=== PATIENT | female | born 2005 | race Caucasian/White ===

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

== ENCOUNTER 2023-01-16 02:23 | Emergency (ER) | payer OTHER, SELFPAY ==
[2023-01-16 02:29] VITALS: BP 120/62; PULSE 60; RESP 16; TEMP 36.5; O2SAT 98; BMI 26.4
--- NOTE | 2023-01-16 02:38 | ED_ITS ---
HPI - General Adult General Chief complaint: Abdominal Pain Stated complaint: ABD PAIN Time Seen by Provider: 01/16/23 02:27 Source: patient and family Mode of arrival: Ambulatory History of Present Illness HPI narrative: Patient is a 17-year-old female who has had issues with chronic abdominal/pelvic pain for many weeks/months. She is scheduled for surgery tomorrow with her wrapper operator further evaluate the left-sided pain and potential removal of her fallopian tube. She states that for the past several days she is had increasing pain in the left side of her abdomen that is consistent with her prior discomfort. No vomiting. No fevers. No change in bowel habits. No urinary symptoms. No vaginal bleeding. Related Data Previous Rx's Medication Instructions Recorded clindamycin HCl 150 mg capsule 150 mg PO DAILY #30 caps 06/20/22 oxycodone 5 mg tablet 5 mg PO Q4H PRN pain #20 tabs 07/11/22 hydromorphone 4 mg tablet 4 mg PO Q4-6H PRN pain #20 tabs 07/12/22 (Dilaudid) hydrocodone 5 mg-acetaminophen 325 1 tab PO Q4-6H PRN pain #10 tabs 09/10/22 mg tablet ketorolac 10 mg tablet 10 mg PO Q6H PRN pain #14 tabs 09/10/22 ondansetron 4 mg disintegrating 4 mg PO TID-QID PRN nausea and 09/10/22 tablet vomiting #10 tabs fluconazole 150 mg tablet 150 mg PO Q48H 2 doses #2 tabs 12/04/22 (Diflucan) Allergies Allergy/AdvReac Type Severity Reaction Status Date / Time Opioids - Morphine Analogues Allergy Intermediate rash Verified 01/10/23 14:59 doxycycline AdvReac Intermediate vomitt Verified 01/10/23 14:59 amoxicillin AdvReac Vomiting Verified 01/10/23 15:00 Review of Systems Constitutional Constitutional: Reports system reviewed and no additional complaints, except as documented Gastrointestinal Gastrointestinal: Reports system reviewed and no additional complaints, except as documented Genitourinary Genitourinary: Reports system reviewed and no additional complaints, except as documented Integumentary/Breasts Skin/Breast: Reports system reviewed and no additional complaints, except as documented Patient History Medical History Acne (~2015) Chlamydia infection (~2020) Endometriosis (~2020) Heavy menstrual period (~2018) Irregular menstrual cycle (~2020) Ovarian cyst Painful menstrual periods (~2020) Surgical History (Updated 01/10/23 @ 08:13 by Winifred Redman RN) Anesthesia Hx of laparoscopy (07/11/22) Lymphangioma S/P ACL reconstruction (~09/11/21) TOA (tubo-ovarian abscess) (~10/01/21) Social History household members: friend(s) Smoking Status: Current some day smoker alcohol intake: current Smoking Status: Current some day smoker tobacco type: vaping alcohol intake frequency: holidays/special occasions only Alcohol type: wine Substance Use Type: does not use Exam Initial Vital Signs Initial Vital Signs: Vital Signs Temperature 97.7 F 01/16/23 02:29 Pulse Rate 60 01/16/23 02:29 Respiratory Rate 16 01/16/23 02:29 Blood Pressure 120/62 01/16/23 02:29 Pulse Oximetry 98 01/16/23 02:29 Oxygen Delivery Method Room Air 01/16/23 02:29 Const General: cooperative and comfortable GI Inspection: normal to inspection Palpation: soft, No firm, No rigid and tender (Left lower quadrant) Other: Left-sided adnexal pain Back/Spine/Pelvis Back: No CVA tenderness Neuro General: patient alert, patient awake and moves all extremities Course Orders Ordered: Discontinued Medications Hydromorphone HCl (Hydromorphone 1 Mg Inj) 1 mg IM NOW ONE Stop: 01/16/23 02:40 Last Admin: 01/16/23 02:47 Dose: 1 mg Documented By: MARIS Vital Signs Vital signs: Vital Signs - 8 hr 01/16/23 02:29 Temperature 97.7 F Pulse Rate 60 Respiratory Rate 16 Blood Pressure 120/62 Pulse Oximetry 98 Oxygen Delivery Method Room Air Medical Decision Making Lab Data Labs: Point of Care Testing Test Results Negative Glucose POC 94 Urine Dip Bedside Urine Glucose Negative Bedside Urine Bilirubin - Negative Bedside Urine Ketone - Negative Urine Specific [place] 1.020 Bedside Urine Occult Blood - Negative Bedside Urine pH 6.0 Bedside Urine Protein - Negative Bedside Urine Urobilinogen - Negative Bedside Urine Nitrite - Negative Bedside Urine Leukocytes - Negative Esterase Point of care testing: Point of Care Testing Test Results Negative Glucose POC 94 Urine Dip Bedside Urine Glucose Negative Bedside Urine Bilirubin - Negative Bedside Urine Ketone - Negative Urine Specific [place] 1.020 Bedside Urine Occult Blood - Negative Bedside Urine pH 6.0 Bedside Urine Protein - Negative Bedside Urine Urobilinogen - Negative Bedside Urine Nitrite - Negative Bedside Urine Leukocytes - Negative Esterase MDM Narrative Medical decision making narrative: Patient does have a benign exam. She does have left-sided abdomen/adnexal pain that she states is consistent with her prior pain. She is had a very extensive workup of the symptoms. Given the fact that she is scheduled for surgery tomorrow she is an extensive workup we will hold on further imaging for now. She was given pain medication which she states improved her pain quite a bit. Will discharge patient home with instructions to keep her appointment with the wrapper operator tomorrow for her surgery. She was given return precautions. She expressed understanding Discharge Plan Departure Patient Disposition: Home Clinical Impression: Abdominal pain Instructions: DI for Abdominal Pain-Adult Activity Restrictions/Additional Instructions: Recommend that you continue to take all of your medications as directed and follow all of the instructions given to you by the surgeon. Return to the emergency department for new symptoms. Prescriptions: No Action hydromorphone [Dilaudid] 4 mg tablet 4 mg PO Q4-6H PRN (Reason: pain) Qty: 20 0RF clindamycin HCl 150 mg capsule 150 mg PO DAILY Qty: 30 0RF fluconazole [Diflucan] 150 mg tablet 150 mg PO Q48H Qty: 2 4RF Rx Instructions: Repeat second dose 48 hrs after first dose. oxycodone 5 mg tablet 5 mg PO Q4H PRN (Reason: pain) Qty: 20 0RF hydrocodone-acetaminophen 5-325 mg tablet 1 tab PO Q4-6H PRN (Reason: pain) Qty: 10 0RF ketorolac 10 mg tablet 10 mg PO Q6H PRN (Reason: pain) Qty: 14 0RF ondansetron 4 mg tablet,disintegrating 4 mg PO TID-QID PRN (Reason: nausea and vomiting) Qty: 10 0RF Referrals: Ana Rosa Guy ARNP [Primary Care Provider] - Stand Alone Forms: Patient Portal/API, Work Release Note
[2023-01-16] MEDS: HYDROMORPHONE 1 MG INJ IM (02:47)
== END 2023-01-16 03:25 | disposition home or self-care (01) ==
PROVIDERS: Emergency Provider Emergency Medicine; PCP Nurse Practitioner Family
DX: R10.2 Pelvic and perineal pain (principal)
CPT/HCPCS: 81003; 81025; 82962; 96372; 99283; J1170

== ENCOUNTER 2023-01-30 05:16 | Emergency (ER) | payer OTHER, SELFPAY ==
--- NOTE | 2023-01-30 05:20 | ED.ABDPAIN ---
HPI - Abdominal Pain <Tory Edgar, - Last Filed: 01/31/23 02:59> General Chief Complaint: Abdominal Pain Stated Complaint: abd pain Time Seen by Provider: 01/30/23 05:18 Source: patient Mode of arrival: Ambulatory Limitations: no limitations History of Present Illness HPI narrative: This is a 17-year-old female with history of prior tubo-ovarian abscess with salpingectomy on the right. Patient had surgery scheduled for ex lap with OBGYN for evaluation and this was delayed by scheduling circumstances and has been rescheduled for later in the month. Patient states she started having some lower pelvic discomfort about 2 or 3 days ago she thought she might have pulled a muscle it has been slowly increasing over time. She went to work out last night and that made things worse. She denies fevers or chills, no chest pain or shortness of breath, no lightheadedness or passing out, no nausea, no vomiting. She states she is been stooling regularly with form soft stools. No diarrhea, constipation, no black or bloody stools. She denies dysuria, urgency or frequency. No vaginal bleeding or discharge. Patient states this feels different as it is right-sided but also goes to the right upper abdomen which is atypical. She is denying any flank pain. Patient denies any other surgeries besides her right fallopian tube removal. She has allergies to morphine, doxycycline and amoxicillin. No tobacco, alcohol or illicit. She is accompanied by her mother today. Patient is following with RENATE Tinsley. Related Data Previous Rx's Medication Instructions Recorded clindamycin HCl 150 mg capsule 150 mg PO DAILY #30 caps 06/20/22 oxycodone 5 mg tablet 5 mg PO Q4H PRN pain #20 tabs 07/11/22 hydromorphone 4 mg tablet 4 mg PO Q4-6H PRN pain #20 tabs 07/12/22 (Dilaudid) hydrocodone 5 mg-acetaminophen 325 1 tab PO Q4-6H PRN pain #10 tabs 09/10/22 mg tablet ketorolac 10 mg tablet 10 mg PO Q6H PRN pain #14 tabs 09/10/22 ondansetron 4 mg disintegrating 4 mg PO TID-QID PRN nausea and 09/10/22 tablet vomiting #10 tabs fluconazole 150 mg tablet 150 mg PO Q48H 2 doses #2 tabs 12/04/22 (Diflucan) hydrocodone 5 mg-acetaminophen 325 1 tab PO Q4-6H PRN pain #20 tabs 01/30/23 mg tablet ketorolac 10 mg tablet 10 mg PO Q6H PRN pain #14 tabs 01/30/23 ondansetron 4 mg disintegrating 4 mg PO TID-QID PRN nausea and 01/30/23 tablet vomiting #10 tabs Allergies Allergy/AdvReac Type Severity Reaction Status Date / Time Opioids - Morphine Analogues Allergy Intermediate rash Verified 01/10/23 14:59 doxycycline AdvReac Intermediate vomitt Verified 01/10/23 14:59 amoxicillin AdvReac Vomiting Verified 01/10/23 15:00 Review of Systems <Tory Edgar DO - Last Filed: 01/31/23 02:59> Review of Systems ROS Unobtainable: All systems reviewed & are unremarkable except as noted in HPI and below Patient History <Tory Edgar DO - Last Filed: 01/31/23 02:59> Medical History Acne (~2015) Chlamydia infection (~2020) Endometriosis (~2020) Heavy menstrual period (~2018) Irregular menstrual cycle (~2020) Ovarian cyst Painful menstrual periods (~2020) Surgical History Anesthesia Hx of laparoscopy (07/11/22) Lymphangioma S/P ACL reconstruction (~09/11/21) TOA (tubo-ovarian abscess) (~10/01/21) Social History household members: friend(s) Smoking Status: Current some day smoker alcohol intake: current Smoking Status: Current some day smoker tobacco type: vaping alcohol intake frequency: holidays/special occasions only Alcohol type: wine Substance Use Type: does not use Exam <Tory Edgar DO - Last Filed: 01/31/23 02:59> Narrative Exam Narrative: GENERAL: Alert and oriented x three, moderate distress. HEENT: Head normocephalic, atraumatic, EOMI, pupils reactive, face symmetric, moist mucous membranes NECK: Supple, full range of motion CARDIOVASCULAR: Regular rate and rhythm without murmurs, rubs or gallops. RESPIRATORY: Breath sounds equal bilaterally, no wheezes rales or rhonchi. ABDOMEN: Soft, right lower and upper quadrant tenderness. Normoactive bowel sounds all 4 quadrants. No guarding or rebound, rigidity, no mass : No CVA tenderness EXTREMITIES: Normal range of motion, no clubbing or edema. Neurovascularly intact NEUROLOGICAL: Cranial nerves II through XII grossly intact. Moving all extremities SKIN: Warm, dry, no petechiae, no rashes or lesions. Initial Vital Signs Initial Vital Signs: Vital Signs Temperature 97 F L 01/30/23 05:21 Pulse Rate 68 01/30/23 05:21 Respiratory Rate 18 01/30/23 05:21 Blood Pressure 137/85 01/30/23 05:21 Pulse Oximetry 99 01/30/23 05:21 Oxygen Delivery Method Room Air 01/30/23 05:21 <Jose Lynne DO - Last Filed: 01/30/23 19:18> Initial Vital Signs Initial Vital Signs: Vital Signs Temperature 97 F L 01/30/23 05:21 Pulse Rate 68 01/30/23 05:21 Respiratory Rate 18 01/30/23 05:21 Blood Pressure 137/85 01/30/23 05:21 Pulse Oximetry 99 01/30/23 05:21 Oxygen Delivery Method Room Air 01/30/23 05:21 Course <Troy Edgar, DO - Last Filed: 01/31/23 02:59> Orders Ordered: Discontinued Medications Hydromorphone HCl (Hydromorphone 0.5 Mg Inj) 0.5 mg IV NOW ONE Stop: 01/30/23 08:29 Last Admin: 01/30/23 08:39 Dose: 0.5 mg Documented By: AUSTIN Sodium Chloride (Normal Saline 0.9%) 1,000 mls @ 1,000 mls/hr IV BOLUS ONE Stop: 01/30/23 06:32 Last Infusion: 01/30/23 06:55 Dose: 0 mls/hr Documented By: Admin: 01/30/23 05:52 Dose: 1,000 mls/hr Documented By: GC Ketorolac Tromethamine (Ketorolac 30 Mg/Ml Vial) 15 mg IV NOW ONE Stop: 01/30/23 05:34 Last Admin: 01/30/23 05:51 Dose: 15 mg Documented By: MARIS Vital Signs Vital signs: Vital Signs - 8 hr 01/30/23 05:21 Temperature 97 F L Pulse Rate 68 Respiratory Rate 18 Blood Pressure 137/85 Pulse Oximetry 99 Oxygen Delivery Method Room Air <Jose Lynne DO - Last Filed: 01/30/23 19:18> Orders Ordered: Discontinued Medications Hydromorphone HCl (Hydromorphone 0.5 Mg Inj) 0.5 mg IV NOW ONE Stop: 01/30/23 08:29 Last Admin: 01/30/23 08:39 Dose: 0.5 mg Documented By: AUSTIN Sodium Chloride (Normal Saline 0.9%) 1,000 mls @ 1,000 mls/hr IV BOLUS ONE Stop: 01/30/23 06:32 Last Infusion: 01/30/23 06:55 Dose: 0 mls/hr Documented By: Admin: 01/30/23 05:52 Dose: 1,000 mls/hr Documented By: MARIS Ketorolac Tromethamine (Ketorolac 30 Mg/Ml Vial) 15 mg IV NOW ONE Stop: 01/30/23 05:34 Last Admin: 01/30/23 05:51 Dose: 15 mg Documented By: MARIS Vital Signs Vital signs: Vital Signs - 8 hr 01/30/23 05:21 Temperature 97 F L Pulse Rate 68 Respiratory Rate 18 Blood Pressure 137/85 Pulse Oximetry 99 Oxygen Delivery Method Room Air MDM - Abdominal Pain <Tory Edgar DO - Last Filed: 01/31/23 02:59> Lab Data 01/30/23 05:45 01/30/23 05:45 Labs: Lab Results 01/30/23 01/30/23 01/30/23 Range/Units 05:45 05:45 05:45 WBC 6.7 (4.5-11.0) X10^3/uL RBC 4.32 (4.0-5.2) X10^6/uL Hgb 12.7 (12.0-16.0) g/dL Hct 37.3 (36-46) % MCV 86.4 (80-100) fL MCH 29.4 (26-34) PG MCHC 34.0 (30-36) % RDW 14.3 (11.6-14.8) % Plt Count 304 (150-400) X10^3/uL Neut % (Auto) 58.4 (50-75) % Lymph % (Auto) 28.8 (25-40) % [place] % (Auto) 9.6 (3-14) % Eos % (Auto) 2.5 (2-4) % Baso % (Auto) 0.7 (0-2) % Neut # (Auto) 3900 (1262-8600) /uL Lymph # (Auto) 1900 (1563-7198) /uL [place] # (Auto) 600 (0-900) /uL Eos # (Auto) 200 (0-450) /uL Baso # (Auto) 0 (0-100) /uL Sodium 135 L (137-145) mmol/L Potassium 3.7 (3.4-5.1) mmol/L Chloride 103 (98-107) mmol/L Carbon Dioxide 26 (22-32) mmol/L BUN 12 (7-17) mg/dL Creatinine 0.67 (0.52-1.04) mg/dL Estimated GFR > 60 (>60) mL/min BUN/Creatinine Ratio 17.9 (6-22) Glucose 83 (70-100) mg/dL Calcium 8.6 (8.4-10.2) mg/dL Total Bilirubin 0.7 (0.2-1.3) mg/dL AST 27 (14-36) IU/L ALT 30 (<35) IU/L Alkaline Phosphatase 80 (38-126) U/L Total Protein 6.5 (6.3-8.2) g/dL Albumin 3.9 (3.5-5.0) g/dL Globulin 2.6 (1.7-4.1) g/dL Albumin/Globulin Ratio 1.5 (1.0-2.8) Lipase 104 (23-300) U/L Serum , Qual Cancelled Point of care testing: Point of Care Testing Test Results Negative MDM Narrative Medical decision making narrative: This is a 17-year-old female who presents with acute on chronic or pelvic/abdominal pain. On exam patient has right upper and lower quadrant tenderness. She is afebrile, not tachycardic or hypotensive. She appears quite uncomfortable. Plan for labs including CBC, CMP, lipase, hCG and urine sample. Patient has had prior tubo-ovarian abscess as well as hemorrhagic cyst in the past. Plan for fluids, pain medication, ultrasound and reassessment. Discussed obtaining CT but felt be more appropriate to evaluate with ultrasound at this time. Patient signed out to Dr. Lynne while awaiting results. <Jose Lynne, DO - Last Filed: 01/30/23 19:18> Lab Data Labs: Lab Results 01/30/23 01/30/23 01/30/23 Range/Units 05:45 05:45 05:45 WBC 6.7 (4.5-11.0) X10^3/uL RBC 4.32 (4.0-5.2) X10^6/uL Hgb 12.7 (12.0-16.0) g/dL Hct 37.3 (36-46) % MCV 86.4 (80-100) fL MCH 29.4 (26-34) PG MCHC 34.0 (30-36) % RDW 14.3 (11.6-14.8) % Plt Count 304 (150-400) X10^3/uL Neut % (Auto) 58.4 (50-75) % Lymph % (Auto) 28.8 (25-40) % [place] % (Auto) 9.6 (3-14) % Eos % (Auto) 2.5 (2-4) % Baso % (Auto) 0.7 (0-2) % Neut # (Auto) 3900 (7768-3883) /uL Lymph # (Auto) 1900 (4880-3822) /uL [place] # (Auto) 600 (0-900) /uL Eos # (Auto) 200 (0-450) /uL Baso # (Auto) 0 (0-100) /uL Sodium 135 L (137-145) mmol/L Potassium 3.7 (3.4-5.1) mmol/L Chloride 103 (98-107) mmol/L Carbon Dioxide 26 (22-32) mmol/L BUN 12 (7-17) mg/dL Creatinine 0.67 (0.52-1.04) mg/dL Estimated GFR > 60 (>60) mL/min BUN/Creatinine Ratio 17.9 (6-22) Glucose 83 (70-100) mg/dL Calcium 8.6 (8.4-10.2) mg/dL Total Bilirubin 0.7 (0.2-1.3) mg/dL AST 27 (14-36) IU/L ALT 30 (<35) IU/L Alkaline Phosphatase 80 (38-126) U/L Total Protein 6.5 (6.3-8.2) g/dL Albumin 3.9 (3.5-5.0) g/dL Globulin 2.6 (1.7-4.1) g/dL Albumin/Globulin Ratio 1.5 (1.0-2.8) Lipase 104 (23-300) U/L Serum , Qual Cancelled Point of care testing: Point of Care Testing Test Results Negative MDM Narrative Medical decision making narrative: This is a 17-year-old female who presents with acute on chronic or pelvic/abdominal pain. On exam patient has right upper and lower quadrant tenderness. She is afebrile, not tachycardic or hypotensive. She appears quite uncomfortable. Plan for labs including CBC, CMP, lipase, hCG and urine sample. Patient has had prior tubo-ovarian abscess as well as hemorrhagic cyst in the past. Plan for fluids, pain medication, ultrasound and reassessment. Discussed obtaining CT but felt be more appropriate to evaluate with ultrasound at this time. Patient signed out to Dr. Lynne while awaiting results. [[id number]] (Maged) Patient received in sign out from [[email or web address]]. I have reviewed the clinical course and performed an independent history and physical exam. At this time we are still Pending results of imaging At time of discharge there are no surgical findings on imaging, labs are within the normal, patient's pain is well controlled and she is tolerating orals. We have discussed findings including plan for follow-up Discharge Plan Departure Patient Disposition: Home Clinical Impression: Right lower quadrant abdominal pain Instructions: DI for Abdominal Pain-Adult Activity Restrictions/Additional Instructions: *You have been diagnosed with [right lower quadrant ] *What to do: *Please continue to take your regular medications as directed. [x ] New medication prescriptions sent to your pharmacy: [ [facility] ] [ ] New medication written as a paper prescription [ ] No new medications given *Please follow up with your primary care provider in 2-3 days, call for an appointment. Let them know you were seen in the Emergency Department and that we ask that you be seen in follow up. We will electronically transmit a record of today's note if your PCP is in our system *If you do not have a primary care provider please contact the [facility] Resource line at [phone]. They will ask some questions about your medical history and help get you set up with a doctor in the community. *Return to Emergency Department if you should have any new, worsening or concerning symptoms, such as [fever greater than 101 F, shaking chills, worsening pain, persistent vomiting or other bothersome symptoms] Prescriptions: New hydrocodone-acetaminophen 5-325 mg tablet 1 tab PO Q4-6H PRN (Reason: pain) Qty: 20 0RF ketorolac 10 mg tablet 10 mg PO Q6H PRN (Reason: pain) Qty: 14 0RF ondansetron 4 mg tablet,disintegrating 4 mg PO TID-QID PRN (Reason: nausea and vomiting) Qty: 10 0RF No Action hydromorphone [Dilaudid] 4 mg tablet 4 mg PO Q4-6H PRN (Reason: pain) Qty: 20 0RF clindamycin HCl 150 mg capsule 150 mg PO DAILY Qty: 30 0RF fluconazole [Diflucan] 150 mg tablet 150 mg PO Q48H Qty: 2 4RF Rx Instructions: Repeat second dose 48 hrs after first dose. oxycodone 5 mg tablet 5 mg PO Q4H PRN (Reason: pain) Qty: 20 0RF hydrocodone-acetaminophen 5-325 mg tablet 1 tab PO Q4-6H PRN (Reason: pain) Qty: 10 0RF ketorolac 10 mg tablet 10 mg PO Q6H PRN (Reason: pain) Qty: 14 0RF ondansetron 4 mg tablet,disintegrating 4 mg PO TID-QID PRN (Reason: nausea and vomiting) Qty: 10 0RF Referrals: Ana Rosa Guy ARNP [Primary Care Provider] - Rei Hahn MD [Physician] - Stand Alone Forms: Patient Portal/API
[2023-01-30 05:21] VITALS: BP 137/85; PULSE 68; RESP 18; TEMP 36.1; O2SAT 99; BMI 28.7
--- NOTE | 2023-01-30 05:33 | DI.US.S_ITS ---
PROCEDURE: US PELVIC COMPLETE INDICATIONS: RIGHT PELVIC PAIN TECHNIQUE: Real-time scanning was performed of the pelvic organs, with image documentation. Additional endovaginal scanning was necessary due to incomplete visualization of the adnexal and endometrial structures by transabdominal scanning. COMPARISON: [facility], , US PELVIC COMPLETE, 12/04/2022, 15:25. FINDINGS: Uterus: Uterus is anteverted and normal in size at 6.7 x 3.7 x 5.2 cm. The myometrium is homogeneous. The endometrium measures 14 mm combined thickness. Ovaries: The right ovary measures 3.7 x 4.0 x 2.8 cm, with a calculated ovarian volume of 21.3 cc. The left ovary measures 2.9 x 2.0 x 2.7 cm, with a calculated ovarian volume of 8.1 cc. A 2.6 x 2.1 x 2.6 cm simple cyst/dominant follicle seen in the right ovary. Less than 12 follicles can be seen in each ovary. No adnexal masses are seen. Other: Physiologic amount of free fluid is present. IMPRESSION: Right ovary is enlarged by a 2.6 cm simple cyst. No acute sonographic abnormality. There is no significant discrepancy when compared to the overnight preliminary report. We strive to produce accurate, complete, and clear reports of imaging services. To assist us in improving patient care, this report was composed using standard report templates and voice recognition software. Therefore, it may contain abnormal punctuation, insertions and/or omissions. Occasional wrong-word or sound-alike substitutions may occur. Though we review the report and make efforts to correct it, we do recommend that the report be read carefully in proper context to recognize any text inaccuracies. Approved by: Onesimo Sin M.D. on 01/30/2023 at 8:55
--- NOTE | 2023-01-30 05:33 | DI.US.S_ITS ---
PROCEDURE: US ABDOMEN LIMITED INDICATIONS: RIGHT FLANK PAIN TECHNIQUE: Real-time focused scanning was performed of the abdomen, with image documentation. COMPARISON: [facility], CT, CT ABDOMEN PELVIS W CON, 09/10/2022, 3:28. FINDINGS: Liver is normal in size at 14.5 cm and demonstrates normal echogenicity. The gallbladder appears normal without gallstones or gallbladder wall thickening. There is no pericholecystic fluid. Sonographic Rushing sign is negative. No intrahepatic or extrahepatic biliary duct dilatation. Common bile duct measures 2.9 mm in diameter. The visualized portions of the pancreas are unremarkable. Right kidney measures 9.4 cm in length. No hydronephrosis. No free fluid is seen in the right upper quadrant. IMPRESSION: No acute sonographic abnormality in the right upper quadrant. There is no significant discrepancy when compared to the overnight preliminary report. Approved by: Onesimo Sin M.D. on 01/30/2023 at 8:52
[2023-01-30] MEDS: KETOROLAC 30 MG/ML VIAL 15 MG IV (05:51)
[2023-01-30] MEDS: SODIUM CHLORIDE 0.9% 1,000 ML 1000 ML IV (05:52)
[2023-01-30 07:06] LABS: Add Manual Diff / Slide Review NO; Basophils Absolute Auto 0 /uL (0-100); Basophils Percent Auto 0.7 % (0-2); Eosinophils Absolute Auto 200 /uL (0-450); Eosinophils Percent Auto 2.5 % (2-4); Hematocrit 37.3 % (36-46); Hemoglobin 12.7 g/dL (12.0-16.0); Lymphocytes Absolute Auto 1900 /uL (1100-4500); Lymphocytes Percent Auto 28.8 % (25-40); Mean Corpuscular Hemoglobin 29.4 PG (26-34); Mean Corpuscular Volume 86.4 fL (80-100); Monocytes Absolute Auto 600 /uL (0-900); Monocytes Percent Auto 9.6 % (3-14); Neutrophils Absolute Auto 3900 /uL (1500-7000); Neutrophils Percent Auto 58.4 % (50-75); Platelet Count 304 X10^3/uL (150-400); Red Blood Cell Count 4.32 X10^6/uL (4.0-5.2); Red Cell Distribution Width 14.3 % (11.6-14.8); White Blood Cell Count 6.7 X10^3/uL (4.5-11.0)
[2023-01-30 07:20] LABS: Alanine Aminotransferase 30 IU/L (<35); Albumin 3.9 g/dL (3.5-5.0); Albumin Globulin Ratio 1.5 (1.0-2.8); Alkaline Phosphatase 80 U/L (38-126); Aspartate Aminotransferase 27 IU/L (14-36); BUN Creatinine Ratio 17.9 (6-22); Bilirubin Total 0.7 mg/dL (0.2-1.3); Blood Urea Nitrogen 12 mg/dL (7-17); Calcium 8.6 mg/dL (8.4-10.2); Carbon Dioxide 26 mmol/L (22-32); Chloride 103 mmol/L (98-107); Estimated Glomerular Filt Rate > 60 mL/min (>60); Globulin 2.6 g/dL (1.7-4.1); Glucose 83 mg/dL (70-100); HEMOLYSIS < 15 (0-50); Lipase 104 U/L (23-300); Potassium 3.7 mmol/L (3.4-5.1); Sodium 135 mmol/L (137-145); Total Protein 6.5 g/dL (6.3-8.2)
[2023-01-30] MEDS: HYDROMORPHONE 0.5 MG INJ IV (08:39)
[2023-01-30 08:43] VITALS: PULSE 71; O2SAT 97
[2023-01-30 08:45] VITALS: BP 117/56; PULSE 64; O2SAT 98
[2023-01-30 09:00] VITALS: PULSE 55; O2SAT 98
== END 2023-01-30 09:14 | disposition home or self-care (01) ==
PROVIDERS: Emergency Medicine; Emergency Provider Emergency Medicine; PCP Nurse Practitioner Family
DX: R10.31 Right lower quadrant pain (principal); R10.2 Pelvic and perineal pain
CPT/HCPCS: 36415; 76705; 76830; 76856; 80053; 81025; 83690; 85025; 93976; 96374; 96375; 99284; J1170; J1885

== ENCOUNTER 2023-02-06 13:45 | Day surgery (SDC) | payer OTHER, SELFPAY ==
[2023-01-10 08:05] VITALS: BMI 28.7
[2023-02-06] VITALS (8 sets, daily range): BP systolic 110–147; BP diastolic 60–91; PULSE 55–95; RESP 12–21; TEMP 36.3–36.9; O2SAT 98–100; BMI 28.7
[2023-02-06] MEDS: LACTATED RINGERS 1,000 ML 42 ML IV (14:31)
[2023-02-06] MEDS: SCOPOLAMINE 1 PATCH TOP (15:57)
--- NOTE | 2023-02-06 16:06 | PM.PREOP ---
Pre-operative Note COVID-19 COVID-19 status: Not tested Criteria for continued procedure: Non-surgical alternatives not available or appropriate per current SOC Interval Note History & Physical reviewed/Exam performed by Physician: Yes Changes to H&P: No
--- NOTE | 2023-02-06 16:38 | SUR.OPER ---
Lithotomy on padded OR bed, head on pillow, arms secured on padded arm boards at <90 degrees abduction. Legs secured in padded yellow fins stirrups.
[2023-02-06] MEDS: BUPIVACAINE 0.5% (PF) 30 ML, EPINEPHrine 0.15 MG INJ (16:50)
--- NOTE | 2023-02-06 17:24 | P.OP_ITS ---
Operative Date/Time/Diagnoses Date of procedure: 02/06/23 Time of procedure: 16:15 Pre-op diagnosis: Chronic pelvic pain History of right tubo-ovarian abscess Post-op diagnosis: other (Same as above; pelvic adhesions, minimal pelvic endometriosis) Procedure & Clinicians Procedure: Procedures Operation Date: 02/06/23 15:30 Actual Procedure Side Surgeon suad Bee Laparoscopy, with lysis of adhesions and fulguration of endometrial implants s Drainage follicular cyst, right ovary Rei Hahn MD Indications: Adeline is a 17-year-old nulligravida who returns today with a 4?month history of persistent left lower quadrant pain which is sharp and stabbing, and intermittent.? It does not seem to be related to her cycles but she is been bleeding for the last 2 weeks and her pain has been worse during that period of time.? In addition she has significant pain when she strains to have a bowel movement or empties her bladder.? Pelvic US performed 12/04/2022 shows: FINDINGS:? ?? Uterine body is normal in size.? Echogenic fluid in the uterine cavity may represent blood products.? There is no definite evidence of gestational sac.? There is a thick-walled 2.7 cm heterogeneous complex hypoechoic mass in the left ovary with peripheral vascularity.? This could potentially represent an ectopic although a corpus luteum or hemorrhagic cyst could have a similar appearance.? There is a similar but smaller 1.5 cm hypoechoic area in the left ovary.? ? IMPRESSION:? ? Bilateral ovarian hypoechoic masses with peripheral vascularity.? Ectopic cannot be strictly excluded for either these locations. ? No convincing evidence of intrauterine . ? Continued surveillance and correlation with serial serum beta-hCG measurements and clinical symptoms recommended. Because of the patient's persistent pain and the impact it is having on her ability to work and normal daily activities, she has decided that she would like to proceed with a 2nd laparoscopy with plans to remove the left fallopian tube if the tube is severely affected by adhesive disease and possible left ovarian cystectomy or possible left oophorectomy.? At the same time she would like to have a Mirena IUD inserted to address her persistent menometrorrhagia.? She presents today for her scheduled surgery. Surgeon: Rei aHhn Anesthesia Type: General Operative Notes Findings: The anterior cul-de-sac is free of any abnormality. There is no adhesions and there does not appear to be any superficial endometriosis in the anterior cul-de-sac. The uterus is normal in size and shape, retroverted. The left ovary is normal in appearance and size but has some filmy adhesions on the surface. There were no adhesions or endometrial implants in the ovarian fossa on the left. The left fallopian tube appears to be mobile and the fimbria appear unaffected by the patient's prior episode of acute salpingitis with right-sided tubo-ovarian abscess. In the absence of severe tubal disease, the decision was made to leave the left tube in-situ along with the left ovary which was also normal in appearance. The posterior cul-de-sac was largely unremarkable with the exception of a masters window immediately lateral to the left uterosacral ligament near its insertion in the posterior cervix on the left side. In the base of the masters window there appeared to be numerous superficial endometrial implants. All these implants were destroyed during the course of the surgery. There were no other areas of endometriosis visible in the posterior cul-de-sac. The right ovarian fossa had some filmy adhesions involving the ovary which were easily lysed with sharp and blunt dissection. The ovary on the right was enlarged slightly with a follicular cyst which was opened with monopolar current and drained of clear fluid. There was no evidence of any endometriosis or endometrioma within the right ovary. Using the appendix and the upper abdomen were normal to laparoscopic visualization. Closure Type: primary Specimen(s): none Estimated blood loss (mL): 10 Blood products transfused: none Procedure in detail: With the patient under satisfactory general anesthesia in the modified dorsal lithotomy position, the perineum, vagina, and abdomen were prepped and draped in the usual manner for laparoscopy. A pre-surgical safety time-out was then taken in accordance with [facility] OR protocols. No uterine manipulator was placed and attention was turned to the laparoscopy. The inferior edge of the umbilicus was infiltrated with 0.5% Marcaine with epinephrine and a 1 cm vertical incision was made. A Veress needle was then used to insufflate the abdomen with carbon dioxide and once it was properly insufflated, a 5 mm trocar and sleeve were placed through the incision into the abdominal cavity. The proper placement of the sleeve was confirmed with laparoscopy and a 2nd and 3rd 5 mm port was placed in the left and right mid quadrants using a similar technique. Using a 3 puncture technique the pelvis and abdomen were visualized and photographically documented. The ovary on the right side was mobilized and the adhesions in the ovarian fossa were lysed/removed with sharp and blunt dissection. A monopolar L hook was then used to puncture the surface of the follicular cyst and clear fluid was seen to exude from the defect created with the cautery. The inner surface of the follicular cyst was visualized with the laparoscope and found to be smooth with no abnormalities or suggestive endometriosis within the cyst. Attention was then turned to the left adnexa which was thoroughly visualized. The filmy adhesions on the surface of the ovary were removed with a combination of blunt dissection, sharp dissection, and judicious use of monopolar current. At the completion of the case the left ovary was completely mobile and the left fallopian tube was similarly mobile. Inspection of the left ovarian fossa showed no abnormalities but there was a masters window immediately lateral to the insertion of the uterosacral ligament. Monopolar current was used judiciously to destroy all areas of superficial endometriosis implants and at the completion of the process no other evidence of endometriosis was visible. The pelvis was thoroughly irrigated and fully inspected again. There were no areas of bleeding or other abnormalities noted. Accordingly the pneumoperitoneum was then vented the sleeves removed. A laparoscopic incisions were then closed with 4-0 Monocryl using inverted interrupted stitches, skin glue was applied, followed by appropriate dressings. Patient was then awakened from anesthesia and transferred to the PACU for a period of observation after having tolerated the procedure well Complications: none Post-operative Condition: stable Disposition: PACU Plan for aftercare: Routine postoperative care
[2023-02-06] MEDS: HYDROMORPHONE 2 MG INJ IV (17:56)
[2023-02-06] MEDS: ONDANSETRON 4 MG/2 ML INJ IV (18:00)
[2023-02-06] MEDS: hydrOXYzine 50 MG/ML INJ 25 MG IM (18:03)
[2023-02-06] MEDS: OXYCODONE/ACETAMINOPHEN 5/325 TABLET 1 TAB PO (18:24)
== END 2023-02-06 19:05 | disposition home or self-care (01) ==
PROVIDERS: PCP Nurse Practitioner Family; Referring Provider Obstetrics & Gynecology; Visit Provider Obstetrics & Gynecology
PROC: (CPT 58662; principal; 2023-02-06 15:30)
DX: R10.2 Pelvic and perineal pain (principal); N73.6 Female pelvic peritoneal adhesions (postinfective); N80.329 Endometriosis of the posterior cul-de-sac, unspecified depth; N83.01 Follicular cyst of right ovary
CPT/HCPCS: 58662; 49322; J0171; J1170; J2250; J2405; J2704; J3010; J3410

== ENCOUNTER 2023-03-16 13:19 | Emergency (ER) | payer OTHER, SELFPAY ==
[2023-03-16 13:25] VITALS: BP 126/77; PULSE 64; RESP 18; TEMP 36.7; O2SAT 99; BMI 26.9
--- NOTE | 2023-03-16 13:34 | DI.RAD.S_ITS ---
PROCEDURE: XR CHEST 2V INDICATIONS: chest congestion TECHNIQUE: 2 views of the chest were acquired. COMPARISON: None. FINDINGS: Surgical changes and devices: None. Lungs and pleura: No dense consolidations, pleural effusion, or pneumothorax. Slight opacification over the right cardiac border is likely secondary to mild pectus anterior chest wall deformity. Mediastinum: Mediastinal contours are normal. Heart size is normal. Bones and chest wall: No suspicious bony abnormalities. Soft tissues appear unremarkable. IMPRESSION: No acute cardiopulmonary disease. Dictated by: Lina Zavala M.D. on 03/16/2023 at 13:21 Approved by: Lina Zavala M.D. on 03/16/2023 at 13:22
--- NOTE | 2023-03-16 13:59 | ED_ITS ---
HPI - URI/Sore Throat <Vivi Grey PA-C - Last Filed: 03/16/23 15:09> General Chief Complaint: Upper Respiratory Symptoms Stated Complaint: SOB, cough Time Seen by Provider: 03/16/23 13:31 Source: patient Mode of arrival: Ambulatory History of Present Illness HPI Narrative: 18-year-old woman presents with concern for severe persistent cough going on for 2 weeks worsening, some headaches, feeling feverish although with no known fevers recently and generally feeling unwell for the last few days. She states she feels like her chest is ?full of phlegm? she has been coughing excessively despite taking Tessalon she does endorse some discomfort in the center of her chest specifically with coughing she says it feels a little like a burning sensation. Patient is concerned she may have pneumonia. She notes she previously had pneumonia when she was a teenager. Denies other respiratory history. Patient also states she is had less appetite the last few days she has been drinking fluids and she has been eating. She has some throat irritation but it is not particularly painful. Denies nausea, vomiting, diarrhea, ear pain or other symptoms. Related Data Previous Rx's Medication Instructions Recorded codeine 7.5 mg-guaifenesin 225 7.5 ml PO Q4-6H PRN cough #473 mL 03/16/23 mg/5 mL oral liquid sulfamethoxazole 400 1 tab PO BID Bordetella 03/16/23 mg-trimethoprim 80 mg tablet parapertussis 7 days #14 tabs (Bactrim) Allergies Allergy/AdvReac Type Severity Reaction Status Date / Time lactose Allergy Intermediate Hives/Nause Verified 03/16/23 13:28 a Opioids - Morphine Analogues Allergy Intermediate rash Verified 03/16/23 13:28 doxycycline AdvReac Intermediate vomitt Verified 03/16/23 13:28 amoxicillin AdvReac Vomiting Verified 03/16/23 13:28 Review of Systems <Vivi Grey PA-C - Last Filed: 03/16/23 15:09> Review of Systems Narrative: See HPI Patient History <Vivi Grey PA-C - Last Filed: 03/16/23 15:09> Medical History Acne (~2015) Chlamydia infection (~2020) Endometriosis (~2020) Heavy menstrual period (~2019) Irregular menstrual cycle (~2020) Ovarian cyst Painful menstrual periods (~2020) Surgical History Anesthesia Hx of laparoscopy (07/11/22) Lymphangioma S/P ACL reconstruction (~09/11/21) TOA (tubo-ovarian abscess) (~10/01/21) Social History household members: friend(s) Smoking Status: Never smoker alcohol intake: current Smoking Status: Never smoker tobacco type: vaping alcohol intake frequency: holidays/special occasions only Alcohol type: wine Substance Use Type: does not use Exam <Vivi Grey PA-C - Last Filed: 03/16/23 15:09> Narrative Exam Narrative: GENERAL: 18 year old patient appears stated age. Well-developed patient, in mild distress, nontoxic appearing. HEAD: Atraumatic. Normocephalic. EYES: Pupils equal round and reactive. Extraocular motions intact. No scleral icterus. No injection or drainage. ENT: Nose without bleeding, purulent drainage. Throat with mild posterior pharyngeal erythema, without tonsillar hypertrophy or exudate. Airway patent. Patient has right maxillary sinus tenderness with palpation on percussion, frontal and left maxillary sinuses are nontender. NECK: Trachea midline. Non tender. No lymphadenopathy CARDIOVASCULAR: Regular rate and rhythm without murmurs, gallops, or rubs. RESPIRATORY: Clear to auscultation. Shallow breaths with frequent coughing, Breath sounds equal bilaterally. No wheezes, rales, or rhonchi. GASTROINTESTINAL: Abdomen soft, non-tender, nondistended. EXTREMITIES: No edema or joint tenderness. BACK: Nontender without deformity or crepitance. No flank tenderness. NEURO: AOx3. SKIN: No rash or erythema of visible areas Initial Vital Signs Initial Vital Signs: Vital Signs Temperature 98.1 F 03/16/23 13:25 Pulse Rate 64 03/16/23 13:25 Respiratory Rate 18 03/16/23 13:25 Blood Pressure 126/77 03/16/23 13:25 Pulse Oximetry 99 03/16/23 13:25 Oxygen Delivery Method Room Air 03/16/23 13:25 <Jose Lynne DO - Last Filed: 03/16/23 15:36> Initial Vital Signs Initial Vital Signs: Vital Signs Temperature 98.1 F 03/16/23 13:25 Pulse Rate 64 03/16/23 13:25 Respiratory Rate 18 03/16/23 13:25 Blood Pressure 126/77 03/16/23 13:25 Pulse Oximetry 99 03/16/23 13:25 Oxygen Delivery Method Room Air 03/16/23 13:25 Course <Vivi Grey PA-C - Last Filed: 03/16/23 15:09> Course Course Narrative: Reviewed chest x-ray imaging with Dr. Lynne, patient did have opacity over the cardiac border, read as negative cardiopulmonary findings by Radiology however we feel there is a possibility this could represent an infiltrate. Based on patient's symptoms and history anticipate treating for pneumonia. 1430 Orders Ordered: ED Orders 03/16/23 13:34 Chest [XR chest 2V] Stat 03/16/23 13:42 Respiratory Panel (Film Array) Stat Vital Signs Vital signs: Vital Signs - 8 hr 03/16/23 13:25 03/16/23 14:56 Temperature 98.1 F Pulse Rate 64 66 Respiratory Rate 18 14 Blood Pressure 126/77 116/69 Pulse Oximetry 99 98 Oxygen Delivery Method Room Air Room Air <DO Daniel Roa Last Filed: 03/16/23 15:36> Orders Ordered: ED Orders 03/16/23 13:34 Chest [XR chest 2V] Stat 03/16/23 13:42 Respiratory Panel (Film Array) Stat Vital Signs Vital signs: Vital Signs - 8 hr 03/16/23 13:25 03/16/23 14:56 Temperature 98.1 F Pulse Rate 64 66 Respiratory Rate 18 14 Blood Pressure 126/77 116/69 Pulse Oximetry 99 98 Oxygen Delivery Method Room Air Room Air MDM - URI/Sore Throat <IVANNA Armstrong Last Filed: 03/16/23 15:09> Differential Diagnosis Differential diagnosis: Likely upper respiratory infection, sinusitis, viral infection, bronchitis and other (Viral pneumonia, bacterial pneumonia) Lab Data Labs: Lab Results 03/16/23 Range/Units 13:42 Chlamy pneumoniae PCR Not detected (Not Detect) Adenovirus (PCR) Not detected (Not Detect) B. pertussis DNA (PCR) Not detected (Not Detecte) B.parapertussis DNA PCR Detected H (Not Detecte) Coronavirus OC43 (PCR) Not detected (Not Detect) Coronavirus HKU1 (PCR) Not detected (Not Detect) Coronavirus 229E (PCR) Not detected (Not Detect) SARS-CoV-2 (PCR) Not detected (Not Detecte) Coronavirus NL63 (PCR) Not detected (Not Detect) Human Metapneumovir PCR Not detected (Not Detect) Influenza Type A (PCR) Not detected (Not Detect) Influenza Type B (PCR) Not detected (Not Detect) M. pneumoniae (PCR) Not detected (Not Detect) Parainfluenza 1 (PCR) Not detected (Not Detect) Parainfluenza 2 (PCR) Not detected (Not Detect) Parainfluenza 3 (PCR) Not detected (Not Detect) Parainfluenza 4 (PCR) Not detected (Not Detect) RSV (PCR) Not detected (Not Detect) Entero/Rhino (PCR) Not detected (Not Detect) Imaging Data Chest x-ray: Radiologist's Impression: [place] [address] XRay Report Signed Patient: Adeline Rosen MR#: [id number] : 2005 Acct:[id number] Age/Sex: 18 / F Date of Service: 03/16/23 Loc: Accession Number: [id number] ?? Procedure: XR chest 2V Ordering Provider: Vivi Grey P.A-C PROCEDURE:? XR CHEST 2V ? INDICATIONS:? chest congestion ? TECHNIQUE:? 2 views of the chest were acquired.? ? COMPARISON:? None. ? FINDINGS:? ? Surgical changes and devices:? None.? ? Lungs and pleura:? No dense consolidations, pleural effusion, or pneumothorax.? Slight opacification over the right cardiac border is likely secondary to mild pectus anterior chest wall deformity. ? Mediastinum:? Mediastinal contours are normal.? Heart size is normal.? ? Bones and chest wall:? No suspicious bony abnormalities.? Soft tissues appear unremarkable.? ? IMPRESSION:? No acute cardiopulmonary disease.? ? ? Dictated by: Lina Zavala M.D. on 03/16/2023 at 13:21 ? ? Approved by: Lina Zavala M.D. on 03/16/2023 at 13:22?? [facility] Narrative Medical decision making narrative: 18-year-old generally healthy-appearing woman presents with concern for 2 weeks of very persistent cough that has been bothersome kept her from sleeping feeling unwell over the last couple of days and had less appetite. Concern for possible pneumonia. Chest x-ray is read as negative however possible infiltrate/opacity. Patient's viral panel comes back positive for Bordetella parapertussis. Additional labs were not obtained as patient is generally well-appearing with unremarkable vitals. Given patient's allergy she is treated with Bactrim. Discussed options with her for cough medication and patient is agreeable to codeine cough medicine syrup we will continue the Tessalon Perles. Will monitor for new or worsening symptoms and understands return precautions. Follow-up plan discussed, all questions answered. Patient provided with a work note advised to stay out of work for the least the next 3 days while the antibiotics start work and to contact her employee health. <Jose Lynne, DO - Last Filed: 03/16/23 15:36> Lab Data Labs: Lab Results 03/16/23 Range/Units 13:42 Chlamy pneumoniae PCR Not detected (Not Detect) Adenovirus (PCR) Not detected (Not Detect) B. pertussis DNA (PCR) Not detected (Not Detecte) B.parapertussis DNA PCR Detected H (Not Detecte) Coronavirus OC43 (PCR) Not detected (Not Detect) Coronavirus HKU1 (PCR) Not detected (Not Detect) Coronavirus 229E (PCR) Not detected (Not Detect) SARS-CoV-2 (PCR) Not detected (Not Detecte) Coronavirus NL63 (PCR) Not detected (Not Detect) Human Metapneumovir PCR Not detected (Not Detect) Influenza Type A (PCR) Not detected (Not Detect) Influenza Type B (PCR) Not detected (Not Detect) M. pneumoniae (PCR) Not detected (Not Detect) Parainfluenza 1 (PCR) Not detected (Not Detect) Parainfluenza 2 (PCR) Not detected (Not Detect) Parainfluenza 3 (PCR) Not detected (Not Detect) Parainfluenza 4 (PCR) Not detected (Not Detect) RSV (PCR) Not detected (Not Detect) Entero/Rhino (PCR) Not detected (Not Detect) Discharge Plan Departure Patient Disposition: Home Clinical Impression: Atypical pneumonia, Cough, Bordetella parapertussis infection Activity Restrictions/Additional Instructions: *You have been diagnosed with [atypical pneumonia, Bordetella parapertussis infection] *What to do: *Please continue to take your regular medications as directed. [ 1] New medication prescriptions sent to your pharmacy: [Bactrim] [ ] New medication written as a paper prescription [ ] No new medications given *Please follow up with your primary care provider in 2-3 days, call for an appointment. Let them know you were seen in the Emergency Department and that we ask that you be seen in follow up. We will electronically transmit a record of today's note if your PCP is in our system. Please take the antibiotics for the full course even if your feeling better. I suspect that this should improve your cough in her symptoms, your cough medicine may be more helpful once the antibiotics start working. As we discussed options for helping with your cough, as even having lot of difficulty sleeping, even though it is coming up as an allergy due to possible lactose ingredient, ear open to trying a codeine cough syrup, I think this is reasonable given that your allergy to this is GI based with some loose stools. Please stay out of work for the next 3 days or so and contact your employee health department so that you do not share this infection. *If you do not have a primary care provider please contact the [facility] Resource line at [phone]. They will ask some questions about your medical history and help get you set up with a doctor in the community. *Return to Emergency Department if you should have any new, worsening or concerning symptoms, such as [fever greater than 101 F, shaking chills, worsening pain, persistent vomiting or other bothersome symptoms] Prescriptions: New sulfamethoxazole-trimethoprim [Bactrim] 400-80 mg tablet 1 tab PO BID 7 Days Qty: 14 0RF Rx Instructions: lactose, penicillin, doxycycline allergy codeine-guaifenesin 7.5-225 mg/5 mL liquid 7.5 ml PO Q4-6H PRN (Reason: cough) Qty: 473 0RF Referrals: Ana Rosa Guy ARNP [Primary Care Provider] - Stand Alone Forms: Patient Portal/API, Work Release Note <Jose Lynne DO - Last Filed: 03/16/23 15:36> Cosign ED Attending Cosignature Attestation: I was immediately available in the department for consultation. Documentation has been reviewed. I agree with assessment and plan.
[2023-03-16 14:41] LABS: Adenovirus Not Detected (Not Detect); B. parapertussis Detected (Not Detecte); Bordetella pertussis Not Detected (Not Detecte); Chlamydophila pneumoniae Not Detected (Not Detect); Coronavirus 229E Not Detected (Not Detect); Coronavirus HKU1 Not Detected (Not Detect); Coronavirus NL 63 Not Detected (Not Detect); Coronavirus OC43 Not Detected (Not Detect); Human Metapneumovirus Not Detected (Not Detect); Human Rhinovirus/Enterovirus Not Detected (Not Detect); Influenza A Not Detected (Not Detect); Influenza B Not Detected (Not Detect); Mycoplasma pneumoniae Not Detected (Not Detect); Parainfluenza Virus 1 Not Detected (Not Detect); Parainfluenza Virus 2 Not Detected (Not Detect); Parainfluenza Virus 3 Not Detected (Not Detect); Parainfluenza Virus 4 Not Detected (Not Detect); Respiratory Syncytial Virus Not Detected (Not Detect); SARS- CoV-2 Not Detected (Not Detecte)
[2023-03-16 14:56] VITALS: BP 116/69; PULSE 66; RESP 14; O2SAT 98
== END 2023-03-16 15:03 | disposition home or self-care (01) ==
PROVIDERS: Emergency Provider Student in an Organized Health Care Education/Training Program; PCP Nurse Practitioner Family
DX: J18.9 Pneumonia, unspecified organism (principal); R05.9 Cough, unspecified; A37.10 Whooping cough due to Bordetella parapertussis without pneumonia; Z20.822 Contact with and (suspected) exposure to COVID-19
CPT/HCPCS: 71046; 87633; 99283

== ENCOUNTER 2023-03-18 15:58 | Emergency (ER) | payer OTHER, SELFPAY ==
[2023-03-18 16:03] VITALS: BP 124/62; PULSE 76; RESP 18; TEMP 36.6; O2SAT 98; BMI 26.9
--- NOTE | 2023-03-18 16:13 | DI.RAD.S_ITS ---
PROCEDURE: XR CHEST 2V INDICATIONS: ?pna TECHNIQUE: 2 views of the chest were acquired. COMPARISON: [facility], CR, XR CHEST 2V, 03/16/2023, 13:32. FINDINGS: Surgical changes and devices: None. Lungs and pleura: Lungs are clear. No pleural effusions or pneumothorax. Mediastinum: Mediastinal contours are normal. Heart size is normal. Bones and chest wall: No suspicious bony abnormalities. Soft tissues appear unremarkable. IMPRESSION: No acute cardiopulmonary findings. Dictated by: Jaqueline Hsieh M.D. on 03/18/2023 at 17:03 Approved by: Jaqueline Hsieh M.D. on 03/18/2023 at 17:03
--- NOTE | 2023-03-18 17:26 | ED.RECABL ---
HPI - Recheck/Abnormal Lab/Rx <Serene Varela PA-C - Last Filed: 03/18/23 17:31> General Chief Complaint: Recheck/Abnormal Lab/Rx Stated Complaint: Headache, fever, worsening Time Seen by Provider: 03/18/23 16:12 Source: patient Mode of arrival: Ambulatory History of Present Illness HPI narrative: 18-year-old female presents to the ED with 2 days of headache and persistent cough. Patient was seen in the ED on 03/16/2023, diagnosed with Bordetella parapertussis, treated for atypical pneumonia with antibiotics, given codeine with guaifenesin for cough. Patient is here today since she has a headache, feels dehydrated, and a persistent cough. Patient denies fever, chills, nausea, vomiting, abdominal pain, diarrhea. Related Data Previous Rx's Medication Instructions Recorded codeine 10 mg-guaifenesin 100 mg/5 10 ml PO Q4-6H PRN cough #473 mL 03/16/23 mL oral liquid benzonatate 200 mg capsule 200 mg PO TID PRN cough #30 caps 03/18/23 Allergies Allergy/AdvReac Type Severity Reaction Status Date / Time lactose Allergy Intermediate Hives/Nause Verified 03/18/23 16:03 a Opioids - Morphine Analogues Allergy Intermediate rash Verified 03/18/23 16:03 doxycycline AdvReac Intermediate vomitt Verified 03/18/23 16:03 amoxicillin AdvReac Vomiting Verified 03/18/23 16:03 Review of Systems <Serene Varela PA-C - Last Filed: 03/18/23 17:31> Review of Systems ROS Unobtainable: All systems reviewed & are unremarkable except as noted in HPI and below Constitutional Constitutional: Reports body ache(s), Denies chills, Denies fatigue, Denies fever(s), Denies frequent falls, Reports headache(s), Denies lethargy and Denies weakness Eyes Eyes: Denies change in vision, Denies eye discharge, Denies irritation and Denies loss of vision ENT Ears, Nose, Mouth, and Throat: Denies change in voice, Denies dizziness, Reports headache(s), Denies neck pain, Denies sore throat and Denies throat swelling Cardiovascular Cardiovascular: Denies chest pain, Denies irregular heart rhythm, Denies lightheadedness, Denies palpitations, Denies dyspnea, Denies dyspnea on exertion and Denies orthopnea Respiratory Respiratory: Reports cough, Denies dyspnea, Denies dyspnea on exertion and Denies wheezing Gastrointestinal Gastrointestinal: Denies abdominal pain, Denies change in bowel habits, Denies diarrhea, Denies nausea and Denies vomiting Genitourinary Genitourinary: Denies hematuria, Denies flank pain, Denies urinary incontinence and Denies urinary urgency Musculoskeletal Musculoskeletal: Denies back pain, Denies muscle weakness, Denies neck pain, Denies numbness and Denies tingling Integumentary/Breasts Skin/Breast: Denies pruritus, Denies erythema, Denies rash and Denies wounds Neurologic Neurologic: Denies behavioral changes, Denies confusion, Denies dizziness, Denies frequent falls, Reports headache(s), Denies loss of vision, Denies numbness, Denies tingling and Denies weakness Psychiatric Psychiatric: Denies anxiety, Denies behavioral changes, Denies confusion, Denies depression, Denies homicidal ideation and Denies suicidal ideation Endocrine Endocrine: Denies fatigue, Denies flushing and Denies palpitations Hematologic/Lymphatic Hematologic/Lymphatic: Denies easy bruising Allergic/Immunologic Allergic/Immunologic: Denies urticaria, Denies throat swelling and Denies wheezing Patient History <Serene Varela PA-C - Last Filed: 03/18/23 17:31> Medical History Acne (~2015) Chlamydia infection (~2020) Endometriosis (~2020) Heavy menstrual period (~2018) Irregular menstrual cycle (~2020) Ovarian cyst Painful menstrual periods (~2020) Surgical History Anesthesia Hx of laparoscopy (07/11/22) Lymphangioma S/P ACL reconstruction (~09/11/21) TOA (tubo-ovarian abscess) (~10/01/21) Social History household members: friend(s) Smoking Status: Never smoker alcohol intake: current Smoking Status: Never smoker tobacco type: vaping alcohol intake frequency: holidays/special occasions only Alcohol type: wine Substance Use Type: does not use Exam <Serene Varela PA-C - Last Filed: 03/18/23 17:31> Narrative Exam Narrative: Const General:?cooperative, healthy appearing and comfortable HENMT Head:?normal to inspection Ears:?hearing grossly normal bilaterally Nose:?external nose normal Face and sinus:?normal facial exam and sinuses nontender Mouth:?oral mucosae normal Throat:?posterior oropharynx normal Eyes General:?appearance normal, both eyes and all related structures Neck Neck:?normal visual inspection and no lymphadenopathy noted Resp Effort & Inspection:?normal respiratory effort Auscultation:?clear to auscultation bilaterally Cardio Rate:?regular rate Rhythm:?regular rhythm Neuro General:?patient alert, patient awake and patient oriented x3 Initial Vital Signs Initial Vital Signs: Vital Signs Temperature 97.8 F 03/18/23 16:03 Pulse Rate 76 03/18/23 16:03 Respiratory Rate 18 03/18/23 16:03 Blood Pressure 124/62 03/18/23 16:03 Pulse Oximetry 98 03/18/23 16:03 Oxygen Delivery Method Room Air 03/18/23 16:03 <Jon Domínguez MD - Last Filed: 03/24/23 14:39> Initial Vital Signs Initial Vital Signs: Vital Signs Temperature 97.8 F 03/18/23 16:03 Pulse Rate 76 03/18/23 16:03 Respiratory Rate 18 03/18/23 16:03 Blood Pressure 124/62 03/18/23 16:03 Pulse Oximetry 98 03/18/23 16:03 Oxygen Delivery Method Room Air 03/18/23 16:03 Course <Serene Varela PA-C - Last Filed: 03/18/23 17:31> Orders Ordered: ED Orders 03/18/23 16:13 CXR [XR chest 2V] Stat Vital Signs Vital signs: Vital Signs - 8 hr 03/18/23 16:03 Temperature 97.8 F Pulse Rate 76 Respiratory Rate 18 Blood Pressure 124/62 Pulse Oximetry 98 Oxygen Delivery Method Room Air <Jon Domínguez MD - Last Filed: 03/24/23 14:39> Orders Ordered: ED Orders 03/18/23 16:13 CXR [XR chest 2V] Stat Vital Signs Vital signs: Vital Signs - 8 hr 03/18/23 16:03 Temperature 97.8 F Pulse Rate 76 Respiratory Rate 18 Blood Pressure 124/62 Pulse Oximetry 98 Oxygen Delivery Method Room Air [facility] Recheck/Abnormal Lab/Rx <Serene Varela PA-C - Last Filed: 03/18/23 17:31> [facility] Narrative Medical decision making narrative: 18-year-old female presents to the ED with 2 days of headache and persistent cough. Repeated chest x-ray today, no acute findings on x-ray. Physical exam is reassuring. Patient's symptoms are likely due to continuing URI. Will prescribe Tessalon Perles for cough. Patient has some Toradol at home left over from a prior surgery and agrees to take those for the headache along with Tylenol. Recommend adequate hydration. Recommend follow-up with PCP as soon as possible. ED return precautions discussed with patient. Patient verbalized understanding. Medical records reviewed: Yes Discharge Plan Departure Patient Disposition: Home Clinical Impression: Headache, Cough Instructions: Cough, DI for Headache Activity Restrictions/Additional Instructions: You were evaluated in the ED today for a persistent cough and headache. You are being prescribed Tessalon Perles for the cough. You may continue to take Toradol, Tylenol, continue to hydrate adequately for the headache. Your chest x-ray was normal today. Please follow-up with your PCP as soon as possible. Return to the ED if you have chest pain or trouble breathing. Prescriptions: New benzonatate 200 mg capsule 200 mg PO TID PRN (Reason: cough) Qty: 30 0RF No Action codeine-guaifenesin 10-100 mg/5 mL liquid 10 ml PO Q4-6H PRN (Reason: cough) Qty: 473 1RF Referrals: Ana Rosa Guy ARNP [Primary Care Provider] - Stand Alone Forms: Patient Portal/API <Jon Domínguez MD - Last Filed: 03/24/23 14:39> Cosign ED Attending Cosignature Attestation: I was immediately available in the department for consultation. ?This documentation has been reviewed and I agree with assessment and plan. Supervised by Jon Domínguez MD
[2023-03-18 17:27] VITALS: BP 112/57; PULSE 56; RESP 16; O2SAT 98
== END 2023-03-18 17:27 | disposition home or self-care (01) ==
PROVIDERS: Emergency Provider Student in an Organized Health Care Education/Training Program; PCP Nurse Practitioner Family
DX: R51.9 Headache, unspecified (principal); R05.9 Cough, unspecified
CPT/HCPCS: 71046; 99283

== ENCOUNTER 2023-05-27 00:25 | Emergency (ER) | payer OTHER, SELFPAY ==
[2023-05-27 00:32] VITALS: BP 126/82; PULSE 69; RESP 17; TEMP 36.8; O2SAT 99; BMI 27.3
[2023-05-27 01:04] LABS: Add Manual Diff / Slide Review NO; Basophils Absolute Auto 100 /uL (0-100); Basophils Percent Auto 0.6 % (0-2); Eosinophils Absolute Auto 400 /uL (0-450); Eosinophils Percent Auto 3.1 % (2-4); Hematocrit 40.5 % (36-46); Hemoglobin 13.7 g/dL (12.0-16.0); Lymphocytes Absolute Auto 3700 /uL (1100-4500); Mean Corpuscular HGB Conc 33.7 % (30-36); Mean Corpuscular Hemoglobin 29.7 PG (26-34); Mean Corpuscular Volume 88.1 fL (80-100); Monocytes Absolute Auto 800 /uL (0-900); Monocytes Percent Auto 6.8 % (3-14); Neutrophils Absolute Auto 7400 /uL (1500-7000); Neutrophils Percent Auto 59.5 % (50-75); Platelet Count 382 X10^3/uL (150-400); Red Cell Distribution Width 14.2 % (11.6-14.8); White Blood Cell Count 12.4 X10^3/uL (4.5-11.0)
--- NOTE | 2023-05-27 01:05 | ED_ITS ---
HPI - Abdominal Pain General Chief Complaint: Abdominal Pain Stated Complaint: back and abd pain Time Seen by Provider: 05/27/23 00:39 Source: patient Mode of arrival: Ambulatory History of Present Illness HPI narrative: 18-year-old female nonsmoker with history of endometriosis and rhabdomyolysis presents with her significant other and a chief complaint of gradually worsening left upper and left lower quadrant pain over the course of the day with radiation to her back. She states she is had urinary tract infections in the past but this feels different. She denies any dysuria, frequency or urgency. She denies constipation or diarrhea. She is had no nausea or vomiting. She denies fever or chills. She states she went to bed feeling fine and woke up not feeling great. She denies vaginal bleeding or discharge. Related Data Previous Rx's Medication Instructions Recorded codeine 10 mg-guaifenesin 100 mg/5 10 ml PO Q4-6H PRN cough #473 mL 03/16/23 mL oral liquid benzonatate 200 mg capsule 200 mg PO TID PRN cough #30 caps 03/18/23 hydrocodone 5 mg-acetaminophen 325 1 tab PO Q4-6H PRN pain #20 tabs 05/27/23 mg tablet ketorolac 10 mg tablet 10 mg PO Q6H PRN pain #14 tabs 05/27/23 ondansetron 4 mg disintegrating 4 mg PO TID-QID PRN nausea and 05/27/23 tablet vomiting #10 tabs Allergies Allergy/AdvReac Type Severity Reaction Status Date / Time lactose Allergy Intermediate Hives/Nause Verified 05/27/23 00:32 a Opioids - Morphine Analogues Allergy Intermediate rash Verified 05/27/23 00:32 doxycycline AdvReac Intermediate vomitt Verified 05/27/23 00:32 amoxicillin AdvReac Vomiting Verified 05/27/23 00:32 Review of Systems Review of Systems Narrative: GENERAL: See HPI HEENT: Denies sinus pain, ear pain, sore throat, difficulty swallowing, dizziness. RESPIRATORY: Denies dyspnea, cough, wheezing, hemoptysis, sputum. CARDIOVASCULAR: Denies chest pain, palpitations, orthopnea, edema, GASTROINTESTINAL: See HPI : See HPI MUSCULOSKELETAL: denies weakness, joint pain, or bony pain SKIN: Denies rash, skin lesions, or other NEUROLOGIC: Denies weakness, headache, numbness, change in speech, confusion, seizures, incoordination. PSYCHIATRIC: No concerning psychosocial issues. 12 point review of systems is negative except for those stated above Patient History Medical History Acne (~2015) Chlamydia infection (~2020) Endometriosis (~2020) Heavy menstrual period (~2018) Irregular menstrual cycle (~2020) Ovarian cyst Painful menstrual periods (~2020) Surgical History Anesthesia Hx of laparoscopy (07/11/22) Lymphangioma S/P ACL reconstruction (~09/11/21) TOA (tubo-ovarian abscess) (~10/01/21) Social History household members: friend(s) Smoking Status: Never smoker alcohol intake: current Smoking Status: Never smoker tobacco type: vaping alcohol intake frequency: holidays/special occasions only Alcohol type: wine Substance Use Type: does not use Exam Narrative Exam Narrative: GENERAL: [18] year old patient appears stated age. Well-developed patient, in mild distress. Obviously uncomfortable, rubbing her left flank HEAD: Atraumatic. Normocephalic. EYES: Pupils equal round and reactive. Extraocular motions intact. No scleral icterus. No injection or drainage. ENT: Nose without bleeding, purulent drainage. Throat without erythema, tonsillar hypertrophy or exudate. Airway patent. NECK: Trachea midline. Non tender CARDIOVASCULAR: Regular rate and rhythm without murmurs, gallops, or rubs. RESPIRATORY: Clear to auscultation. Breath sounds equal bilaterally. No wheezes, rales, or rhonchi. GASTROINTESTINAL: Abdomen soft, tender in left upper quadrant and CVA tenderness, nondistended. EXTREMITIES: No edema or joint tenderness. BACK: Nontender without deformity or crepitance. No flank tenderness. NEURO: AOx3. SKIN: No rash or erythema of visible areas Initial Vital Signs Initial Vital Signs: Vital Signs Temperature 98.3 F 05/27/23 00:32 Pulse Rate 69 05/27/23 00:32 Respiratory Rate 17 05/27/23 00:32 Blood Pressure 126/82 05/27/23 00:32 Pulse Oximetry 99 05/27/23 00:32 Oxygen Delivery Method Room Air 05/27/23 00:32 Course Orders Ordered: ED Orders 05/27/23 00:55 Complete Blood Count AUTO DIFF Stat Comprehensive Metabolic Panel Stat Lipase Stat Troponin & CK Cardiac Panel Stat 05/27/23 01:06 CT abdomen pelvis w con Stat 05/27/23 02:10 US pelvic complete Stat Ondansetron HCl (Ondansetron 4 Mg/2 Ml Inj) 4 mg IV NOW PRN PRN Reason: Nausea And Vomiting Discontinued Medications Hydrocodone Bitart/Acetaminophen (Hydrocodone/Acet 5/325 Prepack) 1 bottle MISC SEEINSTR ONE Stop: 05/27/23 03:27 Last Admin: 05/27/23 03:38 Dose: 1 bottle Hydromorphone HCl (Hydromorphone 0.5 Mg Inj) 0.5 mg IV NOW ONE Stop: 05/27/23 01:06 Last Admin: 05/27/23 01:13 Dose: 0.5 mg Documented By: RAFAEL Sodium Chloride (Normal Saline 0.9%) 1,000 mls @ 1,000 mls/hr IV BOLUS ONE Stop: 05/27/23 02:04 Last Admin: 05/27/23 01:13 Dose: 1,000 mls/hr Documented By: RAFAEL Ondansetron HCl (Ondansetron 4 Mg/2 Ml Inj) 4 mg IV NOW ONE Stop: 05/27/23 01:06 Last Admin: 05/27/23 01:14 Dose: 4 mg Documented By: RAFAEL Ondansetron HCl (Ondansetron 4 Mg Odt Prepack) 1 bottle MISC SEEINSTR ONE Stop: 05/27/23 03:27 Last Admin: 05/27/23 03:38 Dose: 1 bottle Vital Signs Vital signs: Vital Signs - 8 hr 05/27/23 00:32 Temperature 98.3 F Pulse Rate 69 Respiratory Rate 17 Blood Pressure 126/82 Pulse Oximetry 99 Oxygen Delivery Method Room Air MDM - Abdominal Pain Lab Data 05/27/23 00:55 05/27/23 00:55 Labs: Lab Results 05/27/23 05/27/23 05/27/23 Range/Units 00:55 00:55 00:55 WBC 12.4 H (4.5-11.0) X10^3/uL RBC 4.60 (4.0-5.2) X10^6/uL Hgb 13.7 (12.0-16.0) g/dL Hct 40.5 (36-46) % MCV 88.1 (80-100) fL MCH 29.7 (26-34) PG MCHC 33.7 (30-36) % RDW 14.2 (11.6-14.8) % Plt Count 382 (150-400) X10^3/uL Neut % (Auto) 59.5 (50-75) % Lymph % (Auto) 30.0 (25-40) % [place] % (Auto) 6.8 (3-14) % Eos % (Auto) 3.1 (2-4) % Baso % (Auto) 0.6 (0-2) % Neut # (Auto) 7400 H (6903-3402) /uL Lymph # (Auto) 3700 (3314-6303) /uL [place] # (Auto) 800 (0-900) /uL Eos # (Auto) 400 (0-450) /uL Baso # (Auto) 100 (0-100) /uL Sodium 134 L (137-145) mmol/L Potassium 4.0 (3.4-5.1) mmol/L Chloride 101 (98-107) mmol/L Carbon Dioxide 27 (22-32) mmol/L BUN 12 (7-17) mg/dL Creatinine 0.72 (0.52-1.04) mg/dL Estimated GFR > 60 (>60) mL/min BUN/Creatinine Ratio 16.7 (6-22) Glucose 89 (70-100) mg/dL Calcium 8.8 (8.4-10.2) mg/dL Total Bilirubin 0.5 (0.2-1.3) mg/dL AST 28 (14-36) IU/L ALT 16 (<35) IU/L Alkaline Phosphatase 89 (38-126) U/L Total Creatine Kinase 48 (30-135) U/L Troponin I < 0.012 (0.01-0.034) ng/mL Total Protein 7.1 (6.3-8.2) g/dL Albumin 4.3 (3.5-5.0) g/dL Globulin 2.8 (1.7-4.1) g/dL Albumin/Globulin Ratio 1.5 (1.0-2.8) Lipase 607 H (23-300) U/L Point of care testing: Point of Care Testing Test Results Negative Urine Dip Bedside Urine Glucose Negative Bedside Urine Bilirubin - Negative Bedside Urine Ketone - Negative Urine Specific [place] 1.015 Bedside Urine Occult Blood - Negative Bedside Urine pH 6.5 Bedside Urine Protein - Negative Bedside Urine Urobilinogen - Negative Bedside Urine Nitrite - Negative Bedside Urine Leukocytes - Negative Esterase MDM Narrative Medical decision making narrative: CC: 18-year-old female with left-sided abdominal pain Complicating co-morbidities: History of endometriosis Data collected from: Patient Medical records reviewed: Prior notes reviewed in our EMR Differential considered, but not limited to: Kidney stone versus pyelonephritis versus pancreatitis versus bowel obstruction versus other Exam documented above, pertinent findings include: Left upper quadrant and left CVA tenderness heart rate regular, lungs clear Lab Test results independently reviewed as above. Pertinent findings: Urine without signs of infection, negative, Lipase 607. Imaging studies independently reviewed: CT abd/pelvis septated L ovarian cyst, mild fluid distention of terminal ileum. US confirms cyst, no torsion Treatments: FLuids, pain control, antiemetics Re-evaluations: Pain controlled, no vomiting, tolerating orals Discussion: Patient with upper abdominal pain with radiation to her back and left lower quadrant pain and multiple diagnoses considered as noted above. She is not septic, labs are reassuring with the exception of a slightly elevated lipase which explains her epigastric pain and radiation to the back. Thankfully imaging does not demonstrate any necrotizing pancreatitis, pseudocyst or other abnormality. She does not drink and has no evidence of gallbladder disease and therefore etiologies unclear at this time. Left lower quadrant pain likely rel ates to the ovarian cyst, no evidence of kidney stone, UTI or other. Patient is appropriate for discharge given lack of septic findings, pain is now controlled, she is tolerating orals. She is given return precautions and had questions answered to her apparent satisfaction Disposition: see below, along with detailed discharge instructions that have been reviewed with patient as well as indications for ED re-evaluation and additional outpatient follow up Discharge Plan Departure Patient Disposition: Home Clinical Impression: Acute pancreatitis, Ovarian cyst Instructions: DI for Pancreatitis Activity Restrictions/Additional Instructions: *You have been diagnosed with [abdominal pain due to both pancreatitis and a left-sided ovarian cyst] * As we discussed your history and physical exam as well as labs and imaging are very reassuring. There is no evidence of any severe diagnoses that would require a specific or immediate intervention. *What to do: *Please continue to take your regular medications as directed. [x ] New medication prescriptions sent to your pharmacy: [[facility] in [place]] *Please follow up with your primary care provider in 2-3 days, call for an appointment. Let them know you were seen in the Emergency Department and that we ask that you be seen in follow up. We will electronically transmit a record of today's note if your PCP is in our system *Please consider a clear liquid diet for the next 24-48 hours and then slowly advance to regular as tolerated. Also, try to avoid alcohol, nicotine, caffeine, spicy, acidic or fatty foods as this may worsen your symptoms *If you do not have a primary care provider please contact the [facility] Resource line at [phone]. They will ask some questions about your medical h istory and help get you set up with a doctor in the community. *Return to Emergency Department if you should have any new, worsening or concerning symptoms, such as [fever greater than 101 F, shaking chills, worsening pain, persistent vomiting or other bothersome symptoms] You have been prescribed a short course of narcotic medications. These are potentially dangerous and addictive medications that should be used carefully. While on these medications you cannot drive or operate heavy machinery. Additionally, you cannot sign legal documents or perform any duties such as this. Many people get constipated on narcotic medications so it would be advisable to discuss stool softeners with the pharmacist when you picker your prescription. Please understand that we cannot provide further refills of narcotics or controlled substances through the ED and your pain management will need to be through your Primary Care Provider Prescriptions: New hydrocodone-acetaminophen 5-325 mg tablet 1 tab PO Q4-6H PRN (Reason: pain) Qty: 20 0RF ketorolac 10 mg tablet 10 mg PO Q6H PRN (Reason: pain) Qty: 14 0RF ondansetron 4 mg tablet,disintegrating 4 mg PO TID-QID PRN (Reason: nausea and vomiting) Qty: 10 0RF No Action codeine-guaifenesin 10-100 mg/5 mL liquid 10 ml PO Q4-6H PRN (Reason: cough) Qty: 473 1RF benzonatate 200 mg capsule 200 mg PO TID PRN (Reason: cough) Qty: 30 0RF Referrals: Ana Rosa Guy ARNP [Primary Care Provider] - Stand Alone Forms: Patient Portal/API, Work Release Note
--- NOTE | 2023-05-27 01:06 | DI.CT.S_ITS ---
PROCEDURE: CT ABDOMEN PELVIS W CON INDICATIONS: severe abdominal pain left side TECHNIQUE: After the administration of IV contrast, axial sections were acquired from the lung bases to the pubic symphysis. Coronal and sagittal reformats were performed. For radiation dose reduction, the following was used: automated exposure control, adjustment of mA and/or kV according to patient size. COMPARISON: [facility], CT, CT ABDOMEN PELVIS W CON, 09/10/2022, 3:28. FINDINGS: Image quality: Excellent. Lung bases: Unremarkable. Heart: Heart is normal in size. ABDOMEN: Liver: No mass lesion. Gallbladder: Within normal limits without calcified gallstones. Biliary ducts: No biliary ductal dilatation. Pancreas: Unremarkable. Spleen: Normal in size. Adrenal Glands: No adrenal nodules. Kidneys and Ureters: No hydronephrosis. Stomach and Bowel: Stomach, small bowel loops, and colon are normal in caliber and wall thickness. There is mild fluid distention of the terminal ileum without associated wall thickening or inflammatory changes. The appendix is normal. Peritoneum: There is a small amount of intraperitoneal free fluid which appears within physiologic limits. No free air. Ventral Wall: No hernia. Abdominal Nodes: No retroperitoneal or mesenteric adenopathy by size criteria. Vessels: Aorta and inferior vena cava are normal in size. PELVIS: Pelvic Organs: There is a septated left adnexal cyst or 2 adjacent cysts measuring up to 4.1 x 3.8 cm in aggregate dimension with associated mild wall enhancement. Bladder: Unremarkable. Pelvic Nodes: No enlarged lymph nodes. Miscellaneous: No inguinal hernias are seen. Bones: Visualized osseous structures demonstrate no suspicious focal lesions. IMPRESSION: 1. Septated cyst or 2 adjacent left ovarian cysts with mild wall enhancement. The findings are nonspecific and further evaluation may be obtained with ultrasound including to evaluate for possible torsion. 2. Mild fluid distention of the terminal ileum without associated wall thickening or inflammatory changes. The findings are nonspecific and may reflect stasis. Dictated by: Abhishek Manning M.D. on 05/27/2023 at 2:00 Approved by: Abhishek Manning M.D. on 05/27/2023 at 2:05
[2023-05-27 01:13] LABS: Alanine Aminotransferase 16 IU/L (<35); Albumin 4.3 g/dL (3.5-5.0); Albumin Globulin Ratio 1.5 (1.0-2.8); Alkaline Phosphatase 89 U/L (38-126); Aspartate Aminotransferase 28 IU/L (14-36); BUN Creatinine Ratio 16.7 (6-22); Bilirubin Total 0.5 mg/dL (0.2-1.3); Blood Urea Nitrogen 12 mg/dL (7-17); Calcium 8.8 mg/dL (8.4-10.2); Carbon Dioxide 27 mmol/L (22-32); Chloride 101 mmol/L (98-107); Estimated Glomerular Filt Rate > 60 mL/min (>60); Globulin 2.8 g/dL (1.7-4.1); Glucose 89 mg/dL (70-100); HEMOLYSIS < 15 (0-50); Lipase 607 U/L (23-300); Sodium 134 mmol/L (137-145); Total Protein 7.1 g/dL (6.3-8.2)
[2023-05-27] MEDS: HYDROMORPHONE 0.5 MG INJ IV (01:13)
[2023-05-27] MEDS: SODIUM CHLORIDE 0.9% 1,000 ML 1000 ML IV (01:13)
[2023-05-27] MEDS: ONDANSETRON 4 MG/2 ML INJ IV (01:14)
[2023-05-27 01:33] LABS: Creatine Kinase 48 U/L (30-135)
[2023-05-27 01:46] LABS: Troponin I < 0.012 ng/mL (0.01-0.034)
--- NOTE | 2023-05-27 02:10 | DI.US.S_ITS ---
PROCEDURE: US PELVIC COMPLETE INDICATIONS: PAIN; ABNORMAL LEFT OVARY ON CT TECHNIQUE: Real-time scanning was performed of the pelvic organs, with image documentation. Additional endovaginal scanning was necessary due to incomplete visualization of the adnexal and endometrial structures by transabdominal scanning. COMPARISON: [facility], CT, CT ABDOMEN PELVIS W CON, 05/27/2023, 1:18. [facility], US, US PELVIC COMPLETE, 01/30/2023, 6:22. FINDINGS: Uterus: Uterus is anteverted and normal in size at 6.8 x 3.4 x 4.7 cm. The myometrium is homogeneous. The endometrium measures 13.7 mm combined thickness. Ovaries: The right ovary measures 1.8 x 3.1 x 1.9 cm, with a calculated ovarian volume of 5.8 cc. The left ovary measures 3.7 x 3.4 x 3.8 cm, with a calculated ovarian volume of 25.1 cc. There are 3 adjacent and abutting simple cysts in the left ovary with the largest measuring 2.2 x 1.1 x 3.0 cm. Less than 12 follicles can be seen in each ovary. No adnexal masses are seen. Other: No pathologic free abdominal or pelvic fluid. IMPRESSION: 1. There are 3 adjacent and abutting simple cysts versus follicles within the left ovary with the largest measuring 3.0 cm. There is normal color and arterial spectral Doppler waveform within the left ovary. 2. The right ovary is within normal limits. We strive to produce accurate, complete, and clear reports of imaging services. To assist us in improving patient care, this report was composed using standard report templates and voice recognition software. Therefore, it may contain abnormal punctuation, insertions and/or omissions. Occasional wrong-word or sound-alike substitutions may occur. Though we review the report and make efforts to correct it, we do recommend that the report be read carefully in proper context to recognize any text inaccuracies. Dictated by: Abhishek Etienne M.D. on 05/27/2023 at 8:12 Approved by: Abhishek Etienne M.D. on 05/27/2023 at 8:18
[2023-05-27] MEDS: HYDROCODONE/ACET 5/325 PREPACK 1 BOTTLE MISC (03:38)
[2023-05-27] MEDS: ONDANSETRON 4 MG ODT PREPACK 1 BOTTLE MISC (03:38)
== END 2023-05-27 03:46 | disposition home or self-care (01) ==
PROVIDERS: Emergency Provider Emergency Medicine; PCP Nurse Practitioner Family
DX: K85.90 Acute pancreatitis without necrosis or infection, unspecified (principal); N83.202 Unspecified ovarian cyst, left side
CPT/HCPCS: 36415; 74177; 76830; 76856; 80053; 81003; 81025; 82550; 83690; 84484; 85025; 93976; 96361; 96374; 96375; 99284; J1170; J2405; Q9967

== ENCOUNTER 2023-05-28 21:36 | Inpatient (IN) | payer OTHER, SELFPAY ==
[2023-05-28 21:38] VITALS: BP 115/55; PULSE 62; RESP 18; TEMP 36.9; O2SAT 99; BMI 27.3
[2023-05-28] MEDS: ONDANSETRON 4 MG/2 ML INJ IV (22:22)
[2023-05-28 22:29] LABS: Alanine Aminotransferase 14 IU/L (<35); Albumin 3.9 g/dL (3.5-5.0); Albumin Globulin Ratio 1.4 (1.0-2.8); Alkaline Phosphatase 70 U/L (38-126); Aspartate Aminotransferase 21 IU/L (14-36); BUN Creatinine Ratio 14.5 (6-22); Bilirubin Total 0.4 mg/dL (0.2-1.3); Blood Urea Nitrogen 11 mg/dL (7-17); Calcium 8.3 mg/dL (8.4-10.2); Carbon Dioxide 31 mmol/L (22-32); Chloride 100 mmol/L (98-107); Estimated Glomerular Filt Rate > 60 mL/min (>60); Globulin 2.7 g/dL (1.7-4.1); Glucose 121 mg/dL (70-100); HEMOLYSIS < 15 (0-50); Lipase 1556 U/L (23-300); Potassium 3.7 mmol/L (3.4-5.1); Sodium 133 mmol/L (137-145); Total Protein 6.6 g/dL (6.3-8.2)
[2023-05-28 22:34] LABS: Add Manual Diff / Slide Review NO; Basophils Absolute Auto 0 /uL (0-100); Basophils Percent Auto 0.4 % (0-2); Eosinophils Absolute Auto 200 /uL (0-450); Eosinophils Percent Auto 1.7 % (2-4); Hematocrit 39.2 % (36-46); Hemoglobin 13.3 g/dL (12.0-16.0); Lymphocytes Absolute Auto 2000 /uL (1100-4500); Lymphocytes Percent Auto 18.8 % (25-40); Mean Corpuscular HGB Conc 33.8 % (30-36); Mean Corpuscular Hemoglobin 29.6 PG (26-34); Mean Corpuscular Volume 87.5 fL (80-100); Monocytes Absolute Auto 500 /uL (0-900); Monocytes Percent Auto 5.2 % (3-14); Neutrophils Absolute Auto 7700 /uL (1500-7000); Neutrophils Percent Auto 73.9 % (50-75); Platelet Count 316 X10^3/uL (150-400); Red Blood Cell Count 4.48 X10^6/uL (4.0-5.2); Red Cell Distribution Width 14.2 % (11.6-14.8); White Blood Cell Count 10.4 X10^3/uL (4.5-11.0)
[2023-05-29] VITALS (21 sets, daily range): BP systolic 91–120; BP diastolic 38–68; PULSE 45–79; RESP 17–20; TEMP 35.7–36.7; O2SAT 97–100; BMI 28.3
--- NOTE | 2023-05-29 01:36 | ED_ITS ---
HPI - Abdominal Pain General Chief Complaint: Abdominal Pain Stated Complaint: abd pain, NV Time Seen by Provider: 05/29/23 01:36 Source: patient Mode of arrival: Ambulatory History of Present Illness HPI narrative: Patient is a 18-year-old female history of endometriosis rhabdomyolysis presenting today with increasing abdominal pain nausea and vomiting. She was seen evaluated here May [address] pelvic ultrasound and blood work at that time for left upper and left lower quadrant pain. She was found to have mild elevation of lipase at 600 without evidence of gallbladder disease. Today she reports more vomiting and pain feeling worse than she did previously. She was discharged home with pain meds nausea meds but they do not seem to be working. Related Data Previous Rx's Medication Instructions Recorded codeine 10 mg-guaifenesin 100 mg/5 10 ml PO Q4-6H PRN cough #473 mL 03/16/23 mL oral liquid benzonatate 200 mg capsule 200 mg PO TID PRN cough #30 caps 03/18/23 hydrocodone 5 mg-acetaminophen 325 1 tab PO Q4-6H PRN pain #20 tabs 05/27/23 mg tablet ketorolac 10 mg tablet 10 mg PO Q6H PRN pain #14 tabs 05/27/23 ondansetron 4 mg disintegrating 4 mg PO TID-QID PRN nausea and 05/27/23 tablet vomiting #10 tabs Allergies Allergy/AdvReac Type Severity Reaction Status Date / Time lactose Allergy Intermediate Hives/Nause Verified 05/27/23 00:32 a Opioids - Morphine Analogues Allergy Intermediate rash Verified 05/27/23 00:32 doxycycline AdvReac Intermediate vomitt Verified 05/27/23 00:32 amoxicillin AdvReac Vomiting Verified 05/27/23 00:32 Review of Systems Review of Systems ROS Unobtainable: All systems reviewed & are unremarkable except as noted in HPI and below Patient History Medical History Acne (~2015) Chlamydia infection (~2020) Endometriosis (~2020) Heavy menstrual period (~2018) Irregular menstrual cycle (~2020) Ovarian cyst Painful menstrual periods (~2020) Surgical History Anesthesia Hx of laparoscopy (07/11/22) Lymphangioma S/P ACL reconstruction (~09/11/21) TOA (tubo-ovarian abscess) (~10/01/21) Social History household members: friend(s) Smoking Status: Never smoker alcohol intake: current Smoking Status: Never smoker tobacco type: vaping alcohol intake frequency: holidays/special occasions only Alcohol type: wine Substance Use Type: does not use Exam Initial Vital Signs Initial Vital Signs: Vital Signs Temperature 98.5 F 05/28/23 21:38 Pulse Rate 62 05/28/23 21:38 Respiratory Rate 18 05/28/23 21:38 Blood Pressure 115/55 L 05/28/23 21:38 Pulse Oximetry 99 05/28/23 21:38 Oxygen Delivery Method Room Air 05/28/23 21:38 GENERAL: Alert pleasant well-appearing 18-year-old female and in [no acute] distress. HEENT: Head atraumatic,EOMI, pupils reactive, face symmetric, [moist] mucous membranes CARDIOVASCULAR: Regular rate and rhythm without murmurs, rubs or gallops. RESPIRATORY: Breath sounds equal bilaterally, no wheezes rales or rhonchi. ABDOMEN: Soft, tender periumbilical region slightly more to the left than the right however see does have a positive Rushing's sign no guarding no rebound no distention EXTREMITIES: Normal range of motion, no clubbing or edema. Neurovascularly intact NEUROLOGICAL: Alert and oriented x4. SKIN: Warm, dry, no laceration, no petechiae, no rashes or lesions. Course Orders Ordered: ED Orders 05/28/23 22:07 Complete Blood Count AUTO DIFF Stat Comprehensive Metabolic Panel Stat Lipase Stat 05/29/23 01:43 US abdomen limited Stat Enoxaparin Sodium (Enoxaparin 40 Mg/0.4 Ml Syringe) 40 mg SUBCUT DAILY SAQIB Hydromorphone HCl (Hydromorphone 0.5 Mg Inj) 0.5 mg IV Q2H PRN PRN Reason: Pain, Severe (7-10) Sodium Chloride (Normal Saline 0.45%) 1,000 mls @ 200 mls/hr IV CONT SAQIB Naloxone HCl (Naloxone 0.4 Mg/Ml Vial) 0.2 mg IV Q2MIN PRN PRN Reason: Opiate Reversal Ondansetron HCl (Ondansetron 4 Mg/2 Ml Inj) 4 mg IV NOW PRN PRN Reason: Nausea And Vomiting Last Admin: 05/28/23 22:22 Dose: 4 mg Documented By: AVINASH Discontinued Medications Hydromorphone HCl (Hydromorphone 0.5 Mg Inj) 0.5 mg IV NOW ONE Stop: 05/29/23 02:36 Last Admin: 05/29/23 02:42 Dose: 0.5 mg Documented By: JAMES Sodium Chloride (Normal Saline 0.9%) 1,000 mls @ 1,000 mls/hr IV BOLUS ONE Stop: 05/29/23 02:42 Last Infusion: 05/29/23 02:38 Dose: 0 mls/hr Documented By: Admin: 05/29/23 01:55 Dose: 1,000 mls/hr Documented By: JAMES Sodium Chloride (Normal Saline 0.9%) 1,000 mls @ 1,000 mls/hr IV BOLUS ONE Stop: 05/29/23 03:34 Last Infusion: 05/29/23 04:10 Dose: 0 mls/hr Documented By: Admin: 05/29/23 02:41 Dose: 1,000 mls/hr Documented By: JAMES Ketorolac Tromethamine (Ketorolac 30 Mg/Ml Vial) 15 mg IV NOW ONE Stop: 05/29/23 01:44 Last Admin: 05/29/23 01:55 Dose: 15 mg Documented By: JAMES Vital Signs Vital signs: Vital Signs - 8 hr 05/28/23 21:38 05/29/23 01:13 05/29/23 01:13 Temperature 98.5 F Pulse Rate 62 54 L Respiratory Rate 18 Blood Pressure 115/55 L 120/56 L Pulse Oximetry 99 99 Oxygen Delivery Method Room Air Room Air 05/29/23 01:30 05/29/23 01:31 05/29/23 01:31 Temperature Pulse Rate 51 L 49 L Respiratory Rate Blood Pressure 91/46 L Pulse Oximetry 98 98 Oxygen Delivery Method 05/29/23 01:34 05/29/23 01:34 05/29/23 02:00 Temperature Pulse Rate 53 L Respiratory Rate Blood Pressure 102/53 L 93/52 L Pulse Oximetry 99 Oxygen Delivery Method 05/29/23 02:00 05/29/23 02:30 05/29/23 02:30 Temperature Pulse Rate 47 L 66 Respiratory Rate Blood Pressure 91/49 L Pulse Oximetry 99 100 Oxygen Delivery Method 05/29/23 02:37 05/29/23 02:37 05/29/23 03:00 Temperature Pulse Rate 60 Respiratory Rate Blood Pressure 101/54 L 103/54 L Pulse Oximetry 100 Oxygen Delivery Method 05/29/23 03:00 05/29/23 03:37 05/29/23 03:37 Temperature Pulse Rate 58 L 79 Respiratory Rate Blood Pressure 114/58 L Pulse Oximetry 100 98 Oxygen Delivery Method 05/29/23 04:00 05/29/23 04:00 Temperature Pulse Rate 60 Respiratory Rate 18 Blood Pressure 107/59 L Pulse Oximetry 97 Oxygen Delivery Method MDM - Abdominal Pain Lab Data 05/28/23 22:07 05/28/23 22:07 Labs: Lab Results 05/28/23 05/28/23 Range/Units 22:07 22:07 WBC 10.4 (4.5-11.0) X10^3/uL RBC 4.48 (4.0-5.2) X10^6/uL Hgb 13.3 (12.0-16.0) g/dL Hct 39.2 (36-46) % MCV 87.5 (80-100) fL MCH 29.6 (26-34) PG MCHC 33.8 (30-36) % RDW 14.2 (11.6-14.8) % Plt Count 316 (150-400) X10^3/uL Neut % (Auto) 73.9 (50-75) % Lymph % (Auto) 18.8 L (25-40) % [place] % (Auto) 5.2 (3-14) % Eos % (Auto) 1.7 L (2-4) % Baso % (Auto) 0.4 (0-2) % Neut # (Auto) 7700 H (8929-0191) /uL Lymph # (Auto) 2000 (3540-1387) /uL [place] # (Auto) 500 (0-900) /uL Eos # (Auto) 200 (0-450) /uL Baso # (Auto) 0 (0-100) /uL Sodium 133 L (137-145) mmol/L Potassium 3.7 (3.4-5.1) mmol/L Chloride 100 (98-107) mmol/L Carbon Dioxide 31 (22-32) mmol/L BUN 11 (7-17) mg/dL Creatinine 0.76 (0.52-1.04) mg/dL Estimated GFR > 60 (>60) mL/min BUN/Creatinine Ratio 14.5 (6-22) Glucose 121 H (70-100) mg/dL Calcium 8.3 L (8.4-10.2) mg/dL Total Bilirubin 0.4 (0.2-1.3) mg/dL AST 21 (14-36) IU/L ALT 14 (<35) IU/L Alkaline Phosphatase 70 (38-126) U/L Total Protein 6.6 (6.3-8.2) g/dL Albumin 3.9 (3.5-5.0) g/dL Globulin 2.7 (1.7-4.1) g/dL Albumin/Globulin Ratio 1.4 (1.0-2.8) Lipase 1556 H D (23-300) U/L Point of care testing: Point of Care Testing Test Results Negative Urine Dip Bedside Urine Glucose Negative Bedside Urine Bilirubin - Negative Bedside Urine Ketone +/- 5 Urine Specific [place] 1.025 Bedside Urine Occult Blood - Negative Bedside Urine pH 6 Bedside Urine Protein - Negative Bedside Urine Urobilinogen - Negative Bedside Urine Nitrite - Negative Bedside Urine Leukocytes - Negative Esterase Imaging Data US - abdomen: Radiologist's Impression: Preliminary report: Normal right upper quadrant ultrasound MDM Narrative Medical decision making narrative: Patient reports with increasing abdominal pain nausea vomiting despite pain medication and nausea medication at home. She is found to have pancreatitis with elevated lipase of 15 50 higher than previously at 6. No leukocytosis she is afebrile elevated bilirubin or enzymes however right upper quadrant ultrasound was done it was not done previously and is negative. No cause of her pancreatitis at this time. She denies any alcohol he is no cholelithiasis no recent travel. She has failed outpatient treatment despite having pain medication and nausea medication at home. She will need admission for I he fluids and pain management Hospitalist updated and does test results and accepts patient Discharge Plan Departure Patient Disposition: Admitted as Observation Clinical Impression: Acute pancreatitis Admit Date/Time: 05/29/23 04:48 Admit Provider: Ginna Galeas
--- NOTE | 2023-05-29 01:43 | DI.US.S_ITS ---
PROCEDURE: US ABDOMEN LIMITED INDICATIONS: RUQ PAIN TECHNIQUE: Real-time focused scanning was performed of the abdomen, with image documentation. COMPARISON: [facility], CT, CT ABDOMEN PELVIS W CON, 05/27/2023, 1:18. [facility], US, US ABDOMEN LIMITED, 01/30/2023, 6:13. FINDINGS: The liver is normal in size at 13.9 cm and demonstrates normal echogenicity. The gallbladder appears normal without gallstones or gallbladder wall thickening. There is no pericholecystic fluid. Sonographic Rushing sign is negative. No intrahepatic or extrahepatic biliary ductal dilatation. Common bile duct measures 3.8 mm in diameter. The visualized portions of the pancreas are unremarkable. No free fluid is seen in the right upper quadrant. IMPRESSION: Normal gallbladder. A right upper quadrant ultrasound is within normal limits. There is no significant discrepancy when compared to the overnight preliminary report. Approved by: Onesimo Sin M.D. on 05/29/2023 at 8:10
[2023-05-29] MEDS: SODIUM CHLORIDE 0.9% 1,000 ML 1000 ML IV ×2 (01:55→02:41)
[2023-05-29] MEDS: KETOROLAC 30 MG/ML VIAL 15 MG IV (01:55)
[2023-05-29] MEDS: HYDROMORPHONE 0.5 MG INJ IV ×6 (02:42→21:21)
--- NOTE | 2023-05-29 04:44 | P.HP_ITS ---
History of Present Illness History of Present Illness Chief complaint: abd pain, NV Narrative: 18 y/o female with no signifcant pmhx presents with worsening abdominal pain. Seen in ER 05/27 and diagnosed with idiopathic pancreatitis. D/[place] with hydrocone and zofran. Now returns 05/29 with worsening nausea and LEFT sided constant abdominal pain, 05/29, shart. In ER Lipase elevated. CT abd not repeated since one was done 05/27. RUQ US normal Will be admitted for pancreatitis. 18 y female with pancreatitis No new medications. Denies billiary colic. Denies alcohol use. [facility] Medical History Acne (~2015) Chlamydia infection (~2020) Endometriosis (~2020) Heavy menstrual period (~2018) Irregular menstrual cycle (~2020) Ovarian cyst Painful menstrual periods (~2020) Surgical History Anesthesia Hx of laparoscopy (07/11/22) Lymphangioma S/P ACL reconstruction (~09/11/21) TOA (tubo-ovarian abscess) (~10/01/21) Social History household members: friend(s) Smoking Status: Never smoker alcohol intake: current Meds Home Medications and Allergies Home Medications Medication Instructions Recorded Confirmed Type codeine 10 mg-guaifenesin 100 mg/5 10 ml PO Q4-6H PRN cough #473 mL 03/16/23 Rx mL oral liquid benzonatate 200 mg capsule 200 mg PO TID PRN cough #30 caps 03/18/23 Rx hydrocodone 5 mg-acetaminophen 325 1 tab PO Q4-6H PRN pain #20 tabs 05/27/23 Rx mg tablet ketorolac 10 mg tablet 10 mg PO Q6H PRN pain #14 tabs 05/27/23 Rx ondansetron 4 mg disintegrating 4 mg PO TID-QID PRN nausea and 05/27/23 Rx tablet vomiting #10 tabs Allergies Allergy/AdvReac Type Severity Reaction Status Date / Time lactose Allergy Intermediate Hives/Nause Verified 05/27/23 00:32 a Opioids - Morphine Analogues Allergy Intermediate rash Verified 05/27/23 00:32 doxycycline AdvReac Intermediate vomitt Verified 05/27/23 00:32 amoxicillin AdvReac Vomiting Verified 05/27/23 00:32 Review of Systems Review of Systems Narrative: 14 point ROS negative Exam Vital Signs (past 8 hours): - 05/28/23 21:38 05/29/23 01:13 05/29/23 01:13 Temperature 98.5 F Pulse Rate 62 54 L Respiratory Rate 18 Blood Pressure 115/55 L 120/56 L Pulse Oximetry 99 99 Oxygen Delivery Method Room Air Room Air 05/29/23 01:30 05/29/23 01:31 05/29/23 01:31 Temperature Pulse Rate 51 L 49 L Respiratory Rate Blood Pressure 91/46 L Pulse Oximetry 98 98 Oxygen Delivery Method 05/29/23 01:34 05/29/23 01:34 05/29/23 02:00 Temperature Pulse Rate 53 L Respiratory Rate Blood Pressure 102/53 L 93/52 L Pulse Oximetry 99 Oxygen Delivery Method 05/29/23 02:00 05/29/23 02:30 05/29/23 02:30 Temperature Pulse Rate 47 L 66 Respiratory Rate Blood Pressure 91/49 L Pulse Oximetry 99 100 Oxygen Delivery Method 05/29/23 02:37 05/29/23 02:37 05/29/23 03:00 Temperature Pulse Rate 60 Respiratory Rate Blood Pressure 101/54 L 103/54 L Pulse Oximetry 100 Oxygen Delivery Method 05/29/23 03:00 05/29/23 03:37 05/29/23 03:37 Temperature Pulse Rate 58 L 79 Respiratory Rate Blood Pressure 114/58 L Pulse Oximetry 100 98 Oxygen Delivery Method 05/29/23 04:00 05/29/23 04:00 Temperature Pulse Rate 60 Respiratory Rate 18 Blood Pressure 107/59 L Pulse Oximetry 97 Oxygen Delivery Method Oxygen Delivery Method Room Air Narrative Exam Narrative: Gen alert + orientated CVS S1S2+ RS Clear Abd: Left sided tenderness without distension or rigidity Ext: WWP no edema Objective Labs 05/28/23 22:07 05/28/23 22:07 Labs: Laboratory Results - last 24 hr 05/28/23 05/28/23 22:07 22:07 WBC 10.4 RBC 4.48 Hgb 13.3 Hct 39.2 MCV 87.5 MCH 29.6 MCHC 33.8 RDW 14.2 Plt Count 316 Neut % (Auto) 73.9 Lymph % (Auto) 18.8 L [place] % (Auto) 5.2 Eos % (Auto) 1.7 L Baso % (Auto) 0.4 Neut # (Auto) 7700 H Lymph # (Auto) 2000 [place] # (Auto) 500 Eos # (Auto) 200 Baso # (Auto) 0 Sodium 133 L Potassium 3.7 Chloride 100 Carbon Dioxide 31 BUN 11 Creatinine 0.76 Estimated GFR > 60 BUN/Creatinine Ratio 14.5 Glucose 121 H Calcium 8.3 L Total Bilirubin 0.4 AST 21 ALT 14 Alkaline Phosphatase 70 Total Protein 6.6 Albumin 3.9 Globulin 2.7 Albumin/Globulin Ratio 1.4 Lipase 1556 H D Assessment & Plan Assessment & Plan narrative: ACUTE: * Acute idopathic pancreatitis. NPO. NS 200 mls per hour. Dilaudid IV prn pain. Zofran IV prn nausea. * Hypovolemic hyponatremia - mild. * Abdominal pain and nausea POA 2/2 # 1 CONSULTS NONE CODE FULL DIET NPO Time Spent With Patient Time with patient: 50 to 69 minutes with 50% spent counseling/coordinating care
[2023-05-29] MEDS: SODIUM CHLORIDE 0.45% 1,000 ML 200 ML IV ×4 (05:57→22:02)
[2023-05-29] MEDS: ONDANSETRON 4 MG/2 ML INJ IV ×3 (06:35→21:52)
--- NOTE | 2023-05-29 06:44 | PC.ADMIT ---
[email or web address] Christianne Gastelum Admission Note: The patient,Adeline Rosen,18 y/o, was given written information regarding hospital policies, unit procedures and contact persons. Patient's smoking status: Never smoker. Vital Signs - 8 hr 05/29/23 01:13 05/29/23 01:13 05/29/23 01:30 Temperature Pulse Rate 54 L 51 L Respiratory Rate Blood Pressure 120/56 L Pulse Oximetry 99 98 Oxygen Delivery Method Room Air Oxygen Flow Rate 05/29/23 01:31 05/29/23 01:31 05/29/23 01:34 Temperature Pulse Rate 49 L Respiratory Rate Blood Pressure 91/46 L 102/53 L Pulse Oximetry 98 Oxygen Delivery Method Oxygen Flow Rate 05/29/23 01:34 05/29/23 02:00 05/29/23 02:00 Temperature Pulse Rate 53 L 47 L Respiratory Rate Blood Pressure 93/52 L Pulse Oximetry 99 99 Oxygen Delivery Method Oxygen Flow Rate 05/29/23 02:30 05/29/23 02:30 05/29/23 02:37 Temperature Pulse Rate 66 Respiratory Rate Blood Pressure 91/49 L 101/54 L Pulse Oximetry 100 Oxygen Delivery Method Oxygen Flow Rate 05/29/23 02:37 05/29/23 03:00 05/29/23 03:00 Temperature Pulse Rate 60 58 L Respiratory Rate Blood Pressure 103/54 L Pulse Oximetry 100 100 Oxygen Delivery Method Oxygen Flow Rate 05/29/23 03:37 05/29/23 03:37 05/29/23 04:00 Temperature Pulse Rate 79 Respiratory Rate Blood Pressure 114/58 L 107/59 L Pulse Oximetry 98 Oxygen Delivery Method Oxygen Flow Rate 05/29/23 04:00 05/29/23 04:30 05/29/23 04:31 Temperature Pulse Rate 60 54 L 52 L Respiratory Rate 18 Blood Pressure Pulse Oximetry 97 97 97 Oxygen Delivery Method Room Air Room Air Oxygen Flow Rate 05/29/23 04:37 05/29/23 04:37 05/29/23 04:50 Temperature Pulse Rate 57 L 55 L Respiratory Rate Blood Pressure 106/54 L Pulse Oximetry 97 99 Oxygen Delivery Method Room Air Room Air Oxygen Flow Rate 05/29/23 05:00 05/29/23 05:31 05/29/23 05:40 Temperature 96.4 F L Pulse Rate 59 L Respiratory Rate 20 Blood Pressure 117/68 106/56 L 107/61 Pulse Oximetry 100 Oxygen Delivery Method Oxygen Flow Rate 0 Patient admitted to room 208 from ER per wheelchair with abdominal/back pain since Friday worsening yesterday along with some nausea. Is alert and oriented. Breath sounds CTA with RA sat of 100%. HRR but bradycardic with rate in upper 50's. Did complain of slight nausea (stated was given cranberry juice in ER) and was medicated with Zofran. Complained of 8/10 upper abdominal pain radiating down left side of abdomen; states it is tender but did not wince or flinch when palpated. Medicated with IV Dilaudid and pain decreased to 4/10 which she states is tolerable. Is independent with mobility and steady on feet. Declined both YURI stockings and SCD's and MD was informed and order received to DC. Fall risk score is low. Oriented to call light and bed controls. Dr. Galeas saw patient via Webex and patient verbalized understanding of treatment plan. Will be NPO but able to have ice chips.
[2023-05-29 08:36] LABS: Cholesterol 124 mg/dL (140-199); HDL Cholesterol 53 mg/dL (40-60); LDL Cholesterol Calculated 59 mg/dL (<100); Triglycerides 59 mg/dL (35-150)
[2023-05-29 08:45] LABS: Alanine Aminotransferase 14 IU/L (<35); Albumin 3.4 g/dL (3.5-5.0); Albumin Globulin Ratio 1.5 (1.0-2.8); Alkaline Phosphatase 72 U/L (38-126); Aspartate Aminotransferase 19 IU/L (14-36); BUN Creatinine Ratio 12.3 (6-22); Bilirubin Total 0.6 mg/dL (0.2-1.3); Blood Urea Nitrogen 8 mg/dL (7-17); Calcium 8.2 mg/dL (8.4-10.2); Carbon Dioxide 21 mmol/L (22-32); Chloride 107 mmol/L (98-107); Estimated Glomerular Filt Rate > 60 mL/min (>60); Globulin 2.2 g/dL (1.7-4.1); Glucose 74 mg/dL (70-100); HEMOLYSIS < 15 (0-50); Potassium 3.7 mmol/L (3.4-5.1); Sodium 135 mmol/L (137-145); Total Protein 5.6 g/dL (6.3-8.2)
[2023-05-29] MEDS: ENOXAPARIN 40 MG/0.4 ML SYRINGE SUBCUT (08:53)
[2023-05-29] MEDS: METOCLOPRAMIDE 10 MG/2 ML INJ 5 MG IV ×2 (08:53→18:34)
--- NOTE | 2023-05-29 11:50 | CM.DANOTE ---
DCP: Chart review for case, met with patient at bedside, they agree to case management assessment. Completed DCP assessment based on information available. Patient is a 18 year old admitted for pancreatitis. States she would like help finding a new local PCP due to challenges getting into the clinic at the [facility]. 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 PCP: Ana Rosa Guy seen last week at [facility] but now moving. Payer: [employer] DME: None DCP: Home with new Jessica Krishnamurthy RN, CM Discharge Planning/Care Management CM Discharge Assessment Start: 05/29/23 11:49 Freq: Status: Active Protocol: Document 05/29/23 11:49 BQ (Rec: 05/29/23 11:50 BQ [email or web address]) Discharge Planning Assessment Assigned Tableau Administrator Jessica Krishnamurthy RN, CM Advance Directives? No History Provided By Patient Has Patient been admitted in last 30 No days? Prior Living Arrangements House Household Members spouse Type of transporation used prior to Drives own vehicle admit Independent with ADL's Yes Is patient alert and oriented? Yes Caregiver for Another No Barriers to Discharge No Referrals Initiated None needed Whiteboard Updated in Patient Room with Yes name and ext. # of Tableau Administrator Review Status In Process Next Review Type Continued Stay Review
--- NOTE | 2023-05-29 12:31 | P.HP_ITS ---
History of Present Illness History of Present Illness Date Patient Seen: 05/29/23 Time Patient Seen: 12:32 Chief complaint: abd pain, NV Narrative: This is a 18 year old female with PMH of endometriosis, rhabdomyolysis after intense workout who presented with abdominal pain since 05/27. 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 Had CT and pelvic ultrasound which showed small ovarian simple cysts. Thought of mild pancreatitis given elevated lipase and was discharged home. She presented early this morning with worsening left upper quadrant abdominal pain, radiating to the back, with nausea and vomiting. She denied fever, chills, chest pain. No dysuria or urinary frequency. Abdominal ultrasound was unremarkable with no biliary disease. Lipid panel with normal TG this morning. She does not drink EtOH either. Patient admitted with idiopathic acute pancreatitis. [facility] Medical History Acne (~2015) Chlamydia infection (~2020) Endometriosis (~2020) Heavy menstrual period (~2018) Irregular menstrual cycle (~2020) Ovarian cyst Painful menstrual periods (~2020) Surgical History Anesthesia Hx of laparoscopy (07/11/22) Lymphangioma S/P ACL reconstruction (~09/11/21) TOA (tubo-ovarian abscess) (~10/01/21) Social History household members: spouse Smoking Status: Never smoker alcohol intake: never Meds Home Medications and Allergies Home Medications Medication Instructions Recorded Confirmed Type hydrocodone 5 mg-acetaminophen 325 1 tab PO Q4-6H PRN pain #20 tabs 05/27/23 05/29/23 Rx mg tablet ketorolac 10 mg tablet 10 mg PO Q6H PRN pain #14 tabs 05/27/23 05/29/23 Rx ondansetron 4 mg disintegrating 4 mg PO TID-QID PRN nausea and 05/27/23 05/29/23 Rx tablet vomiting #10 tabs Allergies Allergy/AdvReac Type Severity Reaction Status Date / Time lactose Allergy Intermediate Hives/Nause Verified 05/27/23 00:32 a Opioids - Morphine Analogues Allergy Intermediate rash Verified 05/27/23 00:32 doxycycline AdvReac Intermediate vomitt Verified 05/27/23 00:32 amoxicillin AdvReac Vomiting Verified 05/27/23 00:32 Review of Systems Review of Systems Narrative: All other systems reviewed with the patient and are negative unless otherwise stated. Exam Vital Signs (past 8 hours): - 05/29/23 04:37 05/29/23 04:37 05/29/23 04:50 Temperature Pulse Rate 57 L 55 L Respiratory Rate Blood Pressure 106/54 L Pulse Oximetry 97 99 Oxygen Delivery Method Room Air Room Air Oxygen Flow Rate 05/29/23 05:00 05/29/23 05:31 05/29/23 05:40 Temperature 96.4 F L Pulse Rate 59 L Respiratory Rate 20 Blood Pressure 117/68 106/56 L 107/61 Pulse Oximetry 100 Oxygen Delivery Method Oxygen Flow Rate 0 05/29/23 06:42 05/29/23 09:00 Temperature 97.7 F Pulse Rate 45 L Respiratory Rate 17 Blood Pressure 103/49 L Pulse Oximetry 98 Oxygen Delivery Method Room Air Oxygen Flow Rate 0 Oxygen Delivery Method Room Air Oxygen Flow Rate 0 Narrative Exam Narrative: General:? Patient is well developed and well nourished, in no distress at this time. HEENT:? Normocephalic, atraumatic, extraocular muscles intact, oral pharynx is clear and mucous membranes are moist. Neck: supple and symmetric, trachea is midline, no cervical adenopathy. Negative for JVD Chest:? Normal AP diameter and contour without kyphoscoliosis, no tachypnea, equal chest rise bilaterally. Lungs:? CTA b/l no wheezing rhonchi or rales. Cardio:?RRR no m/r/g. Abdomen: soft, non-distended, LUQ and epigastric tenderness. Musculoskeletal:? Muscle strength and tone are equal within normal limits, no deformity. Extremities: No edema or joint effusions. No cyanosis or clubbing. Skin:? Pale,? Warm to touch,dry and intact without rashes, ulcerations or petechiae.? Neuro:? Alert and orientated x3,? sensation to touch intact in all extremities, no gross deficits noted of cranial nerves. Psych:? Patient has a well-kept appearance, appropriate affect, mental status attitude thought context and judgment are appropriate for age. Objective Labs 05/28/23 22:07 05/29/23 08:05 Labs: Laboratory Results - last 24 hr 05/28/23 05/28/23 05/29/23 22:07 22:07 08:05 WBC 10.4 RBC 4.48 Hgb 13.3 Hct 39.2 MCV 87.5 MCH 29.6 MCHC 33.8 RDW 14.2 Plt Count 316 Neut % (Auto) 73.9 Lymph % (Auto) 18.8 L [place] % (Auto) 5.2 Eos % (Auto) 1.7 L Baso % (Auto) 0.4 Neut # (Auto) 7700 H Lymph # (Auto) 2000 [place] # (Auto) 500 Eos # (Auto) 200 Baso # (Auto) 0 Sodium 133 L Potassium 3.7 Chloride 100 Carbon Dioxide 31 BUN 11 Creatinine 0.76 Estimated GFR > 60 BUN/Creatinine Ratio 14.5 Glucose 121 H Calcium 8.3 L Total Bilirubin 0.4 AST 21 ALT 14 Alkaline Phosphatase 70 Total Protein 6.6 Albumin 3.9 Globulin 2.7 Albumin/Globulin Ratio 1.4 Triglycerides 59 Cholesterol LDL Cholesterol, Calc HDL Cholesterol Lipase 1556 H D 05/29/23 05/29/23 08:05 08:05 WBC RBC Hgb Hct MCV MCH MCHC RDW Plt Count Neut % (Auto) Lymph % (Auto) [place] % (Auto) Eos % (Auto) Baso % (Auto) Neut # (Auto) Lymph # (Auto) [place] # (Auto) Eos # (Auto) Baso # (Auto) Sodium 135 L Potassium 3.7 Chloride 107 Carbon Dioxide 21 L BUN 8 Creatinine 0.65 Estimated GFR > 60 BUN/Creatinine Ratio 12.3 Glucose 74 Calcium 8.2 L Total Bilirubin 0.6 AST 19 ALT 14 Alkaline Phosphatase 72 Total Protein 5.6 L Albumin 3.4 L Globulin 2.2 Albumin/Globulin Ratio 1.5 Triglycerides 59 Cholesterol 124 L LDL Cholesterol, Calc 59 HDL Cholesterol 53 Lipase Assessment & Plan Assessment & Plan narrative: 1. Acute idiopathic pancreatitis, present on admission - No biliary disease, no ETOH use, TG level normal. - okay to advance to clears for lunch today. - advance diet as tolerated, continue IV fluids today. - prn pain medications - if symptoms without improvement, consider discussion with GI for ERCP for further evaluation for possible biliary structural abnormalities. Code: FULL DVT: Lovenox daily Dispo: inpatient, discharge home when tolerating a diet with improved pain. Additional history obtained via bedside staff and overnight provider. I have reviewed patient's documentation, imaging, labs personally.
[2023-05-29] MEDS: PANTOPRAZOLE DR 20 MG TABLET PO (13:24)
[2023-05-29] MEDS: CALCIUM CARBONATE 500 MG TAB 1000 MG PO (15:42)
[2023-05-29] MEDS: SCOPOLAMINE 1 PATCH TOP (23:28)
[2023-05-29] MEDS: ZOLPIDEM 5 MG TABLET PO (23:29)
[2023-05-30] VITALS (7 sets, daily range): BP systolic 89–119; BP diastolic 31–52; PULSE 54–61; RESP 18; TEMP 36.3–37; O2SAT 98–99
[2023-05-30] MEDS: HYDROMORPHONE 0.5 MG INJ IV ×7 (01:03→23:05)
[2023-05-30] MEDS: METOCLOPRAMIDE 10 MG/2 ML INJ 5 MG IV ×3 (01:03→16:52)
[2023-05-30] MEDS: SODIUM CHLORIDE 0.45% 1,000 ML 200 ML IV ×2 (02:55→08:36)
[2023-05-30] MEDS: ONDANSETRON 4 MG/2 ML INJ IV ×4 (06:31→22:28)
[2023-05-30] MEDS: PANTOPRAZOLE DR 20 MG TABLET PO (06:31)
[2023-05-30 06:51] LABS: Add Manual Diff / Slide Review NO; Basophils Absolute Auto 0 /uL (0-100); Basophils Percent Auto 0.4 % (0-2); Eosinophils Absolute Auto 200 /uL (0-450); Eosinophils Percent Auto 1.7 % (2-4); Hematocrit 34.5 % (36-46); Lymphocytes Absolute Auto 2000 /uL (1100-4500); Lymphocytes Percent Auto 19.4 % (25-40); Mean Corpuscular HGB Conc 34.9 % (30-36); Mean Corpuscular Hemoglobin 30.8 PG (26-34); Mean Corpuscular Volume 88.2 fL (80-100); Monocytes Absolute Auto 1200 /uL (0-900); Monocytes Percent Auto 11.4 % (3-14); Neutrophils Absolute Auto 7100 /uL (1500-7000); Neutrophils Percent Auto 67.1 % (50-75); Platelet Count 245 X10^3/uL (150-400); Red Blood Cell Count 3.91 X10^6/uL (4.0-5.2); Red Cell Distribution Width 14.2 % (11.6-14.8); White Blood Cell Count 10.5 X10^3/uL (4.5-11.0)
[2023-05-30 06:53] LABS: Alanine Aminotransferase 13 IU/L (<35); Albumin 3.2 g/dL (3.5-5.0); Albumin Globulin Ratio 1.3 (1.0-2.8); Alkaline Phosphatase 64 U/L (38-126); Aspartate Aminotransferase 18 IU/L (14-36); BUN Creatinine Ratio 5.5 (6-22); Bilirubin Total 0.8 mg/dL (0.2-1.3); Blood Urea Nitrogen 4 mg/dL (7-17); Calcium 8.3 mg/dL (8.4-10.2); Carbon Dioxide 27 mmol/L (22-32); Chloride 102 mmol/L (98-107); Estimated Glomerular Filt Rate > 60 mL/min (>60); Globulin 2.4 g/dL (1.7-4.1); Glucose 81 mg/dL (70-100); HEMOLYSIS < 15 (0-50); Magnesium 1.5 mg/dL (1.6-2.3); Potassium 4.3 mmol/L (3.4-5.1); Sodium 133 mmol/L (137-145); Total Protein 5.6 g/dL (6.3-8.2)
[2023-05-30] MEDS: ENOXAPARIN 40 MG/0.4 ML SYRINGE SUBCUT (08:28)
[2023-05-30] MEDS: OXYCODONE IR 5 MG TABLET PO ×2 (09:57→16:53)
[2023-05-30] MEDS: CALCIUM CARBONATE 500 MG TAB 1000 MG PO (09:59)
[2023-05-30] MEDS: MAGNESIUM CHLORIDE 64 MG TABLET 128 MG PO (10:35)
--- NOTE | 2023-05-30 10:47 | P.PN_ITS ---
Subjective Subjective Interval history: Spring well overnight after clears, tried some adi crackers but then developed nausea and vomiting. Will remain on clears for now. Exam Vital Signs (past 8 hours): - 05/30/23 09:00 Temperature 97.6 F Pulse Rate 54 L Respiratory Rate 18 Blood Pressure 95/40 L Pulse Oximetry 99 Oxygen Flow Rate 0 Oxygen Delivery Method Room Air Oxygen Flow Rate 0 Narrative Exam Narrative: General:? Patient is well developed and well nourished, in no distress at this time. HEENT:? Normocephalic, atraumatic, extraocular muscles intact, oral pharynx is clear and mucous membranes are moist. Neck: supple and symmetric, trachea is midline, no cervical adenopathy. Negative for JVD Chest:? Normal AP diameter and contour without kyphoscoliosis, no tachypnea, equal chest rise bilaterally. Lungs:? CTA b/l no wheezing rhonchi or rales. Cardio:?RRR no m/r/g. Abdomen: soft, non-distended, LUQ and epigastric tenderness. Musculoskeletal:? Muscle strength and tone are equal within normal limits, no deformity. Extremities: No edema or joint effusions. No cyanosis or clubbing. Skin:? Pale,? Warm to touch,dry and intact without rashes, ulcerations or petechiae.? Neuro:? Alert and orientated x3,? sensation to touch intact in all extremities, no gross deficits noted of cranial nerves. Psych:? Patient has a well-kept appearance, appropriate affect, mental status attitude thought context and judgment are appropriate for age. Objective Labs 05/30/23 06:10 05/30/23 06:10 Labs: Laboratory Results - last 24 hr 05/30/23 05/30/23 06:10 06:10 WBC 10.5 RBC 3.91 L Hgb 12.0 Hct 34.5 L MCV 88.2 MCH 30.8 MCHC 34.9 RDW 14.2 Plt Count 245 Neut % (Auto) 67.1 Lymph % (Auto) 19.4 L [place] % (Auto) 11.4 Eos % (Auto) 1.7 L Baso % (Auto) 0.4 Neut # (Auto) 7100 H Lymph # (Auto) 2000 [place] # (Auto) 1200 H Eos # (Auto) 200 Baso # (Auto) 0 Sodium 133 L Potassium 4.3 Chloride 102 Carbon Dioxide 27 BUN 4 L Creatinine 0.73 Estimated GFR > 60 BUN/Creatinine Ratio 5.5 L Glucose 81 Calcium 8.3 L Magnesium 1.5 L Total Bilirubin 0.8 AST 18 ALT 13 Alkaline Phosphatase 64 Total Protein 5.6 L Albumin 3.2 L Globulin 2.4 Albumin/Globulin Ratio 1.3 [facility] Medical History Acne (~2015) Chlamydia infection (~2020) Endometriosis (~2020) Heavy menstrual period (~2018) Irregular menstrual cycle (~2020) Ovarian cyst Painful menstrual periods (~2020) Surgical History Anesthesia Hx of laparoscopy (07/11/22) Lymphangioma S/P ACL reconstruction (~09/11/21) TOA (tubo-ovarian abscess) (~10/01/21) Social History household members: spouse Smoking Status: Never smoker alcohol intake: never Assessment & Plan Assessment & Plan narrative: 1. Acute idiopathic pancreatitis, present on admission - No biliary disease, no ETOH use, TG level normal. - continue clears for now given nausea/vomiting - advance diet as tolerated, continue IV fluids today. - prn pain medications - if symptoms are continuing without improvement, consider discussion with GI for ERCP for further evaluation for possible biliary structural abnormalities or if MRCP would be performed first. - repeat lipase tomorrow to see if improvement. 2. OVarian cysts - patient with ovarian cysts on recent pelvic ultrasound, do not believe these to be contributing to current pain symptoms 3. History of endometriosis Code: FULL DVT: Lovenox daily Dispo: inpatient, discharge home when tolerating a diet with improved pain. Additional history obtained via bedside staff. I have reviewed patient's documentation, imaging, labs personally.
[2023-05-30] MEDS: SODIUM CHLORIDE 0.9% FLUSH 10 ML IV (22:28)
[2023-05-30] MEDS: SODIUM CHLORIDE 0.45% 1,000 ML 100 ML IV (22:43)
[2023-05-30] MEDS: ZOLPIDEM 5 MG TABLET PO (23:57)
--- NOTE | 2023-05-31 | DI.MRI.S_ITS ---
PROCEDURE: MR AB PANCREATIC/MRCP PROTOCOL INDICATIONS: pancreatitis for unknown reason TECHNIQUE: Coronal HASTE through the abdomen, axial 2-D FLASH in- and [id number], and breath-hold T2 FSE with fat saturation through the biliary system and pancreas. Oblique coronal and axial thin-slice HASTE, radial thick-slab HASTE centered on the extrahepatic bile ducts. Intravenous secretin: Not requested. COMPARISON: [facility], US, US ABDOMEN LIMITED, 05/29/2023, 2:08. [facility], CT, CT ABDOMEN PELVIS W CON, 05/27/2023, 1:18. FINDINGS: Image quality: Excellent. Pancreas and biliary system: Intra- and extra-hepatic biliary ducts are non dilated. Pancreas is normal in morphology, without adjacent soft tissue edema. Pancreatic duct is normal in caliber, without developmental anomalies. Gallbladder is unremarkable. Other solid organs: Liver is normal in size. Spleen is normal in size. No adrenal nodules. Both kidneys are normal in size, without hydronephrosis. Nodes and vessels: No retroperitoneal or mesenteric adenopathy by size criteria. Aorta and inferior vena cava are normal in size. Bowel and peritoneum: Unenhanced bowel loops are normal in caliber. No free fluid. Lung bases: No basal pleural effusions. Heart size is normal. Bones and soft tissues: No ventral hernias. Bone marrow is of normal overall signal. IMPRESSION: No cholelithiasis or choledocholithiasis. Normal MRCP. Dictated by: Jon Bautista M.D. on 05/31/2023 at 14:51 Approved by: Jon Bautista M.D. on 05/31/2023 at 14:57
[2023-05-31] MEDS: HYDROMORPHONE 0.5 MG INJ IV ×5 (02:11→21:31)
[2023-05-31 03:00] VITALS: BP 93/43; PULSE 58; RESP 16; TEMP 36.7; O2SAT 97
[2023-05-31] MEDS: ONDANSETRON 4 MG/2 ML INJ IV ×4 (04:24→21:31)
[2023-05-31] MEDS: OXYCODONE IR 5 MG TABLET PO ×2 (04:24→12:31)
[2023-05-31] MEDS: METOCLOPRAMIDE 10 MG/2 ML INJ 5 MG IV (06:10)
[2023-05-31 06:14] LABS: Add Manual Diff / Slide Review NO; Basophils Absolute Auto 0 /uL (0-100); Basophils Percent Auto 0.6 % (0-2); Eosinophils Absolute Auto 200 /uL (0-450); Eosinophils Percent Auto 3.3 % (2-4); Hematocrit 35.1 % (36-46); Lymphocytes Absolute Auto 1900 /uL (1100-4500); Lymphocytes Percent Auto 30.8 % (25-40); Mean Corpuscular HGB Conc 34.3 % (30-36); Mean Corpuscular Hemoglobin 29.9 PG (26-34); Mean Corpuscular Volume 87.2 fL (80-100); Monocytes Absolute Auto 900 /uL (0-900); Monocytes Percent Auto 14.2 % (3-14); Neutrophils Absolute Auto 3100 /uL (1500-7000); Neutrophils Percent Auto 51.1 % (50-75); Platelet Count 234 X10^3/uL (150-400); Red Blood Cell Count 4.03 X10^6/uL (4.0-5.2); Red Cell Distribution Width 14.1 % (11.6-14.8)
[2023-05-31 06:20] LABS: Alanine Aminotransferase 12 IU/L (<35); Albumin 3.3 g/dL (3.5-5.0); Albumin Globulin Ratio 1.3 (1.0-2.8); Alkaline Phosphatase 64 U/L (38-126); Aspartate Aminotransferase 17 IU/L (14-36); BUN Creatinine Ratio 4.8 (6-22); Bilirubin Total 0.7 mg/dL (0.2-1.3); Blood Urea Nitrogen 4 mg/dL (7-17); Calcium 8.3 mg/dL (8.4-10.2); Carbon Dioxide 27 mmol/L (22-32); Chloride 100 mmol/L (98-107); Estimated Glomerular Filt Rate > 60 mL/min (>60); Globulin 2.5 g/dL (1.7-4.1); Glucose 76 mg/dL (70-100); HEMOLYSIS < 15 (0-50); Magnesium 1.6 mg/dL (1.6-2.3); Potassium 3.7 mmol/L (3.4-5.1); Sodium 133 mmol/L (137-145); Total Protein 5.8 g/dL (6.3-8.2)
[2023-05-31] MEDS: PANTOPRAZOLE DR 20 MG TABLET PO (06:29)
[2023-05-31 06:33] LABS: Lipase 51 U/L (23-300)
[2023-05-31 07:00] VITALS: BP 98/39; PULSE 52; RESP 18; TEMP 36.4; O2SAT 98
[2023-05-31] MEDS: MAGNESIUM SULFATE 2 GM/50 ML PIGGYBACK IV (08:26)
[2023-05-31] MEDS: ENOXAPARIN 40 MG/0.4 ML SYRINGE SUBCUT (08:26)
[2023-05-31] MEDS: SODIUM CHLORIDE 0.9% FLUSH 10 ML IV (08:27)
[2023-05-31] MEDS: SODIUM CHLORIDE 0.45% 1,000 ML 100 ML IV ×2 (11:05→21:33)
[2023-05-31] MEDS: METOCLOPRAMIDE 10 MG/2 ML INJ IV ×2 (12:32→18:18)
--- NOTE | 2023-05-31 13:18 | P.PN_ITS ---
Subjective Subjective Interval history: Patient had nausea with vomiting all night. She is tolerating some frozen popsicle currently. She is interested in an MRCP to see if this can help determine the cause of her pancreatitis. Exam Vital Signs (past 8 hours): - 05/31/23 07:00 Temperature 97.5 F L Pulse Rate 52 L Respiratory Rate 18 Blood Pressure 98/39 L Pulse Oximetry 98 Oxygen Flow Rate 0 Oxygen Delivery Method Room Air Oxygen Flow Rate 0 Narrative Exam Narrative: General:? Patient is well developed and well nourished, in no distress at this time. HEENT:? Normocephalic, atraumatic, extraocular muscles intact, oral pharynx is clear and mucous membranes are moist. Neck: supple and symmetric, trachea is midline, no cervical adenopathy. Negative for JVD Chest:? Normal AP diameter and contour without kyphoscoliosis, no tachypnea, equal chest rise bilaterally. Lungs:? CTA b/l no wheezing rhonchi or rales. Cardio:?RRR no m/r/g. Abdomen: soft, non-distended, LUQ and epigastric tenderness. Musculoskeletal:? Muscle strength and tone are equal within normal limits, no deformity. Extremities: No edema or joint effusions. No cyanosis or clubbing. Skin:? Pale,? Warm to touch,dry and intact without rashes, ulcerations or petechiae.? Neuro:? Alert and orientated x3,? sensation to touch intact in all extremities, no gross deficits noted of cranial nerves. Psych:? Patient has a well-kept appearance, appropriate affect, mental status attitude thought context and judgment are appropriate for age. Objective Labs 05/31/23 05:28 05/31/23 05:28 Labs: Laboratory Results - last 24 hr 05/31/23 05/31/23 05/31/23 05:28 05:28 05:28 WBC 6.0 RBC 4.03 Hgb 12.0 Hct 35.1 L MCV 87.2 MCH 29.9 MCHC 34.3 RDW 14.1 Plt Count 234 Neut % (Auto) 51.1 Lymph % (Auto) 30.8 [place] % (Auto) 14.2 H Eos % (Auto) 3.3 Baso % (Auto) 0.6 Neut # (Auto) 3100 Lymph # (Auto) 1900 [place] # (Auto) 900 Eos # (Auto) 200 Baso # (Auto) 0 Sodium 133 L Potassium 3.7 Chloride 100 Carbon Dioxide 27 BUN 4 L Creatinine 0.84 Estimated GFR > 60 BUN/Creatinine Ratio 4.8 L Glucose 76 Calcium 8.3 L Magnesium 1.6 Total Bilirubin 0.7 AST 17 ALT 12 Alkaline Phosphatase 64 Total Protein 5.8 L Albumin 3.3 L Globulin 2.5 Albumin/Globulin Ratio 1.3 Lipase 51 D PFSH Medical History Acne (~2015) Chlamydia infection (~2020) Endometriosis (~2020) Heavy menstrual period (~2018) Irregular menstrual cycle (~2020) Ovarian cyst Painful menstrual periods (~2020) Surgical History Anesthesia Hx of laparoscopy (07/11/22) Lymphangioma S/P ACL reconstruction (~09/11/21) TOA (tubo-ovarian abscess) (~10/01/21) Social History household members: spouse Smoking Status: Never smoker alcohol intake: never Assessment & Plan Assessment & Plan narrative: 1. Acute idiopathic pancreatitis, present on admission - No biliary disease, no ETOH use, TG level normal. - continue clears for now given nausea/vomiting - advance diet as tolerated, still on clears - prn pain medications - had NV overnight so will obtain MRCP to look for any biliary pathology - repeat lipase now normal 2. Ovarian cysts - patient with ovarian cysts on recent pelvic ultrasound, do not believe these to be contributing to current pain symptoms 3. History of endometriosis Code: FULL DVT: Lovenox daily Dispo: inpatient, discharge home when tolerating a diet with improved pain. Likely 1-2 more days.
[2023-05-31] MEDS: LORazepam 0.5 MG TABLET PO (14:38)
[2023-05-31 15:00] VITALS: BP 95/46; PULSE 60; RESP 14; TEMP 36.8; O2SAT 100
[2023-05-31] MEDS: CALCIUM CARBONATE 500 MG TAB 1000 MG PO ×2 (17:10→21:31)
[2023-05-31 19:40] VITALS: BP 94/50; PULSE 68; RESP 16; TEMP 36.8; O2SAT 97
[2023-05-31] MEDS: ZOLPIDEM 5 MG TABLET PO (21:31)
[2023-06-01] MEDS: OXYCODONE IR 5 MG TABLET PO ×4 (01:24→23:11)
[2023-06-01] MEDS: METOCLOPRAMIDE 10 MG/2 ML INJ IV ×4 (01:29→23:11)
[2023-06-01 03:25] VITALS: BP 99/40; PULSE 56; RESP 17; TEMP 36.5; O2SAT 100
[2023-06-01] MEDS: ONDANSETRON 4 MG/2 ML INJ IV ×2 (03:33→19:58)
[2023-06-01] MEDS: HYDROMORPHONE 0.5 MG INJ IV ×4 (03:35→19:46)
[2023-06-01] MEDS: PANTOPRAZOLE 40 MG VIAL IV (06:15)
[2023-06-01 07:00] VITALS: BP 81/36; PULSE 60; RESP 18; TEMP 36.8; O2SAT 99
[2023-06-01 07:16] LABS: Add Manual Diff / Slide Review NO; Basophils Absolute Auto 100 /uL (0-100); Basophils Percent Auto 1.1 % (0-2); Eosinophils Absolute Auto 200 /uL (0-450); Eosinophils Percent Auto 2.8 % (2-4); Hematocrit 36.7 % (36-46); Hemoglobin 12.5 g/dL (12.0-16.0); Lymphocytes Absolute Auto 2000 /uL (1100-4500); Lymphocytes Percent Auto 34.9 % (25-40); Mean Corpuscular Volume 88.3 fL (80-100); Monocytes Absolute Auto 600 /uL (0-900); Monocytes Percent Auto 10.5 % (3-14); Neutrophils Absolute Auto 2900 /uL (1500-7000); Neutrophils Percent Auto 50.7 % (50-75); Platelet Count 251 X10^3/uL (150-400); Red Blood Cell Count 4.16 X10^6/uL (4.0-5.2); Red Cell Distribution Width 13.8 % (11.6-14.8); White Blood Cell Count 5.6 X10^3/uL (4.5-11.0)
[2023-06-01 07:26] LABS: Alanine Aminotransferase 14 IU/L (<35); Albumin 3.6 g/dL (3.5-5.0); Albumin Globulin Ratio 1.3 (1.0-2.8); Alkaline Phosphatase 68 U/L (38-126); Aspartate Aminotransferase 19 IU/L (14-36); BUN Creatinine Ratio 3.8 (6-22); Bilirubin Total 0.8 mg/dL (0.2-1.3); Blood Urea Nitrogen 3 mg/dL (7-17); Calcium 8.7 mg/dL (8.4-10.2); Carbon Dioxide 26 mmol/L (22-32); Chloride 101 mmol/L (98-107); Estimated Glomerular Filt Rate > 60 mL/min (>60); Globulin 2.7 g/dL (1.7-4.1); Glucose 91 mg/dL (70-100); HEMOLYSIS < 15 (0-50); Magnesium 1.7 mg/dL (1.6-2.3); Potassium 3.7 mmol/L (3.4-5.1); Sodium 133 mmol/L (137-145); Total Protein 6.3 g/dL (6.3-8.2)
[2023-06-01] MEDS: SODIUM CHLORIDE 0.45% 1,000 ML 100 ML IV (08:03)
[2023-06-01 08:10] LABS: HCG Quantitative /Beta subunit < 2.4 mIU/mL
--- NOTE | 2023-06-01 08:19 | PC.NURSE ---
Addendum entered by Lori Walter R.N. 06/01/23 12:24: Patient medicated with oxycodone earlier and helpful for discomfort. Blood pressure low, she had a liter bolus and this was helpful for discomfort temporarily. Since blood pressure up, just given dilaudid 1mg and more helpful with discomfort. Original Note: Patient is a sba to the bathroom as she was feeling weak and dizzy. Voided 600cc of yellow urine and back to bed. Blood pressure is running low at 83/39 with pulse in the 50s. Let Dr. Duong know and he ordered a NS bolus of 1L over an hour and then maintenance fluid at 125cc/hr. She is lying down and resting now.
[2023-06-01] MEDS: ENOXAPARIN 40 MG/0.4 ML SYRINGE SUBCUT (08:56)
[2023-06-01] MEDS: SODIUM CHLORIDE 0.9% 1,000 ML 1000 ML IV (08:57)
[2023-06-01] MEDS: SODIUM CHLORIDE 0.9% 1,000 ML 125 ML IV ×2 (09:30→17:21)
[2023-06-01 12:00] VITALS: BP 94/44; PULSE 57; RESP 18; TEMP 36.8; O2SAT 99
[2023-06-01 16:00] VITALS: BP 95/45; PULSE 50; RESP 18; TEMP 36.8; O2SAT 99
--- NOTE | 2023-06-01 16:47 | PM.PN.1 ---
Subjective Subjective Interval history: Patient not feeling much better. Had NV overnight. Spoke with GI who recommended autoimmune labs and continuing to wait and advance diet slowly. No indication for ERCP. Exam Vital Signs (past 8 hours): - 06/01/23 12:00 Temperature 98.3 F Pulse Rate 57 L Respiratory Rate 18 Blood Pressure 94/44 L Pulse Oximetry 99 Oxygen Flow Rate 0 Oxygen Delivery Method Room Air Oxygen Flow Rate 0 Narrative Exam Narrative: General:? Patient is well developed and well nourished, in no distress at this time. HEENT:? Normocephalic, atraumatic, extraocular muscles intact, oral pharynx is clear and mucous membranes are moist. Neck: supple and symmetric, trachea is midline, no cervical adenopathy. Negative for JVD Chest:? Normal AP diameter and contour without kyphoscoliosis, no tachypnea, equal chest rise bilaterally. Lungs:? CTA b/l no wheezing rhonchi or rales. Cardio:?RRR no m/r/g. Abdomen: soft, non-distended, LUQ and epigastric tenderness. Musculoskeletal:? Muscle strength and tone are equal within normal limits, no deformity. Extremities: No edema or joint effusions. No cyanosis or clubbing. Skin:? Pale,? Warm to touch,dry and intact without rashes, ulcerations or petechiae.? Neuro:? Alert and orientated x3,? sensation to touch intact in all extremities, no gross deficits noted of cranial nerves. Psych:? Patient has a well-kept appearance, appropriate affect, mental status attitude thought context and judgment are appropriate for age. Objective Labs 06/01/23 06:36 06/01/23 06:36 Labs: Laboratory Results - last 24 hr 06/01/23 06/01/23 06/01/23 06:30 06:36 06:36 WBC 5.6 RBC 4.16 Hgb 12.5 Hct 36.7 MCV 88.3 MCH 30.0 MCHC 34.0 RDW 13.8 Plt Count 251 Neut % (Auto) 50.7 Lymph % (Auto) 34.9 [place] % (Auto) 10.5 Eos % (Auto) 2.8 Baso % (Auto) 1.1 Neut # (Auto) 2900 Lymph # (Auto) 2000 [place] # (Auto) 600 Eos # (Auto) 200 Baso # (Auto) 100 Sodium 133 L Potassium 3.7 Chloride 101 Carbon Dioxide 26 BUN 3 L Creatinine 0.79 Estimated GFR > 60 BUN/Creatinine Ratio 3.8 L Glucose 91 Calcium 8.7 Magnesium 1.7 Total Bilirubin 0.8 AST 19 ALT 14 Alkaline Phosphatase 68 Total Protein 6.3 Albumin 3.6 Globulin 2.7 Albumin/Globulin Ratio 1.3 TSH 4.40 HCG, Quant 06/01/23 06:36 WBC RBC Hgb Hct MCV MCH MCHC RDW Plt Count Neut % (Auto) Lymph % (Auto) [place] % (Auto) Eos % (Auto) Baso % (Auto) Neut # (Auto) Lymph # (Auto) [place] # (Auto) Eos # (Auto) Baso # (Auto) Sodium Potassium Chloride Carbon Dioxide BUN Creatinine Estimated GFR BUN/Creatinine Ratio Glucose Calcium Magnesium Total Bilirubin AST ALT Alkaline Phosphatase Total Protein Albumin Globulin Albumin/Globulin Ratio TSH HCG, Quant < 2.4 PFSH Medical History Acne (~2015) Chlamydia infection (~2020) Endometriosis (~2020) Heavy menstrual period (~2018) Irregular menstrual cycle (~2020) Ovarian cyst Painful menstrual periods (~2020) Surgical History Anesthesia Hx of laparoscopy (07/11/22) Lymphangioma S/P ACL reconstruction (~09/11/21) TOA (tubo-ovarian abscess) (~10/01/21) Social History household members: spouse Smoking Status: Never smoker alcohol intake: never Assessment & Plan Assessment & Plan narrative: 1. Acute idiopathic pancreatitis, present on admission - No biliary disease, no ETOH use, TG level normal. - continue clears for now given nausea/vomiting - advance diet as tolerated, still on clears - prn pain medications - MRCP completely normal - repeat lipase now normal - spoke with GI who recommended autoimmune labs and continuing to wait and advance diet slowly. No indication for ERCP. 2. Ovarian cysts - patient with ovarian cysts on recent pelvic ultrasound, do not believe these to be contributing to current pain symptoms - test negative 3. History of endometriosis Code: FULL DVT: Lovenox daily Dispo: inpatient, discharge home when tolerating a diet with improved pain. Likely 1-2 more days.
[2023-06-01 20:11] VITALS: BP 102/58; PULSE 54; RESP 16; TEMP 36.8; O2SAT 100
[2023-06-01] MEDS: ZOLPIDEM 5 MG TABLET PO (23:11)
[2023-06-02 00:44] VITALS: BP 105/54; PULSE 59; RESP 18; TEMP 36.8; O2SAT 99
[2023-06-02] MEDS: OXYCODONE IR 5 MG TABLET PO ×3 (03:07→15:26)
[2023-06-02] MEDS: HYDROMORPHONE 0.5 MG INJ IV ×3 (03:11→13:59)
[2023-06-02] MEDS: SODIUM CHLORIDE 0.9% FLUSH 10 ML IV ×4 (03:12→11:21)
[2023-06-02] MEDS: PANTOPRAZOLE 40 MG VIAL IV (05:36)
[2023-06-02] MEDS: METOCLOPRAMIDE 10 MG/2 ML INJ IV ×2 (05:36→13:59)
[2023-06-02 05:52] VITALS: BP 92/40; PULSE 56; RESP 16; TEMP 37.1; O2SAT 98
[2023-06-02 06:16] VITALS: BP 98/50
[2023-06-02] MEDS: ENOXAPARIN 40 MG/0.4 ML SYRINGE SUBCUT (08:03)
[2023-06-02 08:15] VITALS: BP 92/44; PULSE 47; RESP 16; TEMP 36.4; O2SAT 98
[2023-06-02] MEDS: ONDANSETRON 4 MG/2 ML INJ IV (11:21)
[2023-06-02 12:00] VITALS: BP 93/42; PULSE 49; RESP 17; TEMP 36.4; O2SAT 97
[2023-06-02 15:32] VITALS: BP 102/50
--- NOTE | 2023-06-02 15:44 | PC.NURSE ---
pt had some fruits and adi crackers and Popsicle. she tolerated most of it. no vomiting. she said she wants to go home.
[2023-06-03 17:49] LABS: ANA Screen, IFA Negative (.)
[2023-06-03 19:26] LABS: IgG Subclass 1 368 mg/dL (248-810); IgG Subclass 2 213 mg/dL (130-555); IgG Subclass 3 36 mg/dL (15-102); IgG Subclass 4 61 mg/dL (2-96); IgG Total 713 mg/dL (586-1602)
--- NOTE | 2023-06-04 08:46 | PM.DS.1 ---
History of Present Illness History of Present Illness Date Patient Seen: 05/29/23 Time Patient Seen: 12:32 Chief complaint: abd pain, NV Narrative: Per admitting provider: This is a 18 year old female with PMH of endometriosis, rhabdomyolysis after intense workout who presented with abdominal pain since 05/27. 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 Had CT and pelvic ultrasound which showed small ovarian simple cysts. Thought of mild pancreatitis given elevated lipase and was discharged home. She presented early this morning with worsening left upper quadrant abdominal pain, radiating to the back, with nausea and vomiting. She denied fever, chills, chest pain. No dysuria or urinary frequency. Abdominal ultrasound was unremarkable with no biliary disease. Lipid panel with normal TG this morning. She does not drink EtOH either. Patient admitted with idiopathic acute pancreatitis. Discharge Providers Provider Date of admission: 05/29/23 04:48 Discharge Date: 06/02/23 Primary care physician: LOI Dixon Discharge provider: Jorje Hill MD Summary Hospital Course Discharge Diagnosis: 1. Acute pancreatitis 2. Left sided ovarian cysts 3. History of endometriosis Hospital Course: Ms. Rosen was admitted with epigastric abdominal pain and decreased appetite. She had elevated lipase consistent with pancreatitis. Her CT scan showed left sided ovarian cysts that were thought less likely to be contributing to her pain. She improved slowly. On day of discharge she was wanting to trial going home and was advised to continue with a bland diet and follow up with her PCP. Her workup ultimately showed no evidence of gallstones, no medication etiology, no alcohol concerns. Her etiology of pancreatitis remained uncertain, she did have autoimmunte labs that were ordered and pending at discharge. She should follow up with these with her PCP. Exam Vital Signs (past 8 hours): Oxygen Delivery Method Room Air Oxygen Flow Rate 0 Narrative Exam Narrative: General: no acute distress Lungs:?clear bilaterally Cardio:?regular rate and rhythm Abdomen: soft, non-distended, epigastric tenderness with no rebound/guarding Objective Labs 06/01/23 06:36 06/01/23 06:36 Labs: Laboratory Results - last 24 hr 05/28/23 05/30/23 22:07 06:10 IgG Subclass 1 368 IgG Subclass 2 213 IgG Subclass 3 36 IgG Subclass 4 61 Immunoglobulin A IgG Ab 713 Anti-Nuclear Antibody Negative [facility] Medical History Acne (~2015) Chlamydia infection (~2020) Endometriosis (~2020) Heavy menstrual period (~2018) Irregular menstrual cycle (~2020) Ovarian cyst Painful menstrual periods (~2020) Surgical History Anesthesia Hx of laparoscopy (07/11/22) Lymphangioma S/P ACL reconstruction (~09/11/21) TOA (tubo-ovarian abscess) (~10/01/21) Social History household members: spouse Smoking Status: Never smoker alcohol intake: never Discharge Plan Discharge Plan Patient Disposition: Home Provider Discharge Comment: Ms. Rosen came in to the hospital with abdominal pain. She had pancreatitis. She had small ovarian cysts on her left ovary. She felt somewhat better with pain and nausea medicine. She should avoid fatty foods while feeling ill. She should be away from work while feeling ill, for the next week until 06/09, unless cleared earlier by her doctor. Discharge orders & Medications Prescriptions: New oxycodone 5 mg Tablet 5 mg PO Q3HR PRN (Reason: Pain, Severe (7-10)) Qty: 20 0RF ondansetron 4 mg tablet,disintegrating 4 mg PO Q8H Qty: 20 0RF Discontinued hydrocodone-acetaminophen 5-325 mg tablet 1 tab PO Q4-6H PRN (Reason: pain) Qty: 20 0RF ketorolac 10 mg tablet 10 mg PO Q6H PRN (Reason: pain) Qty: 14 0RF ondansetron 4 mg tablet,disintegrating 4 mg PO TID-QID PRN (Reason: nausea and vomiting) Qty: 10 0RF Follow up/Referrals: Ana Rosa Guy ARNP [Primary Care Provider] - Diet/Activity/Treatments Diet: Low-fat and Low-cholesterol Visit Report/Discharge Packet Instructions: DI for Pancreatitis Stand Alone Forms: Patient Portal/API, Stroke Signs & Symptoms Discharge Data Primary Care Provider: Ana Rosa Guy Discharges patient from system. Discharge Date/Time: 06/02/23 15:45
== END 2023-06-02 15:45 | disposition home or self-care (01) | DRG 440 ==
LOC: ED 05-29 04:47 → AC 05-29 07:44
PROVIDERS: Internal Medicine; Student in an Organized Health Care Education/Training Program; Admitting Provider Family Medicine; Emergency Provider Emergency Medicine; PCP Nurse Practitioner Family; Referring Provider Emergency Medicine; Visit Provider Family Medicine
DX: K85.00 Idiopathic acute pancreatitis without necrosis or infection (principal); N83.202 Unspecified ovarian cyst, left side; Z87.42 Personal history of other diseases of the female genital tract
CPT/HCPCS: 36415; 74183; 76705; 80053; 80061; 81003; 81025; 82784; 82787; 82962; 83690; 83735; 84443; 84478; 84702; 85025; 86038; 96374; 96375; 99284; C9113; J1170; J1650; J1885; J2405; J2765; J3475; J7050

== ENCOUNTER 2023-06-17 20:08 | Emergency (ER) | payer OTHER, SELFPAY ==
[2023-05-29 05:46] VITALS: BMI 28.3
[2023-06-17] VITALS (8 sets, daily range): BP systolic 96–117; BP diastolic 55–69; PULSE 53–80; RESP 16–18; TEMP 36.8; O2SAT 97–99; BMI 26.2
[2023-06-17] MEDS: ONDANSETRON 4 MG/2 ML INJ IV (20:39)
[2023-06-17 21:02] LABS: Add Manual Diff / Slide Review NO; Basophils Absolute Auto 100 /uL (0-100); Eosinophils Absolute Auto 400 /uL (0-450); Eosinophils Percent Auto 4.8 % (2-4); Hematocrit 41.3 % (36-46); Hemoglobin 14.1 g/dL (12.0-16.0); Lymphocytes Absolute Auto 2800 /uL (1100-4500); Lymphocytes Percent Auto 37.4 % (25-40); Mean Corpuscular HGB Conc 34.1 % (30-36); Mean Corpuscular Hemoglobin 29.6 PG (26-34); Mean Corpuscular Volume 86.8 fL (80-100); Monocytes Absolute Auto 600 /uL (0-900); Monocytes Percent Auto 7.8 % (3-14); Neutrophils Absolute Auto 3600 /uL (1500-7000); Platelet Count 454 X10^3/uL (150-400); Red Blood Cell Count 4.75 X10^6/uL (4.0-5.2); Red Cell Distribution Width 14.1 % (11.6-14.8); White Blood Cell Count 7.4 X10^3/uL (4.5-11.0)
[2023-06-17 21:20] LABS: Alanine Aminotransferase 20 IU/L (<35); Albumin 4.6 g/dL (3.5-5.0); Albumin Globulin Ratio 1.5 (1.0-2.8); Alkaline Phosphatase 84 U/L (38-126); Aspartate Aminotransferase 28 IU/L (14-36); BUN Creatinine Ratio 17.8 (6-22); Bilirubin Total 0.5 mg/dL (0.2-1.3); Blood Urea Nitrogen 13 mg/dL (7-17); Calcium 9.8 mg/dL (8.4-10.2); Carbon Dioxide 25 mmol/L (22-32); Chloride 103 mmol/L (98-107); Estimated Glomerular Filt Rate > 60 mL/min (>60); Globulin 3.1 g/dL (1.7-4.1); Glucose 93 mg/dL (70-100); HEMOLYSIS 24 (0-50); Lipase 296 U/L (23-300); Potassium 4.2 mmol/L (3.4-5.1); Sodium 138 mmol/L (137-145); Total Protein 7.7 g/dL (6.3-8.2)
--- NOTE | 2023-06-17 21:39 | ED_ITS ---
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 She was initially hospitalized here on May 29 through , here she had imaging CT pelvic ultrasound CT abdomen abdominal ultrasound and an MRCP. Lipase was elevated greater than 1556. She was then admitted to [facility] on 06/05/2023 where she stayed for 4 days having increasing abdominal pain. She has celiac disease testing pending she is to follow-up with GI she had a repeat CT on June 06 which showed distal ileum dilation she is supposed to see GI for a colonoscopy for this evaluation. There was thought that she might have Crohn's disease but no other evidence to support this. She was discharged home with Reglan famotidine. She has been home for about 1 week she is been back at work 5-6 hours a day. She reports extreme fatigue but no nausea or vomiting. She started having epigastric pain radiating to her back similar to what had been previously. She denies any alcohol use no concern for alcoholism. She has been eating and drinking but just feels extreme weakness. Related Data Previous Rx's Medication Instructions Recorded ondansetron 4 mg disintegrating 4 mg PO Q8H #20 tabs 06/02/23 tablet oxycodone 5 mg tablet 5 mg PO Q3HR PRN Pain, Severe 06/02/23 (7-10) #20 tabs hydrocodone 5 mg-acetaminophen 325 1 tab PO Q6H PRN pain #10 tabs 06/17/23 mg tablet ketorolac 10 mg tablet 10 mg PO TID PRN pain #10 tabs 06/17/23 Allergies Allergy/AdvReac Type Severity Reaction Status Date / Time lactose Allergy Intermediate Hives/Nause Verified 05/27/23 00:32 a Opioids - Morphine Analogues Allergy Intermediate rash Verified 05/27/23 00:32 doxycycline AdvReac Intermediate vomitt Verified 05/27/23 00:32 amoxicillin AdvReac Vomiting Verified 05/27/23 00:32 Review of Systems Review of Systems ROS Unobtainable: All systems reviewed & are unremarkable except as noted in HPI and below Patient History Medical History Acne (~2015) Chlamydia infection (~2020) Endometriosis (~2020) Heavy menstrual period (~2018) Irregular menstrual cycle (~2020) Ovarian cyst Painful menstrual periods (~2020) Surgical History Anesthesia Hx of laparoscopy (07/11/22) Lymphangioma S/P ACL reconstruction (~09/11/21) TOA (tubo-ovarian abscess) (~10/01/21) Social History household members: spouse Smoking Status: Never smoker alcohol intake: never Smoking Status: Never smoker tobacco type: vaping alcohol intake frequency: holidays/special occasions only Alcohol type: wine Substance Use Type: does not use Exam Initial Vital Signs Initial Vital Signs: Vital Signs Temperature 98.2 F 06/17/23 20:10 Pulse Rate 72 06/17/23 20:10 Respiratory Rate 16 06/17/23 20:10 Blood Pressure 117/68 06/17/23 20:10 Pulse Oximetry 97 06/17/23 20:10 Oxygen Delivery Method Room Air 06/17/23 20:10 GENERAL: Alert week 18-year-old female HEENT: Head atraumatic,EOMI, pupils reactive, face symmetric, moist mucous membranes CARDIOVASCULAR: Regular rate and rhythm without murmurs, rubs or gallops. RESPIRATORY: Breath sounds equal bilaterally, no wheezes rales or rhonchi. ABDOMEN: Soft, mild epigastric pain no guarding no rebound r. Normoactive bowel sounds all 4 quadrants. No guarding or rebound. EXTREMITIES: Normal range of motion, no clubbing or edema. Neurovascularly intact NEUROLOGICAL: Alert and oriented x4. SKIN: Warm, dry, no laceration, no petechiae, no rashes or lesions. Course Orders Ordered: ED Orders 06/17/23 20:24 EKG-12 Lead Stat 06/17/23 20:32 Complete Blood Count AUTO DIFF Stat Comprehensive Metabolic Panel Stat Lipase Stat Discontinued Medications Hydrocodone Bitart/Acetaminophen (Hydrocodone/Acet 5/325 Prepack) 1 bottle MISC SEEINSTR ONE Stop: 06/17/23 23:08 Last Admin: 06/17/23 23:14 Dose: 1 bottle Documented By: GC Hydromorphone HCl (Hydromorphone 0.5 Mg Inj) 0.5 mg IV NOW ONE Stop: 06/17/23 21:51 Last Admin: 06/17/23 22:04 Dose: 0.5 mg Documented By: JAMES Sodium Chloride (Normal Saline 0.9%) 1,000 mls @ 1,000 mls/hr IV BOLUS ONE Stop: 06/17/23 22:49 Last Infusion: 06/17/23 22:48 Dose: 0 mls/hr Documented By: Admin: 06/17/23 22:03 Dose: 1,000 mls/hr Documented By: JAMES Ondansetron HCl (Ondansetron 4 Mg/2 Ml Inj) 4 mg IV NOW PRN PRN Reason: Nausea And Vomiting Last Admin: 06/17/23 20:39 Dose: 4 mg Documented By: WHITNEY Vital Signs Vital signs: Vital Signs - 8 hr 06/17/23 20:10 06/17/23 20:42 06/17/23 20:42 Temperature 98.2 F Pulse Rate 72 64 Respiratory Rate 16 Blood Pressure 117/68 112/69 Pulse Oximetry 97 98 Oxygen Delivery Method Room Air Room Air 06/17/23 21:00 06/17/23 21:00 06/17/23 21:30 Temperature Pulse Rate 60 Respiratory Rate 18 Blood Pressure 108/60 103/57 L Pulse Oximetry 97 Oxygen Delivery Method 06/17/23 21:30 06/17/23 22:00 06/17/23 22:00 Temperature Pulse Rate 56 L 54 L Respiratory Rate Blood Pressure 96/55 L Pulse Oximetry 97 97 Oxygen Delivery Method Room Air Room Air 06/17/23 22:30 06/17/23 22:30 06/17/23 22:52 Temperature Pulse Rate 61 Respiratory Rate Blood Pressure 106/62 106/57 L Pulse Oximetry 99 Oxygen Delivery Method 06/17/23 22:52 06/17/23 23:00 06/17/23 23:00 Temperature Pulse Rate 80 53 L Respiratory Rate 16 Blood Pressure 111/59 L Pulse Oximetry 99 98 Oxygen Delivery Method MDM - Abdominal Pain Lab Data 06/17/23 20:32 06/17/23 20:32 Labs: Lab Results 06/17/23 06/17/23 Range/Units 20:32 20:32 WBC 7.4 (4.5-11.0) X10^3/uL RBC 4.75 (4.0-5.2) X10^6/uL Hgb 14.1 (12.0-16.0) g/dL Hct 41.3 (36-46) % MCV 86.8 (80-100) fL MCH 29.6 (26-34) PG MCHC 34.1 (30-36) % RDW 14.1 (11.6-14.8) % Plt Count 454 H (150-400) X10^3/uL Neut % (Auto) 49.0 L (50-75) % Lymph % (Auto) 37.4 (25-40) % [place] % (Auto) 7.8 (3-14) % Eos % (Auto) 4.8 H (2-4) % Baso % (Auto) 1.0 (0-2) % Neut # (Auto) 3600 (1824-3203) /uL Lymph # (Auto) 2800 (6738-1195) /uL [place] # (Auto) 600 (0-900) /uL Eos # (Auto) 400 (0-450) /uL Baso # (Auto) 100 (0-100) /uL Sodium 138 (137-145) mmol/L Potassium 4.2 (3.4-5.1) mmol/L Chloride 103 (98-107) mmol/L Carbon Dioxide 25 (22-32) mmol/L BUN 13 (7-17) mg/dL Creatinine 0.73 (0.52-1.04) mg/dL Estimated GFR > 60 (>60) mL/min BUN/Creatinine Ratio 17.8 (6-22) Glucose 93 (70-100) mg/dL Calcium 9.8 (8.4-10.2) mg/dL Total Bilirubin 0.5 (0.2-1.3) mg/dL AST 28 (14-36) IU/L ALT 20 (<35) IU/L Alkaline Phosphatase 84 (38-126) U/L Total Protein 7.7 (6.3-8.2) g/dL Albumin 4.6 (3.5-5.0) g/dL Globulin 3.1 (1.7-4.1) g/dL Albumin/Globulin Ratio 1.5 (1.0-2.8) Lipase 296 (23-300) U/L Point of care testing: Point of Care Testing Test Results Negative Urine Dip Bedside Urine Glucose Negative Bedside Urine Bilirubin - Negative Bedside Urine Ketone - Negative Urine Specific [place] 1.01 Bedside Urine Occult Blood - Negative Bedside Urine pH 7 Bedside Urine Protein - Negative Bedside Urine Urobilinogen - Negative Bedside Urine Nitrite - Negative Bedside Urine Leukocytes - Negative Esterase MDM Narrative Medical decision making narrative: Patient 18-year-old female presents today with epigastric pain. She is had 2 admissions this month for pancreatitis is of unknown origin. Lipase today is 296. She is had more put multiple imaging already this month no need for any imaging. She has evidence of electrolyte abnormality or infection. She is supposed to follow-up with GI autoimmune labs are pending. Unfortunately symptoms control only no need for repeat admission. Discharge Plan Departure Patient Disposition: Home Clinical Impression: Abdominal pain Instructions: Acute Pancreatitis, Chronic Pancreatitis Activity Restrictions/Additional Instructions: *You have been diagnosed with abdominal pain *What to do: At this time no evidence of pancreatitis. He will still need to follow-up with GI for other testing and follow-up. *Continue to take medications as directed Ketorolac 10 mg every 8 hours only if needed for pain. Do not combine with Motrin Aleve naproxen Advil ibuprofen or other NSAIDs [place] 1 tablet every 6 hours if needed for severe pain *Follow up with your primary care provider in 2-3 days or call [phone] Follow-up with GI as scheduled *Return to ER if you should have increasing pain nausea vomiting or any new, worsening or concerning symptoms CONTROLLED SUBSTANCE DISCHARGE (Narcotoic/benzodiazepine/Flexeril/Phenergan) 1. You have been prescribed narcotic medications, it does have acetaminophen/Tylenol/paracetamol in it, DO NOT TAKE MORE THAN 4,00mg in 24 hours of Tylenol. TRAMADOL DOES NOT CONTAIN TYLENOL 2. Please understand that we cannot provide further refills of narcotics, benzodiazepines or controlled substances through the ED and her pain management will need to be through your provider. 3. While on these medications you cannot drive or operate heavy machinery. 4. You cannot sign legal documents or perform any duties such as this. 5. As long as you're taking opiate pain medications he should also be taking a stool softener such as Colace, Dulcolax, MiraLAX or prune juice, to help avoid constipation. Prescriptions: New ketorolac 10 mg tablet 10 mg PO TID PRN (Reason: pain) Qty: 10 0RF hydrocodone-acetaminophen 5-325 mg tablet 1 tab PO Q6H PRN (Reason: pain) Qty: 10 0RF No Action oxycodone 5 mg Tablet 5 mg PO Q3HR PRN (Reason: Pain, Severe (7-10)) Qty: 20 0RF ondansetron 4 mg tablet,disintegrating 4 mg PO Q8H Qty: 20 0RF Referrals: Ana Rosa Guy ARNP [Primary Care Provider] - Stand Alone Forms: Patient Portal/API
[2023-06-17] MEDS: SODIUM CHLORIDE 0.9% 1,000 ML 1000 ML IV (22:03)
[2023-06-17] MEDS: HYDROMORPHONE 0.5 MG INJ IV (22:04)
[2023-06-17] MEDS: HYDROCODONE/ACET 5/325 PREPACK 1 BOTTLE MISC (23:14)
== END 2023-06-17 23:17 | disposition home or self-care (01) ==
PROVIDERS: Emergency Provider Emergency Medicine; PCP Nurse Practitioner Family
DX: R10.13 Epigastric pain (principal)
CPT/HCPCS: 36415; 80053; 81003; 81025; 83690; 85025; 96361; 96374; 96375; 99284; J1170; J2405

== ENCOUNTER 2023-06-21 00:36 | Emergency (ER) | payer OTHER, SELFPAY ==
[2023-05-29 05:46] VITALS: BMI 28.3
[2023-06-21 00:48] VITALS: BP 109/59; PULSE 74; RESP 16; TEMP 36.6; O2SAT 97; BMI 26.2
[2023-06-21 01:23] LABS: Add Manual Diff / Slide Review NO; Basophils Absolute Auto 100 /uL (0-100); Eosinophils Absolute Auto 300 /uL (0-450); Eosinophils Percent Auto 3.8 % (2-4); Hematocrit 36.3 % (36-46); Hemoglobin 12.6 g/dL (12.0-16.0); Lymphocytes Absolute Auto 3000 /uL (1100-4500); Lymphocytes Percent Auto 39.6 % (25-40); Mean Corpuscular HGB Conc 34.6 % (30-36); Mean Corpuscular Volume 86.6 fL (80-100); Monocytes Absolute Auto 700 /uL (0-900); Monocytes Percent Auto 8.6 % (3-14); Neutrophils Absolute Auto 3600 /uL (1500-7000); Platelet Count 401 X10^3/uL (150-400); Red Blood Cell Count 4.19 X10^6/uL (4.0-5.2); Red Cell Distribution Width 14.4 % (11.6-14.8); White Blood Cell Count 7.7 X10^3/uL (4.5-11.0)
[2023-06-21] MEDS: ONDANSETRON 4 MG/2 ML INJ IV (01:24)
[2023-06-21 01:33] LABS: Alanine Aminotransferase 16 IU/L (<35); Albumin 4.1 g/dL (3.5-5.0); Albumin Globulin Ratio 1.6 (1.0-2.8); Alkaline Phosphatase 77 U/L (38-126); Aspartate Aminotransferase 24 IU/L (14-36); BUN Creatinine Ratio 20.9 (6-22); Bilirubin Total 0.4 mg/dL (0.2-1.3); Blood Urea Nitrogen 18 mg/dL (7-17); Calcium 8.5 mg/dL (8.4-10.2); Carbon Dioxide 25 mmol/L (22-32); Chloride 104 mmol/L (98-107); Estimated Glomerular Filt Rate > 60 mL/min (>60); Globulin 2.6 g/dL (1.7-4.1); Glucose 88 mg/dL (70-100); HEMOLYSIS 19 (0-50); Lipase 215 U/L (23-300); Potassium 3.8 mmol/L (3.4-5.1); Sodium 137 mmol/L (137-145); Total Protein 6.7 g/dL (6.3-8.2)
[2023-06-21 01:40] LABS: Bacteria Urine Moderate (10-30); RBC Urine 0-1/HPF (0-5/HPF); WBC Urine 0-1/HPF (0-5/HPF)
[2023-06-21 01:41] LABS: Amorphous Sediment Urine 3+; Culture Indicated Urine Cult Not Indicated; Squamous Epithelial Cell Urine 5-10 /HPF (0-5/HPF)
--- NOTE | 2023-06-21 03:04 | ED_ITS ---
HPI - Abdominal Pain General Chief Complaint: Abdominal Pain Stated Complaint: ABD PAIN, NAUSEA,VOMITTING Time Seen by Provider: 06/21/23 01:46 Source: patient Mode of arrival: Ambulatory Limitations: no limitations History of Present Illness HPI narrative: 18-year-old female presents with complaint of abdominal pain, nausea and vomiting. Patient has had recent hospitalizations x2 for pancreatitis she had MRCP on 05/31/2023 which was negative, she states her symptoms seem to improve when she is on a clear liquid diet she tried chicken and rice this evening trying to advance her diet and started having increasing pain, had some vomiting. She states pain goes through to her back. She denies fevers or chill s. She states she is tried her oral Toradol and Zofran at home which was not helpful. She states she has prescriptions daily for omeprazole, Reglan, she has Toradol, Zofran and oxycodone PRN. Patient states she is been having bowel movements. She denies any diarrhea constipation, no black or bloody stools. No dysuria, urgency or frequency. No new vaginal bleeding or discharge. Patient states she was doing until this evening. She states she had a 2nd hospitalization for several days at [facility]. She states they tried to proper for colonoscopy but were unsuccessful she could not tolerate the prep. She has not had an upper EGD. Patient has had prior ex laps bilaterally for ovarian cysts. She has allergies to lactose, morphine, doxycycline and amoxicillin. She is accompanied by her mother today. Denies tobacco, alcohol or illicit. Related Data Previous Rx's Medication Instructions Recorded ondansetron 4 mg disintegrating 4 mg PO Q8H #20 tabs 06/02/23 tablet oxycodone 5 mg tablet 5 mg PO Q3HR PRN Pain, Severe 06/02/23 (7-10) #20 tabs hydrocodone 5 mg-acetaminophen 325 1 tab PO Q6H PRN pain #10 tabs 06/17/23 mg tablet ketorolac 10 mg tablet 10 mg PO TID PRN pain #10 tabs 06/17/23 Allergies Allergy/AdvReac Type Severity Reaction Status Date / Time lactose Allergy Intermediate Hives/Nause Verified 05/27/23 00:32 a morphine Allergy Intermediate Rash Verified 06/21/23 00:56 doxycycline AdvReac Intermediate vomitt Verified 05/27/23 00:32 amoxicillin AdvReac Vomiting Verified 05/27/23 00:32 Review of Systems Review of Systems ROS Unobtainable: All systems reviewed & are unremarkable except as noted in HPI and below Patient History Medical History Acne (~2015) Chlamydia infection (~2020) Endometriosis (~2020) Heavy menstrual period (~2018) Irregular menstrual cycle (~2020) Ovarian cyst Painful menstrual periods (~2020) Surgical History Anesthesia Hx of laparoscopy (07/11/22) Lymphangioma S/P ACL reconstruction (~09/11/21) TOA (tubo-ovarian abscess) (~10/01/21) Social History household members: spouse Smoking Status: Never smoker alcohol intake: never Smoking Status: Never smoker tobacco type: vaping alcohol intake frequency: holidays/special occasions only Alcohol type: wine Substance Use Type: does not use Exam Narrative Exam Narrative: GENERAL: Alert and oriented x three, female in mild distress. HEENT: Head normocephalic, atraumatic, EOMI, pupils reactive, face symmetric, moist mucous membranes NECK: Supple, full range of motion CARDIOVASCULAR: Regular rate and rhythm without murmurs, rubs or gallops. RESPIRATORY: Breath sounds equal bilaterally, no wheezes rales or rhonchi. ABDOMEN: Soft, patient has some mild epigastric tenderness on examination. Nondistended. Normoactive bowel sounds all 4 quadrants. No guarding or rebound, rigidity, no mass : No CVA tenderness EXTREMITIES: Normal range of motion, no clubbing or edema. Neurovascularly intact NEUROLOGICAL: Cranial nerves II through XII grossly intact. Moving all extremities SKIN: Warm, dry, no petechiae, no rashes or lesions. Initial Vital Signs Initial Vital Signs: Vital Signs Temperature 98 F 06/21/23 00:48 Pulse Rate 74 06/21/23 00:48 Respiratory Rate 16 06/21/23 00:48 Blood Pressure 109/59 L 06/21/23 00:48 Pulse Oximetry 97 06/21/23 00:48 Oxygen Delivery Method Room Air 06/21/23 00:48 Course Orders Ordered: ED Orders 06/21/23 01:05 Urine Microscopic Stat 06/21/23 01:12 Complete Blood Count AUTO DIFF Stat Comprehensive Metabolic Panel Stat Lipase Stat Discontinued Medications Diphenhydramine HCl (Diphenhydramine 50 Mg/Ml Vial) 50 mg IV NOW ONE Stop: 06/21/23 03:18 Last Admin: 06/21/23 03:32 Dose: 50 mg Documented By: SOHEILA Hydromorphone HCl (Hydromorphone 0.5 Mg Inj) 0.5 mg IV NOW ONE Stop: 06/21/23 04:40 Last Admin: 06/21/23 04:47 Dose: 0.5 mg Documented By: SOHEILA Sodium Chloride (Normal Saline 0.9%) 1,000 mls @ 1,000 mls/hr IV BOLUS ONE Stop: 06/21/23 04:16 Last Infusion: 06/21/23 04:33 Dose: 0 mls/hr Documented By: Admin: 06/21/23 03:32 Dose: 1,000 mls/hr Documented By: SOHEILA Ketorolac Tromethamine (Ketorolac 30 Mg/Ml Vial) 15 mg IV NOW ONE Stop: 06/21/23 03:18 Last Admin: 06/21/23 03:50 Dose: 15 mg Documented By: SOHEILA Lorazepam (Lorazepam 2 Mg/Ml Inj) 0.5 mg IV NOW ONE Stop: 06/21/23 04:05 Last Admin: 06/21/23 04:11 Dose: 0.5 mg Documented By: SOHEILA Ondansetron HCl (Ondansetron 4 Mg Odt) 4 mg PO NOW PRN PRN Reason: Nausea And Vomiting Ondansetron HCl (Ondansetron 4 Mg/2 Ml Inj) 4 mg IV NOW PRN PRN Reason: Nausea And Vomiting Last Admin: 06/21/23 01:24 Dose: 4 mg Documented By: SOHEILA Pantoprazole Sodium (Pantoprazole 40 Mg Vial) 40 mg IV NOW ONE Stop: 06/21/23 03:22 Last Admin: 06/21/23 03:32 Dose: 40 mg Documented By: SOHEILA Vital Signs Vital signs: Vital Signs - 8 hr 06/21/23 00:48 06/21/23 03:52 06/21/23 03:53 Temperature 98 F Pulse Rate 74 71 Respiratory Rate 16 Blood Pressure 109/59 L 95/51 L Pulse Oximetry 97 97 Oxygen Delivery Method Room Air 06/21/23 03:53 06/21/23 04:45 06/21/23 06:08 Temperature Pulse Rate 60 60 Respiratory Rate Blood Pressure 96/56 L 99/53 L Pulse Oximetry 97 99 Oxygen Delivery Method Room Air MDM - Abdominal Pain Lab Data 06/21/23 01:12 06/21/23 01:12 Labs: Lab Results 06/21/23 06/21/23 06/21/23 Range/Units 01:05 01:12 01:12 WBC 7.7 (4.5-11.0) X10^3/uL RBC 4.19 (4.0-5.2) X10^6/uL Hgb 12.6 (12.0-16.0) g/dL Hct 36.3 (36-46) % MCV 86.6 (80-100) fL MCH 30.0 (26-34) PG MCHC 34.6 (30-36) % RDW 14.4 (11.6-14.8) % Plt Count 401 H (150-400) X10^3/uL Neut % (Auto) 47.0 L (50-75) % Lymph % (Auto) 39.6 (25-40) % [place] % (Auto) 8.6 (3-14) % Eos % (Auto) 3.8 (2-4) % Baso % (Auto) 1.0 (0-2) % Neut # (Auto) 3600 (6156-5035) /uL Lymph # (Auto) 3000 (5593-8557) /uL [place] # (Auto) 700 (0-900) /uL Eos # (Auto) 300 (0-450) /uL Baso # (Auto) 100 (0-100) /uL Sodium 137 (137-145) mmol/L Potassium 3.8 (3.4-5.1) mmol/L Chloride 104 (98-107) mmol/L Carbon Dioxide 25 (22-32) mmol/L BUN 18 H (7-17) mg/dL Creatinine 0.86 (0.52-1.04) mg/dL Estimated GFR > 60 (>60) mL/min BUN/Creatinine Ratio 20.9 (6-22) Glucose 88 (70-100) mg/dL Calcium 8.5 (8.4-10.2) mg/dL Total Bilirubin 0.4 (0.2-1.3) mg/dL AST 24 (14-36) IU/L ALT 16 (<35) IU/L Alkaline Phosphatase 77 (38-126) U/L Total Protein 6.7 (6.3-8.2) g/dL Albumin 4.1 (3.5-5.0) g/dL Globulin 2.6 (1.7-4.1) g/dL Albumin/Globulin Ratio 1.6 (1.0-2.8) Lipase 215 (23-300) U/L Urine RBC 0-1/hpf (0-5/HPF) Urine WBC 0-1/hpf (0-5/HPF) Ur Squamous Epith Cells 5-10 /hpf H (0-5/HPF) Amorphous Sediment 3+ Urine Bacteria Moderate (10-30) H (None) Ur Culture Indicated? Cult not indicated Point of care testing: Point of Care Testing Test Results Negative Urine Dip Bedside Urine Glucose Negative Bedside Urine Bilirubin - Negative Bedside Urine Ketone - Negative Urine Specific [place] 1.005 Bedside Urine Occult Blood +/- Bedside Urine pH 8.0 Bedside Urine Protein +/- 15 Bedside Urine Urobilinogen - Negative Bedside Urine Nitrite - Negative Bedside Urine Leukocytes - Negative Esterase MDM Narrative Medical decision making narrative: Discussed with patient overall labs CBC, CMP and lipase are reassuring, she is a BUN of 18 normal renal function no elevation in LFTs. Lipase is negative. Patient's point of care and urine are negative specific gravity was 1.005, patient does not have any leuks or nitrates. Discussed with patient and family overall exam is reassuring with normal labs at this time and advancement of her diet would like to give fluids, antinausea and pain medication and monitor. If patient is able to tolerate oral challenge we will probably discharge home if that fails will proceed with further imaging. Patient and family are agreeable with this plan as they would like to avoid radiation if able. Recheck after medications: Patient is not have any vomiting but is feeling very twitchy and uncomfortable. She tolerates seems like Reglan well but probably having a little bit of a dystonic reaction to the Benadryl. Was given a dose of Ativan. Patient was improved. Still having abdominal pain so was given additional dose of IV narcotic pain medication. Patient has been able to tolerate oral challenge here in the department. She is feeling somewhat improved still uncomfortable no vomiting. She feels comfortable returning home as does her mom. She has home pain medications including oral Toradol, Zofran, Reglan and oxycodone at home and defers any additional prescriptions. Discussed return precautions. Plan for clear liquid diet for the next 24-48 hours can advance over time as tolerated. Discharge Plan Departure Patient Disposition: Home Clinical Impression: Abdominal pain, Vomiting Instructions: DI for Vomiting -- Adult Activity Restrictions/Additional Instructions: Please follow-up with your physician, I would recommend follow-up for EGD/endoscopy. Today your labs are overall reassuring. Continue your home medications as prescribed including your antinausea medication and pain medications as needed. Return to a clear liquid diet and after 24-48 hours if you are continuing to be asymptomatic you can try to advance again with very bland foods. Please return for fevers, rapidly worsening abdominal back or flank pain, persistent vomiting, black or bloody stools, inability to have a bowel movement or passed gas or other new or concerning changes. Prescriptions: No Action oxycodone 5 mg Tablet 5 mg PO Q3HR PRN (Reason: Pain, Severe (7-10)) Qty: 20 0RF ondansetron 4 mg tablet,disintegrating 4 mg PO Q8H Qty: 20 0RF ketorolac 10 mg tablet 10 mg PO TID PRN (Reason: pain) Qty: 10 0RF hydrocodone-acetaminophen 5-325 mg tablet 1 tab PO Q6H PRN (Reason: pain) Qty: 10 0RF Referrals: Ana Rosa Guy ARNP [Primary Care Provider] - Stand Alone Forms: Patient Portal/API
[2023-06-21] MEDS: diphenhydrAMINE 50 MG/ML VIAL IV (03:32)
[2023-06-21] MEDS: PANTOPRAZOLE 40 MG VIAL IV (03:32)
[2023-06-21] MEDS: SODIUM CHLORIDE 0.9% 1,000 ML 1000 ML IV (03:32)
[2023-06-21] MEDS: KETOROLAC 30 MG/ML VIAL 15 MG IV (03:50)
[2023-06-21 03:52] VITALS: O2SAT 97
[2023-06-21 03:53] VITALS: BP 95/51; PULSE 60; PULSE 71; O2SAT 97
[2023-06-21] MEDS: LORazepam 2 MG/ML INJ 0.5 MG IV (04:11)
[2023-06-21 04:45] VITALS: BP 96/56
[2023-06-21] MEDS: HYDROMORPHONE 0.5 MG INJ IV (04:47)
[2023-06-21 06:08] VITALS: BP 99/53; PULSE 60; O2SAT 99
== END 2023-06-21 06:14 | disposition home or self-care (01) ==
PROVIDERS: Emergency Provider Emergency Medicine; PCP Nurse Practitioner Family
DX: R10.9 Unspecified abdominal pain (principal); R11.2 Nausea with vomiting, unspecified
CPT/HCPCS: 36415; 80053; 81003; 81015; 81025; 83690; 85025; 96361; 96374; 96375; 99284; C9113; J1170; J1200; J1885; J2060; J2405

== ENCOUNTER 2023-07-01 20:29 | Emergency (ER) | payer OTHER, SELFPAY ==
[2023-05-29 05:46] VITALS: BMI 28.3
[2023-07-01 20:42] VITALS: BP 124/67; PULSE 73; RESP 16; TEMP 36.8; O2SAT 100; BMI 26.2
[2023-07-01 21:22] LABS: Add Manual Diff / Slide Review NO; Basophils Absolute Auto 100 /uL (0-100); Eosinophils Absolute Auto 500 /uL (0-450); Eosinophils Percent Auto 4.8 % (2-4); Hematocrit 38.5 % (36-46); Hemoglobin 13.3 g/dL (12.0-16.0); Lymphocytes Absolute Auto 3500 /uL (1100-4500); Mean Corpuscular HGB Conc 34.5 % (30-36); Mean Corpuscular Hemoglobin 30.1 PG (26-34); Mean Corpuscular Volume 87.2 fL (80-100); Monocytes Absolute Auto 800 /uL (0-900); Neutrophils Absolute Auto 4700 /uL (1500-7000); Neutrophils Percent Auto 49.2 % (50-75); Platelet Count 334 X10^3/uL (150-400); Red Blood Cell Count 4.42 X10^6/uL (4.0-5.2); Red Cell Distribution Width 14.5 % (11.6-14.8); White Blood Cell Count 9.5 X10^3/uL (4.5-11.0)
[2023-07-01 21:28] LABS: Alanine Aminotransferase 16 IU/L (<35); Albumin 4.6 g/dL (3.5-5.0); Albumin Globulin Ratio 1.5 (1.0-2.8); Alkaline Phosphatase 80 U/L (38-126); Aspartate Aminotransferase 23 IU/L (14-36); BUN Creatinine Ratio 16.2 (6-22); Bilirubin Total 0.5 mg/dL (0.2-1.3); Blood Urea Nitrogen 12 mg/dL (7-17); Calcium 8.7 mg/dL (8.4-10.2); Carbon Dioxide 25 mmol/L (22-32); Chloride 102 mmol/L (98-107); Estimated Glomerular Filt Rate > 60 mL/min (>60); Glucose 88 mg/dL (70-100); HEMOLYSIS < 15 (0-50); Lipase 215 U/L (23-300); Potassium 3.9 mmol/L (3.4-5.1); Sodium 138 mmol/L (137-145); Total Protein 7.6 g/dL (6.3-8.2)
[2023-07-01 23:57] VITALS: PULSE 66; O2SAT 99
[2023-07-02] VITALS (8 sets, daily range): BP systolic 101–111; BP diastolic 50–74; PULSE 59–83; TEMP 36.6; O2SAT 96–99
--- NOTE | 2023-07-02 01:09 | ED.ABDPAIN ---
HPI - Abdominal Pain General Chief Complaint: Abdominal Pain Stated Complaint: abd and back pain Time Seen by Provider: 07/01/23 20:33 Source: patient Mode of arrival: Ambulatory History of Present Illness HPI narrative: 18-year-old female nonsmoker with history of endometriosis and pancreatitis presents at the request of her GI doctor for evaluation of epigastric pain with radiation to the back. She states that she saw Dr. Foote yesterday who ordered labs and found her amylase and lipase to be slightly elevated and he encouraged her to present here for evaluation and an ultrasound. She states the pain is severe in her epigastrium and radiates to her back. She had multiple episodes of nausea and vomiting earlier in the day but is now keeping water down. She states her pain seems to be worse when she moves and with certain foods and improves with rest. She denies any change in medications. Related Data Previous Rx's Medication Instructions Recorded ondansetron 4 mg disintegrating 4 mg PO Q8H #20 tabs 06/02/23 tablet oxycodone 5 mg tablet 5 mg PO Q3HR PRN Pain, Severe 06/02/23 (7-10) #20 tabs hydrocodone 5 mg-acetaminophen 325 1 tab PO Q6H PRN pain #10 tabs 06/17/23 mg tablet ketorolac 10 mg tablet 10 mg PO TID PRN pain #10 tabs 06/17/23 pantoprazole 40 mg tablet,delayed 40 mg PO DAILY #30 tabs 07/02/23 release (Protonix) Allergies Allergy/AdvReac Type Severity Reaction Status Date / Time diphenhydramine Allergy Severe ITCHING Verified 07/01/23 20:53 [From Benadryl] lactose Allergy Intermediate Hives/Nause Verified 05/27/23 00:32 a morphine Allergy Intermediate Rash Verified 06/21/23 00:56 doxycycline AdvReac Intermediate vomitt Verified 05/27/23 00:32 amoxicillin AdvReac Vomiting Verified 05/27/23 00:32 Review of Systems Review of Systems Narrative: GENERAL: Denies chills, fatigue, malaise, fever, sweats. HEENT: Denies sinus pain, ear pain, sore throat, difficulty swallowing, dizziness. RESPIRATORY: Denies dyspnea, cough, wheezing, hemoptysis, sputum. CARDIOVASCULAR: Denies chest pain, palpitations, orthopnea, edema, GASTROINTESTINAL: See HPI : Denies dysuria, frequency, incontinence, hematuria, urinary retention. MUSCULOSKELETAL: denies weakness, joint pain, or bony pain SKIN: Denies rash, skin lesions, or other NEUROLOGIC: Denies weakness, headache, numbness, change in speech, confusion, seizures, incoordination. PSYCHIATRIC: No concerning psychosocial issues. 12 point review of systems is negative except for those stated above Patient History Medical History Acne (~2015) Chlamydia infection (~2020) Endometriosis (~2020) Heavy menstrual period (~2018) Irregular menstrual cycle (~2020) Ovarian cyst Painful menstrual periods (~2020) Surgical History Anesthesia Hx of laparoscopy (07/11/22) Lymphangioma S/P ACL reconstruction (~09/11/21) TOA (tubo-ovarian abscess) (~10/01/21) Social History household members: spouse Smoking Status: Never smoker alcohol intake: never Smoking Status: Never smoker tobacco type: vaping alcohol intake frequency: holidays/special occasions only Alcohol type: wine Substance Use Type: does not use Exam Narrative Exam Narrative: GENERAL: [18] year old patient appears stated age. Well-developed patient, in mild distress. HEAD: Atraumatic. Normocephalic. EYES: Pupils equal round and reactive. Extraocular motions intact. No scleral icterus. No injection or drainage. ENT: Nose without bleeding, purulent drainage. Throat without erythema, tonsillar hypertrophy or exudate. Airway patent. NECK: Trachea midline. Non tender CARDIOVASCULAR: Regular rate and rhythm without murmurs, gallops, or rubs. RESPIRATORY: Clear to auscultation. Breath sounds equal bilaterally. No wheezes, rales, or rhonchi. GASTROINTESTINAL: Abdomen soft, epigastric pain, nondistended. EXTREMITIES: No edema or joint tenderness. BACK: Nontender without deformity or crepitance. No flank tenderness. NEURO: AOx3. SKIN: No rash or erythema of visible areas Initial Vital Signs Initial Vital Signs: Vital Signs Temperature 98.2 F 07/01/23 20:42 Pulse Rate 73 07/01/23 20:42 Respiratory Rate 16 07/01/23 20:42 Blood Pressure 124/67 07/01/23 20:42 Pulse Oximetry 100 07/01/23 20:42 Oxygen Delivery Method Room Air 07/01/23 20:42 Course Orders Ordered: Discontinued Medications Al Hydrox/Mg Hydrox/Simethicone (Mag Hydrox/Alum/Simeth 30 Ml Udc) 30 ml PO NOW ONE Stop: 07/02/23 02:14 Last Admin: 07/02/23 02:29 Dose: 30 ml Documented By: MARIS Sodium Chloride (Normal Saline 0.9%) 1,000 mls @ 1,000 mls/hr IV BOLUS ONE Stop: 07/02/23 02:14 Last Infusion: 07/02/23 02:26 Dose: 0 mls/hr Documented By: Admin: 07/02/23 01:26 Dose: 1,000 mls/hr Documented By: AVINASH Ketorolac Tromethamine (Ketorolac 30 Mg/Ml Vial) 15 mg IV NOW ONE Stop: 07/02/23 01:30 Last Admin: 07/02/23 01:41 Dose: 15 mg Documented By: MARIS Ondansetron HCl (Ondansetron 4 Mg Odt) 4 mg PO NOW PRN PRN Reason: Nausea And Vomiting Ondansetron HCl (Ondansetron 4 Mg/2 Ml Inj) 4 mg IV NOW PRN PRN Reason: Nausea And Vomiting Pantoprazole Sodium (Pantoprazole 40 Mg Vial) 40 mg IV NOW ONE Stop: 07/02/23 01:16 Last Admin: 07/02/23 01:26 Dose: 40 mg Documented By: AVINASH Vital Signs Vital signs: Vital Signs - 8 hr 07/01/23 20:42 Temperature 98.2 F Pulse Rate 73 Respiratory Rate 16 Blood Pressure 124/67 Pulse Oximetry 100 Oxygen Delivery Method Room Air MDM - Abdominal Pain Lab Data 07/01/23 21:05 07/01/23 21:05 Labs: Lab Results 07/01/23 07/01/23 Range/Units 21:05 21:05 WBC 9.5 (4.5-11.0) X10^3/uL RBC 4.42 (4.0-5.2) X10^6/uL Hgb 13.3 (12.0-16.0) g/dL Hct 38.5 (36-46) % MCV 87.2 (80-100) fL MCH 30.1 (26-34) PG MCHC 34.5 (30-36) % RDW 14.5 (11.6-14.8) % Plt Count 334 (150-400) X10^3/uL Neut % (Auto) 49.2 L (50-75) % Lymph % (Auto) 37.0 (25-40) % [place] % (Auto) 8.0 (3-14) % Eos % (Auto) 4.8 H (2-4) % Baso % (Auto) 1.0 (0-2) % Neut # (Auto) 4700 (3100-4696) /uL Lymph # (Auto) 3500 (2294-7879) /uL [place] # (Auto) 800 (0-900) /uL Eos # (Auto) 500 H (0-450) /uL Baso # (Auto) 100 (0-100) /uL Sodium 138 (137-145) mmol/L Potassium 3.9 (3.4-5.1) mmol/L Chloride 102 (98-107) mmol/L Carbon Dioxide 25 (22-32) mmol/L BUN 12 (7-17) mg/dL Creatinine 0.74 (0.52-1.04) mg/dL Estimated GFR > 60 (>60) mL/min BUN/Creatinine Ratio 16.2 (6-22) Glucose 88 (70-100) mg/dL Calcium 8.7 (8.4-10.2) mg/dL Total Bilirubin 0.5 (0.2-1.3) mg/dL AST 23 (14-36) IU/L ALT 16 (<35) IU/L Alkaline Phosphatase 80 (38-126) U/L Total Protein 7.6 (6.3-8.2) g/dL Albumin 4.6 (3.5-5.0) g/dL Globulin 3.0 (1.7-4.1) g/dL Albumin/Globulin Ratio 1.5 (1.0-2.8) Lipase 215 (23-300) U/L Point of care testing: Point of Care Testing Test Results Negative Urine Dip Bedside Urine Glucose Negative Bedside Urine Bilirubin - Negative Bedside Urine Ketone - Negative Urine Specific [place] 1.005 Bedside Urine Occult Blood - Negative Bedside Urine pH 6.0 Bedside Urine Protein - Negative Bedside Urine Urobilinogen - Negative Bedside Urine Nitrite - Negative Bedside Urine Leukocytes - Negative Esterase MDM Narrative Medical decision making narrative: [18] year old patient presents with epigastric pain and radiation to the back Multiple etiologies for patient's symptoms considered including, but not limited to: [Pancreatitis versus gallbladder disease versus other] Prior Charts reviewed in our EMR Primary Historian: patient Labs reviewed and interpreted by myself: No leukocytosis or left shift, renal function, bilirubin and lipase within normal Imaging reviewed: ABD US withouit acute findings Patient's history and physical exam are reassuring. Multiple diagnoses considered as noted above. Labs unremarkable and no evidence of biliary obstruction or pancreatitis. Ultrasound unremarkable. Pain improved, patient tolerating orals. We did discuss the utility of a CT scan but sure the opinion that given improvement of symptoms and normal labs that we will hold off for now Patient's symptoms improved over duration of stay with above-stated therapies. Findings and discharge diagnosis discussed with patient/family followed by verbalization of understanding Return precautions discussed with patient/family whom verbalize understanding of diagnosis and plan Discharge Plan Departure Patient Disposition: Home Clinical Impression: Acute epigastric pain Instructions: DI for Epigastric Pain Activity Restrictions/Additional Instructions: *You have been diagnosed with [abdominal pain] * As we discussed your history and physical exam as well as labs and imaging are very reassuring. There is no evidence of any severe diagnoses that would require a specific or immediate intervention. *What to do: *Please continue to take your regular medications as directed. Also as we discussed, please consider getting some [id number] Maalox as it may help your symptoms [x ] New medication prescriptions sent to your pharmacy: [[facility] ] *Please follow up with Dr. Foote's office, call later today and let them know that you were in the emergency department and we would like you seen in follow-up. *Please consider a clear liquid diet for the next 24-48 hours and then slowly advance to regular as tolerated. Also, try to avoid alcohol, nicotine, caffeine, spicy, acidic or fatty foods as this may worsen your symptoms *Return to Emergency Department if you should have any new, worsening or concerning symptoms, such as [fever greater than 101 F, shaking chills, worsening pain, persistent vomiting or other bothersome symptoms] Prescriptions: New pantoprazole [Protonix] 40 mg tablet,delayed release (DR/EC) 40 mg PO DAILY Qty: 30 0RF No Action oxycodone 5 mg Tablet 5 mg PO Q3HR PRN (Reason: Pain, Severe (7-10)) Qty: 20 0RF ondansetron 4 mg tablet,disintegrating 4 mg PO Q8H Qty: 20 0RF ketorolac 10 mg tablet 10 mg PO TID PRN (Reason: pain) Qty: 10 0RF hydrocodone-acetaminophen 5-325 mg tablet 1 tab PO Q6H PRN (Reason: pain) Qty: 10 0RF Referrals: Ana Rosa Guy ARNP [Primary Care Provider] - Stand Alone Forms: Patient Portal/API
--- NOTE | 2023-07-02 01:16 | DI.US.S_ITS ---
PROCEDURE: US ABDOMEN LIMITED INDICATIONS: epigastric pain TECHNIQUE: Real-time scanning was performed of the abdominal and retroperitoneal organs, with image documentation. COMPARISON: [facility], , US ABDOMEN LIMITED, 05/29/2023, 2:08. FINDINGS: Liver: Liver is normal in size and homogeneous in echotexture. Gallbladder: The gallbladder has no gallstones, pericholecystic fluid, gallbladder wall thickening, or surrounding inflammatory change. Biliary ducts: Intrahepatic bile ducts are non-dilated. Extrahepatic bile duct caliber measures 2.1 mm. Normal is 6-7 mm or less in diameter, or 10 mm or less post-cholecystectomy. Pancreas: Visualized portions of the pancreas are sonographically normal. Miscellaneous: No free abdominal fluid. IMPRESSION: No acute plain film abnormality of the abdomen. Dictated by: Juan Krishnamurthy M.D. on 07/02/2023 at 8:34 Approved by: Juan Krishnamurthy M.D. on 07/02/2023 at 8:37
[2023-07-02] MEDS: PANTOPRAZOLE 40 MG VIAL IV (01:26)
[2023-07-02] MEDS: SODIUM CHLORIDE 0.9% 1,000 ML 1000 ML IV (01:26)
[2023-07-02] MEDS: KETOROLAC 30 MG/ML VIAL 15 MG IV (01:41)
[2023-07-02] MEDS: MAG HYDROX/ALUM/SIMETH 30 ML UDC PO (02:29)
== END 2023-07-02 02:52 | disposition home or self-care (01) ==
PROVIDERS: Emergency Provider Emergency Medicine; PCP Nurse Practitioner Family
DX: R10.13 Epigastric pain (principal)
CPT/HCPCS: 36415; 76705; 80053; 81003; 81025; 83690; 85025; 96361; 96374; 96375; 99284; C9113; J1885

== ENCOUNTER 2023-09-30 08:27 | Emergency (ER) | payer OTHER, SELFPAY ==
[2023-05-29 05:46] VITALS: BMI 28.3
[2023-09-30 08:31] VITALS: BP 120/74; PULSE 83; RESP 18; TEMP 36.8; O2SAT 100; BMI 27.4
--- NOTE | 2023-09-30 08:41 | ED_ITS ---
HPI - Allergic Reaction General Chief complaint: Allergic Reaction Stated complaint: Allergy reaction, redness and eye swelling Time Seen by Provider: 09/30/23 08:40 Source: patient Mode of arrival: Ambulatory Limitations: no limitations History of Present Illness HPI narrative: 18-year-old female vapes tobacco, patient presents with complaint of possible allergic reaction to her eyes. Patient had eyelash extensions placed 2 days ago. She woke up the next day with irritation had them removed. She states she is taken loratadine [id number] but has had increasing swelling, itching and irritation of the eyelids. She states vision is very mildly blurred. She states the eye itself does not seem to be involved. Patient states she is had some tearing but no other drainage or purulent drainage no crusting. She thought she had a couple hives on her cheek yesterday. Patient states she has not use last interventions in the past. She is put ice to the affected area which has been somewhat helpful. She is not taken Benadryl as she gets a paradoxical reaction to it. She presents as it is gotten little bit worse today than yesterday. Patient states no other medical issues currently. She has all ergies reactions to Benadryl, lactose, morphine, doxycycline and amoxicillin. Vapes tobacco, occasional alcohol, no recreational drugs. Related Data Previous Rx's Medication Instructions Recorded ondansetron 4 mg disintegrating 4 mg PO Q8H #20 tabs 06/02/23 tablet oxycodone 5 mg tablet 5 mg PO Q3HR PRN Pain, Severe 06/02/23 (7-10) #20 tabs hydrocodone 5 mg-acetaminophen 325 1 tab PO Q6H PRN pain #10 tabs 06/17/23 mg tablet ketorolac 10 mg tablet 10 mg PO TID PRN pain #10 tabs 06/17/23 pantoprazole 40 mg tablet,delayed 40 mg PO DAILY #30 tabs 07/02/23 release (Protonix) ofloxacin 0.3 % eye drops 2 drp EYE-BOTH Q4H 7 days #5 mL 09/30/23 prednisone 20 mg tablet 40 mg (2 x 20 mg) PO DAILY #6 tabs 09/30/23 Allergies Allergy/AdvReac Type Severity Reaction Status Date / Time diphenhydramine Allergy Severe ITCHING Verified 07/01/23 20:53 [From Benadryl] lactose Allergy Intermediate Hives/Nause Verified 05/27/23 00:32 a morphine Allergy Intermediate Rash Verified 06/21/23 00:56 doxycycline AdvReac Intermediate vomitt Verified 05/27/23 00:32 amoxicillin AdvReac Vomiting Verified 05/27/23 00:32 Review of Systems Review of Systems ROS Unobtainable: All systems reviewed & are unremarkable except as noted in HPI and below Patient History Medical History Acne (~2015) Painful menstrual periods (~2020) Ovarian cyst Irregular menstrual cycle (~2020) Heavy menstrual period (~2018) Endometriosis (~2020) Chlamydia infection (~2020) Surgical History Hx of laparoscopy (07/11/22) Anesthesia Lymphangioma S/P ACL reconstruction (~09/11/21) TOA (tubo-ovarian abscess) (~10/01/21) Social History household members: spouse Smoking Status: Never smoker alcohol intake: never Smoking Status: Never smoker tobacco type: vaping alcohol intake frequency: holidays/special occasions only Alcohol type: wine Substance Use Type: does not use Exam Narrative Exam Narrative: GEN: well nourished, well appearing female, alert and oriented x 3, patient appears to be in mild distress. HEENT: Atraumatic, pupils are equal round reactive to light, extraocular movements are intact, nares are clear, TMs are clear with no fluid, there is no conjunctival pallor. Throat is clear without any exudates, erythema, tonsillar enlargement or uvular deviation General: no globe trauma Eyelids: Bilateral swelling mild erythema puffiness to the upper lids very mild to the lower, eyelids everted. Conjunctiva/Sclera: Very slightly injected, no swelling. Corneas: xamined with fluroscein on bilaterally, patient has some mild punctate uptake throughout no corneal abrasions or ulcerations. EOM: intact, no palsy/entrapment Pupils: PERRL, normal accomadation, pupil normal Anterior Chambers: normal inspection, no hypema Posterior: normal fundoscopic bilaterally HEART: Regular rate and rhythm without murmur, clicks, rubs. LUNGS:Lungs clear to auscultation, no wheezes, rales, crackles, chest moves symmetrically ABD:bowel sounds normal, soft, non-tender, no guarding, rebound, rigidity, no masses noted, no hepatosplenomegaly MSCL: Full range of motion, normal gait NEURO:CN 2-12 intact, sensation normal SKIN: Smell erythema of the cheeks surrounding the eyes. Initial Vital Signs Initial Vital Signs: Vital Signs Temperature 98.2 F 09/30/23 08:31 Pulse Rate 83 09/30/23 08:31 Respiratory Rate 18 09/30/23 08:31 Blood Pressure 120/74 09/30/23 08:31 Pulse Oximetry 100 09/30/23 08:31 Oxygen Delivery Method Room Air 09/30/23 08:31 Course Orders Ordered: Discontinued Medications Fluorescein Sodium (Fluorescein 1 Mg Strip) 1 mg EYE-BOTH NOW ONE Stop: 09/30/23 08:49 Last Admin: 09/30/23 08:52 Dose: 1 mg Documented By: AUSTIN Prednisone (Prednisone 20 Mg Tablet) 40 mg PO NOW ONE Stop: 09/30/23 09:13 Last Admin: 09/30/23 09:17 Dose: 40 mg Documented By: AUSTIN Proparacaine HCl (Proparacaine 0.5% Ophth Kaylee) 1 drops EYE-BOTH NOW ONE Stop: 09/30/23 08:49 Last Admin: 09/30/23 08:53 Dose: 1 drop Documented By: AUSTIN Vital Signs Vital signs: Vital Signs - 8 hr 09/30/23 08:31 Temperature 98.2 F Pulse Rate 83 Respiratory Rate 18 Blood Pressure 120/74 Pulse Oximetry 100 Oxygen Delivery Method Room Air MDM - Allergic Reaction MDM Narrative Medical decision making narrative: 18-year-old female with likely allergic reaction to I last extensions and glue. We will give a short course of oral steroid but we will also give antibiotic eyedrops. Patient had some mild scleral uptake that was punctate throughout. She does not have any purulent drainage is more tearful. Discussed with patient start oral steroids if no significant improvement in the next 24 hours to start antibiotic eyedrops. Discussed return precautions. If patient's symptoms improve but are not resolved she is to follow up with Ophthalmology. Contact given below. If symptoms are worsening patient is to return ER for re-evaluation Discharge Plan Departure Patient Disposition: Home Clinical Impression: Acute allergic reaction Activity Restrictions/Additional Instructions: Hope you continue to feel improved. I suspect you do have allergic reaction to glue or substances used for the eyelash extensions but you have some slight irritation to the white portion or sclera of her eye. If your symptoms are not significantly improved prednisone within 24 hours please start antibiotic eyedrops. If your symptoms improve but do not resolve over the next week please follow-up with ophthalmology for recheck or if it is slightly worsening. Contact information below. Take prednisone once daily until gone. You can continue with loratadine once daily as well. You may use ice to the affected areas. Use 2 drops to both eyes every 4 hours while awake, use this at least 4 times daily for 7 days. Prescription sent to [facility] in [place]. Please return for rapidly worsening swelling, new drainage purulent, increasing pain, sudden vision changes, rash or hives elsewhere, nausea or vomiting fevers or other new or concerning changes. Prescriptions: New prednisone 20 mg tablet 40 mg PO DAILY Qty: 6 0RF ofloxacin 0.3 % drops 2 drp EYE-BOTH Q4H 7 Days Qty: 5 0RF Rx Instructions: Use 2 drops to both eyes every 4 hours while awake (4 times daily) x7 days No Action oxycodone 5 mg Tablet 5 mg PO Q3HR PRN (Reason: Pain, Severe (7-10)) Qty: 20 0RF ondansetron 4 mg tablet,disintegrating 4 mg PO Q8H Qty: 20 0RF ketorolac 10 mg tablet 10 mg PO TID PRN (Reason: pain) Qty: 10 0RF hydrocodone-acetaminophen 5-325 mg tablet 1 tab PO Q6H PRN (Reason: pain) Qty: 10 0RF pantoprazole [Protonix] 40 mg tablet,delayed release (DR/EC) 40 mg PO DAILY Qty: 30 0RF Referrals: Davin Connolly MD [Physician] - Ana Rosa Guy ARNP [Primary Care Provider] - Stand Alone Forms: Patient Portal/API
[2023-09-30] MEDS: FLUORESCEIN 1 MG STRIP EYE-BOTH (08:52)
[2023-09-30] MEDS: PROPARACAINE 0.5% OPHTH SOL 1 DROPS EYE-BOTH (08:53)
[2023-09-30] MEDS: predniSONE 20 MG TABLET 40 MG PO (09:17)
== END 2023-09-30 09:18 | disposition home or self-care (01) ==
PROVIDERS: Emergency Provider Emergency Medicine; PCP Nurse Practitioner Family
DX: T78.49XA Other allergy, initial encounter (principal); X58.XXXA Exposure to other specified factors, initial encounter
CPT/HCPCS: 99283

== ENCOUNTER 2023-12-02 13:10 | Emergency (ER) | payer OTHER, SELFPAY ==
[2023-05-29 05:46] VITALS: BMI 28.3
[2023-12-02 14:12] VITALS: BP 120/68; PULSE 62; RESP 20; TEMP 36.9; O2SAT 95; BMI 25.7
[2023-12-02 16:02] LABS: Bacteria Urine Occasional (0-1); RBC Urine 0-1/HPF (0-5/HPF); Urine Volume 10mL (spun); WBC Urine 0-1/HPF (0-5/HPF)
[2023-12-02 16:03] LABS: Culture Indicated Urine Cult Not Indicated; Squamous Epithelial Cell Urine 5-10 /HPF (0-5/HPF)
[2023-12-02 16:24] LABS: Add Manual Diff / Slide Review NO; Basophils Absolute Auto 100 /uL (0-100); Basophils Percent Auto 0.8 % (0-2); Eosinophils Absolute Auto 300 /uL (0-450); Eosinophils Percent Auto 3.3 % (2-4); Hematocrit 39.8 % (36-46); Hemoglobin 13.5 g/dL (12.0-16.0); Lymphocytes Absolute Auto 2200 /uL (1100-4500); Lymphocytes Percent Auto 27.4 % (25-40); Mean Corpuscular Hemoglobin 29.4 PG (26-34); Mean Corpuscular Volume 86.6 fL (80-100); Monocytes Absolute Auto 500 /uL (0-900); Neutrophils Absolute Auto 4900 /uL (1500-7000); Neutrophils Percent Auto 62.5 % (50-75); Platelet Count 366 X10^3/uL (150-400); Red Blood Cell Count 4.59 X10^6/uL (4.0-5.2); Red Cell Distribution Width 13.6 % (11.6-14.8); White Blood Cell Count 7.9 X10^3/uL (4.5-11.0)
[2023-12-02 16:30] VITALS: BP 127/72; PULSE 88; RESP 16; O2SAT 99
[2023-12-02 16:40] LABS: Pregnancy Test Urine Negative (Negative)
[2023-12-02 16:42] LABS: Blood Urea Nitrogen 12 mg/dL (7-17); Carbon Dioxide 25 mmol/L (22-32); Chloride 103 mmol/L (98-107); Estimated Glomerular Filt Rate > 60 mL/min (>60); Glucose 95 mg/dL (70-100); HEMOLYSIS < 15 (0-50); Potassium 3.9 mmol/L (3.4-5.1); Sodium 138 mmol/L (137-145)
--- NOTE | 2023-12-02 17:09 | DI.US.S_ITS ---
PROCEDURE: US PELVIC COMPLETE INDICATIONS: RIGHT ADNEXA CRAMPING AND BLEEDING TECHNIQUE: Real-time scanning was performed of the pelvic organs, with image documentation. Additional endovaginal scanning was necessary due to incomplete visualization of the adnexal and endometrial structures by transabdominal scanning. COMPARISON: [facility], US, US PELVIC COMPLETE, 01/30/2023, 6:22. FINDINGS: Uterus: Uterus is anteverted and normal in size at 6.2 x 4.4 x 3.9 cm. The myometrium is homogeneous. The endometrium measures 4.3 mm combined thickness. Ovaries: The right ovary measures 3.3 x 2.2 x 1.7 cm, with a calculated ovarian volume of 6.4 cc. The left ovary measures 3.3 x 2.1 x 1.8 cm, with a calculated ovarian volume of 6.4 cc. The ovaries have a normal sonographic appearance. Less than 12 follicles can be seen in each ovary. No adnexal masses are seen. Positive arterial and venous flow on Doppler ultrasound to both ovaries. Other: No pathologic free abdominal or pelvic fluid. IMPRESSION: 1. A cause for right lower quad pain is not identified. We strive to produce accurate, complete, and clear reports of imaging services. To assist us in improving patient care, this report was composed using standard report templates and voice recognition software. Therefore, it may contain abnormal punctuation, insertions and/or omissions. Occasional wrong-word or sound-alike substitutions may occur. Though we review the report and make efforts to correct it, we do recommend that the report be read carefully in proper context to recognize any text inaccuracies. Dictated by: June Sneed M.D. on 12/02/2023 at 19:20 Approved by: June Sneed M.D. on 12/02/2023 at 19:21
--- NOTE | 2023-12-02 17:22 | ED_ITS ---
HPI - Female Genitourinary <Serene Varela PA-C - Last Filed: 12/02/23 19:40> General Chief complaint: Vaginal Bleeding Stated complaint: dizziness, nausea, cramps, heavy bleeding Time Seen by Provider: 12/02/23 15:59 Source: patient Mode of arrival: Ambulatory History of Present Illness HPI Narrative: 18-year-old female with past medical history pancreatitis, chronic salpingitis, tubo-ovarian abscess, status post salpingectomy presents to the ED with 3 days of vaginal bleeding. Patient states that she had her normal period 2 weeks ago, that this is not her usual menstruation time. Patient also endorses pelvic cramping and is passing clots. Patient is not on control. Patient is sexually active. Patient has a history of tubo-ovarian abscess from chlamydia. Patient also has a history of endometriosis. Patient denies fever, chills, chest pain, shortness of breath, lightheadedness, syncope. Patient endorses nausea. Patient declines test for GC. Related Data Previous Rx's Medication Instructions Recorded ondansetron 4 mg disintegrating 4 mg PO Q8H #20 tabs 06/02/23 tablet oxycodone 5 mg tablet 5 mg PO Q3HR PRN Pain, Severe 06/02/23 (7-10) #20 tabs hydrocodone 5 mg-acetaminophen 325 1 tab PO Q6H PRN pain #10 tabs 06/17/23 mg tablet ketorolac 10 mg tablet 10 mg PO TID PRN pain #10 tabs 06/17/23 pantoprazole 40 mg tablet,delayed 40 mg PO DAILY #30 tabs 07/02/23 release (Protonix) prednisone 20 mg tablet 40 mg (2 x 20 mg) PO DAILY #6 tabs 09/30/23 Allergies Allergy/AdvReac Type Severity Reaction Status Date / Time diphenhydramine Allergy Severe ITCHING Verified 12/02/23 14:16 [From Benadryl] lactose Allergy Intermediate Hives/Nause Verified 12/02/23 14:16 a morphine Allergy Intermediate Rash Verified 12/02/23 14:16 doxycycline AdvReac Intermediate vomitt Verified 12/02/23 14:16 amoxicillin AdvReac Vomiting Verified 12/02/23 14:16 Review of Systems <Serene Varela PA-C - Last Filed: 12/02/23 19:40> Constitutional Constitutional: Denies chills, Denies fatigue, Denies fever(s), Denies frequent falls, Denies lethargy and Denies weakness Eyes Eyes: Denies change in vision, Denies eye discharge, Denies irritation and Denies loss of vision ENT Ears, Nose, Mouth, and Throat: Denies change in voice, Denies dizziness, Denies neck pain, Denies sore throat and Denies throat swelling Cardiovascular Cardiovascular: Denies chest pain, Denies irregular heart rhythm, Denies lightheadedness, Denies palpitations, Denies dyspnea, Denies dyspnea on exertion and Denies orthopnea Respiratory Respiratory: Denies cough, Denies dyspnea, Denies dyspnea on exertion and Denies wheezing Gastrointestinal Gastrointestinal: Denies abdominal pain, Denies change in bowel habits, Denies diarrhea, Denies nausea and Denies vomiting Genitourinary Genitourinary: Reports abnormal vaginal bleeding, Reports metrorrhagia, Reports menorrhagia, Reports dysmenorrhea and Reports pelvic pain Musculoskeletal Musculoskeletal: Denies neck pain and Denies numbness Integumentary/Breasts Skin/Breast: Denies pruritus, Denies erythema, Denies rash and Denies wounds Neurologic Neurologic: Denies behavioral changes, Denies confusion, Denies dizziness, Denies frequent falls, Denies loss of vision, Denies numbness and Denies weakness Psychiatric Psychiatric: Denies anxiety, Denies behavioral changes, Denies confusion, Denies depression, Denies homicidal ideation and Denies suicidal ideation Endocrine Endocrine: Denies fatigue, Denies flushing and Denies palpitations Hematologic/Lymphatic Hematologic/Lymphatic: Denies easy bruising Allergic/Immunologic Allergic/Immunologic: Denies urticaria, Denies throat swelling and Denies wheezing Patient History <Serene Varela PA-C - Last Filed: 12/02/23 19:40> Medical History Acne (~2015) Painful menstrual periods (~2020) Ovarian cyst Irregular menstrual cycle (~2020) Heavy menstrual period (~2018) Endometriosis (~2020) Chlamydia infection (~2020) Surgical History Hx of laparoscopy (07/11/22) Anesthesia Lymphangioma S/P ACL reconstruction (~09/11/21) TOA (tubo-ovarian abscess) (~10/01/21) tobacco type: vaping alcohol intake frequency: holidays/special occasions only Alcohol type: wine Last Alcoholic Drink: 3 weeks ago Substance Use Type: does not use Exam <Serene Varela PA-C - Last Filed: 12/02/23 19:40> Narrative Exam Narrative: Const General:?cooperative, healthy appearing and comfortable HENNM Head:?normal to inspection Ears:?hearing grossly normal bilaterally Nose:?external nose normal Face and sinus:?normal facial exam and sinuses nontender Mouth:?oral mucosae normal Throat:?posterior oropharynx normal Eyes General:?appearance normal, both eyes and all related structures Neck Neck:?normal visual inspection and no lymphadenopathy noted Resp Effort & Inspection:?normal respiratory effort Auscultation:?clear to auscultation bilaterally Cardio Rate:?regular rate Rhythm:?regular rhythm GI Suprapubic and right pelvic tenderness to palpation. Abdomen is soft, nondistended. Neuro General:?patient alert, patient awake and patient oriented x3 Initial Vital Signs Initial Vital Signs: Vital Signs Temperature 98.5 F 12/02/23 14:12 Pulse Rate 62 12/02/23 14:12 Respiratory Rate 20 12/02/23 14:12 Blood Pressure 120/68 12/02/23 14:12 Pulse Oximetry 95 12/02/23 14:12 Oxygen Delivery Method Room Air 12/02/23 14:12 <Tory Edgar DO - Last Filed: 12/08/23 07:15> Initial Vital Signs Initial Vital Signs: Vital Signs Temperature 98.5 F 12/02/23 14:12 Pulse Rate 62 12/02/23 14:12 Respiratory Rate 20 12/02/23 14:12 Blood Pressure 120/68 12/02/23 14:12 Pulse Oximetry 95 12/02/23 14:12 Oxygen Delivery Method Room Air 12/02/23 14:12 Course <Serene Varela PA-C - Last Filed: 12/02/23 19:40> Orders Ordered: Discontinued Medications Ketorolac Tromethamine (Ketorolac 30 Mg/Ml Vial) 15 mg IV NOW ONE Stop: 12/02/23 17:27 Last Admin: 12/02/23 18:10 Dose: Not Given Documented By: LEIA Ketorolac Tromethamine (Ketorolac 30 Mg/Ml Vial) 30 mg IM NOW ONE Stop: 12/02/23 18:07 Last Admin: 12/02/23 18:11 Dose: 30 mg Documented By: LEIA Vital Signs Vital signs: Vital Signs - 8 hr 12/02/23 14:12 12/02/23 16:30 12/02/23 19:20 Temperature 98.5 F Pulse Rate 62 88 76 Respiratory Rate 20 16 14 Blood Pressure 120/68 127/72 122/73 Pulse Oximetry 95 99 98 Oxygen Delivery Method Room Air Room Air <Tory Edgar DO - Last Filed: 12/08/23 07:15> Orders Ordered: Discontinued Medications Ketorolac Tromethamine (Ketorolac 30 Mg/Ml Vial) 15 mg IV NOW ONE Stop: 12/02/23 17:27 Last Admin: 12/02/23 18:10 Dose: Not Given Documented By: LEIA Ketorolac Tromethamine (Ketorolac 30 Mg/Ml Vial) 30 mg IM NOW ONE Stop: 12/02/23 18:07 Last Admin: 12/02/23 18:11 Dose: 30 mg Documented By: LEIA Vital Signs Vital signs: Vital Signs - 8 hr 12/02/23 14:12 12/02/23 16:30 12/02/23 19:20 Temperature 98.5 F Pulse Rate 62 88 76 Respiratory Rate 20 16 14 Blood Pressure 120/68 127/72 122/73 Pulse Oximetry 95 99 98 Oxygen Delivery Method Room Air Room Air MDM - Female Genitourinary <Serene Varela PA-C - Last Filed: 12/02/23 19:40> Lab Data 12/02/23 16:00 12/02/23 16:00 Labs: Lab Results 12/02/23 12/02/23 Range/Units 15:30 16:00 WBC 7.9 (4.5-11.0) X10^3/uL RBC 4.59 (4.0-5.2) X10^6/uL Hgb 13.5 (12.0-16.0) g/dL Hct 39.8 (36-46) % MCV 86.6 (80-100) fL MCH 29.4 (26-34) PG MCHC 34.0 (30-36) % RDW 13.6 (11.6-14.8) % Plt Count 366 (150-400) X10^3/uL Neut % (Auto) 62.5 (50-75) % Lymph % (Auto) 27.4 (25-40) % [place] % (Auto) 6.0 (3-14) % Eos % (Auto) 3.3 (2-4) % Baso % (Auto) 0.8 (0-2) % Neut # (Auto) 4900 (5621-2876) /uL Lymph # (Auto) 2200 (3983-1267) /uL [place] # (Auto) 500 (0-900) /uL Eos # (Auto) 300 (0-450) /uL Baso # (Auto) 100 (0-100) /uL Sodium 138 (137-145) mmol/L Potassium 3.9 (3.4-5.1) mmol/L Chloride 103 (98-107) mmol/L Carbon Dioxide 25 (22-32) mmol/L BUN 12 (7-17) mg/dL Creatinine 0.75 (0.52-1.04) mg/dL Estimated GFR > 60 (>60) mL/min BUN/Creatinine Ratio 16.0 (6-22) Glucose 95 (70-100) mg/dL Calcium 9.0 (8.4-10.2) mg/dL Urine RBC 0-1/hpf (0-5/HPF) Urine WBC 0-1/hpf (0-5/HPF) Ur Squamous Epith Cells 5-10 /hpf H (0-5/HPF) Urine Bacteria Occasional (0-1) (None) Ur Culture Indicated? Cult not indicated Vol Urine Centrifuged 10ml (spun) Urine Test Negative (Negative) Blood Type A Positive Antibody Screen Negative Point of Care Testing Test Results Negative Urine Dip Bedside Urine Glucose Negative Bedside Urine Bilirubin - Negative Bedside Urine Ketone - Negative Urine Specific [place] 1.010 Bedside Urine Occult Blood +++ Bedside Urine pH 6 Bedside Urine Protein - Negative Bedside Urine Urobilinogen - Negative Bedside Urine Nitrite - Negative Bedside Urine Leukocytes - Negative Esterase MDM Narrative Medical decision making narrative: 18-year-old female with past medical history pancreatitis, chronic salpingitis, tubo-ovarian abscess, status post salpingectomy presents to the ED with 3 days of vaginal bleeding. Concern for dysmenorrhea versus irregular period vs menometrorrhagia vs endometriosis versus intrauterine versus ectopic versus miscarriage versus other. Will obtain labs, UA, urine , us pelvic. Labs within normal limits. UA without UTI. Urine is negative. Awaiting ultrasound pelvis. Ultrasound with no acute findings. Discussed findings with patient. Patient agrees to follow-up with her OBGYN Dr. Hahn as soon as possible. ED return precautions discussed with patient. Patient verbalized understanding. Medical records reviewed: Yes <Tory Vannessa Herve, DO - Last Filed: 12/08/23 07:15> Lab Data Labs: Lab Results 12/02/23 12/02/23 Range/Units 15:30 16:00 WBC 7.9 (4.5-11.0) X10^3/uL RBC 4.59 (4.0-5.2) X10^6/uL Hgb 13.5 (12.0-16.0) g/dL Hct 39.8 (36-46) % MCV 86.6 (80-100) fL MCH 29.4 (26-34) PG MCHC 34.0 (30-36) % RDW 13.6 (11.6-14.8) % Plt Count 366 (150-400) X10^3/uL Neut % (Auto) 62.5 (50-75) % Lymph % (Auto) 27.4 (25-40) % [place] % (Auto) 6.0 (3-14) % Eos % (Auto) 3.3 (2-4) % Baso % (Auto) 0.8 (0-2) % Neut # (Auto) 4900 (8276-8218) /uL Lymph # (Auto) 2200 (1874-2783) /uL [place] # (Auto) 500 (0-900) /uL Eos # (Auto) 300 (0-450) /uL Baso # (Auto) 100 (0-100) /uL Sodium 138 (137-145) mmol/L Potassium 3.9 (3.4-5.1) mmol/L Chloride 103 (98-107) mmol/L Carbon Dioxide 25 (22-32) mmol/L BUN 12 (7-17) mg/dL Creatinine 0.75 (0.52-1.04) mg/dL Estimated GFR > 60 (>60) mL/min BUN/Creatinine Ratio 16.0 (6-22) Glucose 95 (70-100) mg/dL Calcium 9.0 (8.4-10.2) mg/dL Urine RBC 0-1/hpf (0-5/HPF) Urine WBC 0-1/hpf (0-5/HPF) Ur Squamous Epith Cells 5-10 /hpf H (0-5/HPF) Urine Bacteria Occasional (0-1) (None) Ur Culture Indicated? Cult not indicated Vol Urine Centrifuged 10ml (spun) Urine Test Negative (Negative) Blood Type A Positive Antibody Screen Negative Point of Care Testing Test Results Negative Urine Dip Bedside Urine Glucose Negative Bedside Urine Bilirubin - Negative Bedside Urine Ketone - Negative Urine Specific [place] 1.010 Bedside Urine Occult Blood +++ Bedside Urine pH 6 Bedside Urine Protein - Negative Bedside Urine Urobilinogen - Negative Bedside Urine Nitrite - Negative Bedside Urine Leukocytes - Negative Esterase Discharge Plan Departure Patient Disposition: Home Clinical Impression: Menometrorrhagia Instructions: DI for Dysmenorrhea, DI for Menorrhagia Activity Restrictions/Additional Instructions: You were evaluated in the ED today for an irregular period and pelvic cramping. Your labs are normal and your urine does not show an infection. Your test is negative. Your ultrasound was normal. That can be multiple reasons why you have a irregular period including endometriosis and changes in hormones. Please follow-up with your customer solutions representative Dr. Hahn as soon as possible for further evaluation. You may take ibuprofen 800 mg every 8 hours for the pain and bleeding. Ibuprofen is specifically helpful to control not only the pain but the vaginal bleeding as well. Return to the ED if you have worsening symptoms. Prescriptions: No Action oxycodone 5 mg Tablet 5 mg PO Q3HR PRN (Reason: Pain, Severe (7-10)) Qty: 20 0RF ondansetron 4 mg tablet,disintegrating 4 mg PO Q8H Qty: 20 0RF ketorolac 10 mg tablet 10 mg PO TID PRN (Reason: pain) Qty: 10 0RF hydrocodone-acetaminophen 5-325 mg tablet 1 tab PO Q6H PRN (Reason: pain) Qty: 10 0RF prednisone 20 mg tablet 40 mg PO DAILY Qty: 6 0RF pantoprazole [Protonix] 40 mg tablet,delayed release (DR/EC) 40 mg PO DAILY Qty: 30 0RF Referrals: [facility] [Primary Care Provider] - Stand Alone Forms: Patient Portal/API ED Sign-out <Tory Edgar DO - Last Filed: 12/08/23 07:15> Cosign ED Attending Cosignature Attestation: I was immediately available in the department for consultation.
[2023-12-02] MEDS: KETOROLAC 30 MG/ML VIAL IM (18:11)
[2023-12-02 19:20] VITALS: BP 122/73; PULSE 76; RESP 14; O2SAT 98
== END 2023-12-02 19:40 | disposition home or self-care (01) ==
PROVIDERS: Emergency Medicine; Emergency Provider Student in an Organized Health Care Education/Training Program
DX: N92.1 Excessive and frequent menstruation with irregular cycle (principal)
CPT/HCPCS: 76830; 76856; 80048; 81003; 81015; 81025; 85025; 86850; 86900; 86901; 87086; 93975; 96372; 99284; J1885

== ENCOUNTER → 2024-04-21 14:32 | Outpatient (CLI) | payer OTHER, SELFPAY ==
[2023-05-29 05:46] VITALS: BMI 28.3
[2024-04-21 15:10] LABS: Add Manual Diff / Slide Review NO; Basophils Absolute Auto 100 /uL (0-100); Basophils Percent Auto 0.5 % (0-2); Eosinophils Absolute Auto 100 /uL (0-450); Eosinophils Percent Auto 1.3 % (2-4); Hematocrit 38.2 % (36-46); Hemoglobin 13.3 g/dL (12.0-16.0); Lymphocytes Absolute Auto 2100 /uL (1100-4500); Lymphocytes Percent Auto 18.9 % (25-40); Mean Corpuscular HGB Conc 34.7 % (30-36); Mean Corpuscular Hemoglobin 30.3 PG (26-34); Mean Corpuscular Volume 87.3 fL (80-100); Monocytes Absolute Auto 600 /uL (0-900); Monocytes Percent Auto 5.1 % (3-14); Neutrophils Absolute Auto 8100 /uL (1500-7000); Neutrophils Percent Auto 74.2 % (50-75); Platelet Count 355 X10^3/uL (150-400); Red Blood Cell Count 4.37 X10^6/uL (4.0-5.2); Red Cell Distribution Width 13.8 % (11.6-14.8); White Blood Cell Count 10.9 X10^3/uL (4.5-11.0)
[2024-04-21 15:30] LABS: Appearance Urine UA CLEAR; Bilirubin Urine UA NEGATIVE (NEGATIVE); Color Urine UA YELLOW; Glucose Urine UA NEGATIVE (Negative); Ketones Urine UA 1+ (NEGATIVE); Leukocyte Esterase Urine UA NEGATIVE (NEGATIVE); Nitrite Urine UA NEGATIVE (Negative); Occult Blood Urine UA NEGATIVE (Negative); Protein Urine UA NEGATIVE (Negative); Specific Gravity Urine UA <=1.005 (1.000-1.035); Urobilinogen Urine UA 0.2 E.U./dL (0.2)
[2024-04-21 16:39] LABS: Urine Chlamydia NOT DETECTED; Urine N gonorrhoeae NOT DETECTED
[2024-04-22 14:39] LABS: Hepatitis B Surface Antigen NEGATIVE s/c (NEGATIVE); Rubella Antibody IgG 17.1 IU/mL (>15)
[2024-04-22 14:58] LABS: HIV 1 & 2 Ab/Ag 4th Gen Combo NEGATIVE (NEGATIVE); Hep C Virus Ab w/Reflex Quant NEGATIVE s/c (NEGATIVE)
[2024-04-23 14:17] LABS: Varicella IgG Antibody 342 index (Immune >165)
[2024-04-24 07:13] LABS: RPR Screen Non Reactive (Non Reactive)
== END ==
PROVIDERS: Referring Provider Family Medicine; Visit Provider Family Medicine
DX: Z34.00 Encounter for supervision of normal first pregnancy, unspecified trimester (principal)
CPT/HCPCS: 36415; 80055; 81003; 86480; 86787; 86803; 86850; 86900; 86901; 87086; 87389; 87491; 87591

== ENCOUNTER 2024-04-27 13:20 | Emergency (ER) | payer OTHER, SELFPAY ==
[2023-05-29 05:46] VITALS: BMI 28.3
[2024-04-27 13:25] VITALS: BP 118/69; PULSE 78; RESP 18; TEMP 36.8; O2SAT 100; BMI 28.8
[2024-04-27] MEDS: ONDANSETRON 4 MG/2 ML INJ IV (14:15)
[2024-04-27] MEDS: SODIUM CHLORIDE 0.9% 1,000 ML 1000 ML IV (14:15)
[2024-04-27 14:35] LABS: Add Manual Diff / Slide Review NO; Basophils Absolute Auto 0 /uL (0-100); Basophils Percent Auto 0.4 % (0-2); Eosinophils Absolute Auto 200 /uL (0-450); Eosinophils Percent Auto 1.6 % (2-4); Hematocrit 36.9 % (36-46); Hemoglobin 12.7 g/dL (12.0-16.0); Lymphocytes Absolute Auto 1800 /uL (1100-4500); Lymphocytes Percent Auto 16.3 % (25-40); Mean Corpuscular HGB Conc 34.4 % (30-36); Mean Corpuscular Hemoglobin 29.9 PG (26-34); Monocytes Absolute Auto 700 /uL (0-900); Monocytes Percent Auto 6.6 % (3-14); Neutrophils Absolute Auto 8300 /uL (1500-7000); Neutrophils Percent Auto 75.1 % (50-75); Platelet Count 312 X10^3/uL (150-400); Red Blood Cell Count 4.25 X10^6/uL (4.0-5.2); Red Cell Distribution Width 13.7 % (11.6-14.8)
[2024-04-27 14:40] LABS: Alanine Aminotransferase 18 IU/L (<35); Albumin 4.3 g/dL (3.5-5.0); Albumin Globulin Ratio 1.7 (1.0-2.8); Alkaline Phosphatase 63 U/L (38-126); Aspartate Aminotransferase 41 IU/L (14-36); BUN Creatinine Ratio 15.5 (6-22); Bilirubin Total 0.7 mg/dL (0.2-1.3); Blood Urea Nitrogen 11 mg/dL (7-17); Calcium 9.1 mg/dL (8.4-10.2); Carbon Dioxide 22 mmol/L (22-32); Chloride 106 mmol/L (98-107); Estimated Glomerular Filt Rate > 60 mL/min (>60); Globulin 2.5 g/dL (1.7-4.1); Glucose 86 mg/dL (70-100); HEMOLYSIS 27 (0-50); Lipase 74 U/L (23-300); Potassium 3.5 mmol/L (3.4-5.1); Sodium 136 mmol/L (137-145); Total Protein 6.8 g/dL (6.3-8.2)
[2024-04-27] MEDS: METOCLOPRAMIDE 10 MG/2 ML INJ IV (14:52)
[2024-04-27 15:36] VITALS: BP 101/51; PULSE 69; O2SAT 98
--- NOTE | 2024-04-27 17:52 | ED_ITS ---
HPI - Nausea/Vomiting/Diarrhea <Serene Varela PA-C - Last Filed: 05/04/24 11:44> General Chief complaint: Nausea/Vomiting/Diarrhea Stated complaint: dehydrated, 8wks , sent by doctor Time Seen by Provider: 04/27/24 14:18 Source: patient Mode of arrival: Ambulatory History of Present Illness HPI Narrative: 19-year-old female who is 8 weeks presents to the ED with 3 days of nausea and vomiting. Patient reports that she has been nauseous for the past few weeks since she found out she was , however over the last 3 days she has been unable to keep down solids or fluids due to the nausea and vomiting. Patient has seen her OB last week, had an ultrasound. Patient has been prescribed Zofran by her Ob which is not helping with the nausea. Patient endorses nausea, vomiting, lightheadedness, fatigue. Patient denies fever, chills, chest pain, shortness of breath, abdominal pain, vaginal bleeding, dysuria, syncope. Related Data Home Medications Medication Instructions Recorded Confirmed vit no.[id number] 1 tab PO DAILY 04/20/24 04/21/24 fumarate 28 mg-folic acid 800 mcg tablet ( Multivitamins) Previous Rx's Medication Instructions Recorded doxylamine succinate 25 mg tablet 25 mg PO BEDTIME PRN nausea #30 04/21/24 tabs ondansetron 4 mg disintegrating 4 mg PO Q8H PRN nausea and 04/21/24 tablet vomiting #30 tabs pyridoxine (vitamin B6) 50 mg 50 mg PO BID-QID #90 tabs 04/21/24 tablet metoclopramide HCl 10 mg tablet 10 mg PO Q6H PRN nausea and 04/27/24 (Reglan) vomiting #30 tabs promethazine 25 mg rectal 25 mg AL Q6H PRN nausea and 05/06/24 suppository vomiting #12 ea Allergies Allergy/AdvReac Type Severity Reaction Status Date / Time diphenhydramine Allergy Severe ITCHING Verified 04/21/24 13:41 [From Benadryl] lactose Allergy Intermediate Hives/Nause Verified 04/21/24 13:41 a morphine Allergy Intermediate Rash Verified 04/21/24 13:41 doxycycline AdvReac Intermediate vomitt Verified 04/21/24 13:41 amoxicillin AdvReac Vomiting Verified 04/21/24 13:41 Review of Systems <Serene Varela PA-C - Last Filed: 05/04/24 11:44> Constitutional Constitutional: Denies chills, Reports fatigue, Denies fever(s), Denies frequent falls, Reports lethargy and Denies weakness Eyes Eyes: Denies change in vision, Denies eye discharge, Denies irritation and Denies loss of vision ENT Ears, Nose, Mouth, and Throat: Denies change in voice, Denies dizziness, Denies neck pain, Denies sore throat and Denies throat swelling Cardiovascular Cardiovascular: Denies chest pain, Denies irregular heart rhythm, Reports lightheadedness, Denies palpitations, Denies dyspnea, Denies dyspnea on exertion and Denies orthopnea Respiratory Respiratory: Denies cough, Denies dyspnea, Denies dyspnea on exertion and Denies wheezing Gastrointestinal Gastrointestinal: Denies abdominal pain, Denies change in bowel habits, Denies diarrhea, Reports nausea and Reports vomiting Musculoskeletal Musculoskeletal: Denies neck pain and Denies numbness Integumentary/Breasts Skin/Breast: Denies pruritus, Denies erythema, Denies rash and Denies wounds Neurologic Neurologic: Denies behavioral changes, Denies confusion, Denies dizziness, Denies frequent falls, Denies loss of vision, Denies numbness and Denies weakness Psychiatric Psychiatric: Denies anxiety, Denies behavioral changes, Denies confusion, Denies depression, Denies homicidal ideation and Denies suicidal ideation Endocrine Endocrine: Reports fatigue, Denies flushing and Denies palpitations Hematologic/Lymphatic Hematologic/Lymphatic: Denies easy bruising Allergic/Immunologic Allergic/Immunologic: Denies urticaria, Denies throat swelling and Denies wheezing Patient History <Serene Varela PA-C - Last Filed: 05/04/24 11:44> Medical History Bordetella parapertussis infection Acute pancreatitis Candidal vaginitis Chronic salpingitis Painful menstrual periods (~2020) Irregular menstrual cycle (~2020) Heavy menstrual period (~2018) Ovarian cyst Endometriosis (~2020) Chlamydia infection (~2020) Surgical History Lymphangioma Hx of laparoscopy (07/11/22) Anesthesia S/P ACL reconstruction (~09/11/21) TOA (tubo-ovarian abscess) (~10/01/21) Family History Granddaughter Colon cancer Diabetes mellitus Grandmother Breast cancer Grandmother Endometriosis H/O oophorectomy Congestive heart failure Melanoma Stroke Uncle Diabetes mellitus Down syndrome Mother Skin cancer Social History marital status: number of children: 0 household members: spouse lives independently: Yes caregiver/support person: No housing: house pets and animals: Yes (dog) education level: vocational occupational status: employed 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) special amber needs: No travel history: recent (domestic only) seatbelt use: always helmet use: Yes water heater temp set < 120 deg: Yes working smoke detector in home: Yes fire extinguisher in home: Yes carbon monox detector in home: Yes firearms in home: No do you feel safe at home: Yes Smoking Status: Never smoker second hand exposure: No alcohol intake: former (occasional glass wine when not ) substance use type: marijuana (counseled not to use while /) during the past year weight has: other (lost ~35 lb w/ pancreatitis last year, back to normal weight) well-balanced diet: daily or most days daily servings fruits/ve or more times/day caffeine: Yes (aware of 200mg limit) Type(s) of exercise: none Smoking Status: Never smoker tobacco type: vaping alcohol intake frequency: holidays/special occasions only Alcohol type: wine Substance Use Type: does not use Exam <Serene Varela PA-C - Last Filed: 05/04/24 11:44> Narrative Exam Narrative: Const General:?cooperative, healthy appearing and comfortable [facility] Head:?normal to inspection Ears:?hearing grossly normal bilaterally Nose:?external nose normal Face and sinus:?normal facial exam and sinuses nontender Mouth:?oral mucosae normal Throat:?posterior oropharynx normal Eyes General:?appearance normal, both eyes and all related structures Neck Neck:?normal visual inspection and no lymphadenopathy noted Resp Effort & Inspection:?normal respiratory effort Auscultation:?clear to auscultation bilaterally Cardio Rate:?regular rate Rhythm:?regular rhythm Neuro General:?patient alert, patient awake and patient oriented x3 Initial Vital Signs Initial Vital Signs: Vital Signs Temperature 98.2 F 04/27/24 13:25 Pulse Rate 78 04/27/24 13:25 Respiratory Rate 18 04/27/24 13:25 Blood Pressure 118/69 04/27/24 13:25 Pulse Oximetry 100 04/27/24 13:25 Oxygen Delivery Method Room Air 04/27/24 13:25 <Jon Domínguez MD - Last Filed: 05/12/24 07:36> Initial Vital Signs Initial Vital Signs: Vital Signs Temperature 98.2 F 04/27/24 13:25 Pulse Rate 78 04/27/24 13:25 Respiratory Rate 18 04/27/24 13:25 Blood Pressure 118/69 04/27/24 13:25 Pulse Oximetry 100 04/27/24 13:25 Oxygen Delivery Method Room Air 04/27/24 13:25 Course <Serene Varela PA-C - Last Filed: 05/04/24 11:44> Orders Ordered: Discontinued Medications Sodium Chloride (Normal Saline 0.9%) 1,000 mls @ 1,000 mls/hr IV BOLUS ONE Stop: 04/27/24 15:08 Last Infusion: 04/27/24 15:21 Dose: Infused Documented By: Admin: 04/27/24 14:15 Dose: 1,000 mls/hr Documented By: AUSTIN Metoclopramide HCl (Metoclopramide 10 Mg/2 Ml Inj) 10 mg IV NOW ONE Stop: 04/27/24 14:50 Last Admin: 04/27/24 14:52 Dose: 10 mg Documented By: AUSTIN Ondansetron HCl (Ondansetron 4 Mg/2 Ml Inj) 4 mg IV NOW PRN PRN Reason: Nausea And Vomiting Last Admin: 04/27/24 14:15 Dose: 4 mg Documented By: AUSTIN Ondansetron HCl (Ondansetron 4 Mg Odt) 4 mg SL NOW PRN PRN Reason: Nausea And Vomiting Vital Signs Vital signs: Vital Signs - 8 hr 04/27/24 13:25 04/27/24 15:36 Temperature 98.2 F Pulse Rate 78 69 Respiratory Rate 18 Blood Pressure 118/69 101/51 L Pulse Oximetry 100 98 Oxygen Delivery Method Room Air Room Air <Jon Domínguez MD - Last Filed: 05/12/24 07:36> Orders Ordered: Discontinued Medications Sodium Chloride (Normal Saline 0.9%) 1,000 mls @ 1,000 mls/hr IV BOLUS ONE Stop: 04/27/24 15:08 Last Infusion: 04/27/24 15:21 Dose: Infused Documented By: Admin: 04/27/24 14:15 Dose: 1,000 mls/hr Documented By: AUSTIN Metoclopramide HCl (Metoclopramide 10 Mg/2 Ml Inj) 10 mg IV NOW ONE Stop: 04/27/24 14:50 Last Admin: 04/27/24 14:52 Dose: 10 mg Documented By: AUSTIN Ondansetron HCl (Ondansetron 4 Mg/2 Ml Inj) 4 mg IV NOW PRN PRN Reason: Nausea And Vomiting Last Admin: 04/27/24 14:15 Dose: 4 mg Documented By: AUSTIN Ondansetron HCl (Ondansetron 4 Mg Odt) 4 mg SL NOW PRN PRN Reason: Nausea And Vomiting Vital Signs Vital signs: Vital Signs - 8 hr 04/27/24 13:25 04/27/24 15:36 Temperature 98.2 F Pulse Rate 78 69 Respiratory Rate 18 Blood Pressure 118/69 101/51 L Pulse Oximetry 100 98 Oxygen Delivery Method Room Air Room Air MDM - Nausea/Vomiting/Diarrhea <Serene Varela PA-C - Last Filed: 05/04/24 11:44> Lab Data 04/27/24 13:50 04/27/24 13:50 Labs: Lab Results 04/27/24 Range/Units 13:50 WBC 11.0 (4.5-11.0) X10^3/uL RBC 4.25 (4.0-5.2) X10^6/uL Hgb 12.7 (12.0-16.0) g/dL Hct 36.9 (36-46) % MCV 87.0 (80-100) fL MCH 29.9 (26-34) PG MCHC 34.4 (30-36) % RDW 13.7 (11.6-14.8) % Plt Count 312 (150-400) X10^3/uL Neut % (Auto) 75.1 H (50-75) % Lymph % (Auto) 16.3 L (25-40) % [place] % (Auto) 6.6 (3-14) % Eos % (Auto) 1.6 L (2-4) % Baso % (Auto) 0.4 (0-2) % Neut # (Auto) 8300 H (3298-1898) /uL Lymph # (Auto) 1800 (0290-6813) /uL [place] # (Auto) 700 (0-900) /uL Eos # (Auto) 200 (0-450) /uL Baso # (Auto) 0 (0-100) /uL Sodium 136 L (137-145) mmol/L Potassium 3.5 (3.4-5.1) mmol/L Chloride 106 (98-107) mmol/L Carbon Dioxide 22 (22-32) mmol/L BUN 11 (7-17) mg/dL Creatinine 0.71 (0.52-1.04) mg/dL Estimated GFR > 60 (>60) mL/min BUN/Creatinine Ratio 15.5 (6-22) Glucose 86 (70-100) mg/dL Calcium 9.1 (8.4-10.2) mg/dL Total Bilirubin 0.7 (0.2-1.3) mg/dL AST 41 H (14-36) IU/L ALT 18 (<35) IU/L Alkaline Phosphatase 63 (38-126) U/L Total Protein 6.8 (6.3-8.2) g/dL Albumin 4.3 (3.5-5.0) g/dL Globulin 2.5 (1.7-4.1) g/dL Albumin/Globulin Ratio 1.7 (1.0-2.8) Lipase 74 (23-300) U/L Urine Dip Bedside Urine Glucose Negative Bedside Urine Bilirubin - Negative Bedside Urine Ketone - Negative Urine Specific [place] 1.015 Bedside Urine Occult Blood - Negative Bedside Urine Protein - Negative Bedside Urine Urobilinogen - Negative Bedside Urine Nitrite - Negative Bedside Urine Leukocytes - Negative Esterase MDM Narrative Medical decision making narrative: 19-year-old female who is 8 weeks presents to the ED with 3 days of nausea and vomiting. Concern for dehydration versus hyperemesis gravidarum versus electrolyte derangement versus other. Patient was given some Zofran with minimal relief in the ED. Will obtain labs, give IV fluids and Reglan. Patient's symptoms improved with the Reglan and fluids. Labs within normal limits. Prescribed Reglan. Recommend follow-up with OB as soon as possible. ED return precautions discussed with patient. Patient verbalized understanding. Medical records reviewed: Yes <Jon Domínguez MD - Last Filed: 05/12/24 07:36> Lab Data Labs: Lab Results 04/27/24 Range/Units 13:50 WBC 11.0 (4.5-11.0) X10^3/uL RBC 4.25 (4.0-5.2) X10^6/uL Hgb 12.7 (12.0-16.0) g/dL Hct 36.9 (36-46) % MCV 87.0 (80-100) fL MCH 29.9 (26-34) PG MCHC 34.4 (30-36) % RDW 13.7 (11.6-14.8) % Plt Count 312 (150-400) X10^3/uL Neut % (Auto) 75.1 H (50-75) % Lymph % (Auto) 16.3 L (25-40) % [place] % (Auto) 6.6 (3-14) % Eos % (Auto) 1.6 L (2-4) % Baso % (Auto) 0.4 (0-2) % Neut # (Auto) 8300 H (0541-4301) /uL Lymph # (Auto) 1800 (5153-2400) /uL [place] # (Auto) 700 (0-900) /uL Eos # (Auto) 200 (0-450) /uL Baso # (Auto) 0 (0-100) /uL Sodium 136 L (137-145) mmol/L Potassium 3.5 (3.4-5.1) mmol/L Chloride 106 (98-107) mmol/L Carbon Dioxide 22 (22-32) mmol/L BUN 11 (7-17) mg/dL Creatinine 0.71 (0.52-1.04) mg/dL Estimated GFR > 60 (>60) mL/min BUN/Creatinine Ratio 15.5 (6-22) Glucose 86 (70-100) mg/dL Calcium 9.1 (8.4-10.2) mg/dL Total Bilirubin 0.7 (0.2-1.3) mg/dL AST 41 H (14-36) IU/L ALT 18 (<35) IU/L Alkaline Phosphatase 63 (38-126) U/L Total Protein 6.8 (6.3-8.2) g/dL Albumin 4.3 (3.5-5.0) g/dL Globulin 2.5 (1.7-4.1) g/dL Albumin/Globulin Ratio 1.7 (1.0-2.8) Lipase 74 (23-300) U/L Urine Dip Bedside Urine Glucose Negative Bedside Urine Bilirubin - Negative Bedside Urine Ketone - Negative Urine Specific [place] 1.015 Bedside Urine Occult Blood - Negative Bedside Urine Protein - Negative Bedside Urine Urobilinogen - Negative Bedside Urine Nitrite - Negative Bedside Urine Leukocytes - Negative Esterase Discharge Plan Departure Patient Disposition: Home Clinical Impression: Hyperemesis gravidarum Instructions: DI for Hyperemesis Gravidarum Activity Restrictions/Additional Instructions: You were evaluated in the ED today for nausea and vomiting during . You were given some IV fluids, Zofran, Reglan for your symptoms. Your symptoms improved well with the Reglan. You are being prescribed Reglan to continue taking at home as needed. Please follow-up with your OBGYN as soon as possible. Return to the ED if you have worsening symptoms, persistently vomiting. Prescriptions: New metoclopramide HCl [Reglan] 10 mg tablet 10 mg PO Q6H PRN (Reason: nausea and vomiting) Qty: 30 0RF No Action ondansetron 4 mg tablet,disintegrating 4 mg PO Q8H PRN (Reason: nausea and vomiting) Qty: 30 2RF pyridoxine (vitamin B6) 50 mg tablet 50 mg PO BID-QID Qty: 90 2RF doxylamine succinate 25 mg tablet 25 mg PO BEDTIME PRN (Reason: nausea) Qty: 30 2RF promethazine 25 mg suppository 25 mg AL Q6H PRN (Reason: nausea and vomiting) Qty: 12 0RF PNV cmb#95-ferrous fumarate-FA [ Multivitamins] 28 mg iron- 800 mcg tablet 1 tab PO DAILY Referrals: ProviderFelton [Primary Care Provider] - Stand Alone Forms: Patient Portal/API ED Sign-out <Jon Domínguez MD - Last Filed: 05/12/24 07:36> Cosign ED Attending Cosignature Attestation: I was immediately available in the department for consultation. ?This documentation has been reviewed and I agree with assessment and plan. Supervised by Jon Domínguez MD
== END 2024-04-27 15:36 | disposition home or self-care (01) ==
PROVIDERS: Emergency Provider Student in an Organized Health Care Education/Training Program
DX: O21.0 Mild hyperemesis gravidarum (principal); Z3A.08 8 weeks gestation of pregnancy
CPT/HCPCS: 36415; 80053; 81003; 83690; 85025; 96361; 96374; 96375; 99284; J2405; J2765

== ENCOUNTER → 2024-05-18 13:21 | Outpatient (CLI) | payer OTHER, SELFPAY ==
[2023-05-29 05:46] VITALS: BMI 28.3
[2024-05-18 14:29] LABS: Natera Collection Specimen Collected
== END ==
PROVIDERS: Referring Provider Family Medicine; Visit Provider Family Medicine
DX: Z34.01 Encounter for supervision of normal first pregnancy, first trimester (principal)
CPT/HCPCS: 36415

== ENCOUNTER 2024-06-02 21:56 | Emergency (ER) | payer OTHER, SELFPAY ==
[2023-05-29 05:46] VITALS: BMI 28.3
[2024-06-02 22:01] VITALS: BP 125/69; PULSE 82; RESP 14; TEMP 36.6; O2SAT 99; BMI 28.3
--- NOTE | 2024-06-02 22:19 | EKG_ITS ---
[address] [address] Test Date: 2024-06-02 Pat Name: Adeline Zuleta Department: Room: Gender: Female [employer]ux Plant Operator: MARIA DEL ROSARIO : 2005 Requested By: Order Number: [id number] Reading MD: Cosmo Elizabeth MD Measurements Intervals [place] Rate: 65 P: 53 ME: 166 QRS: 71 QRSD: 80 T: 37 QT: 408 QTc: 424 Interpretive Statements Normal sinus rhythm with sinus arrhythmia Electronically Signed On 06-03-2024 7:38:45 PDT by Cosmo Elizabeth MD
--- NOTE | 2024-06-02 22:20 | DI.RAD.S_ITS ---
PROCEDURE: XR CHEST 1V INDICATIONS: chest pain TECHNIQUE: One view of the chest was acquired. COMPARISON: [facility], CR, XR CHEST 2V, 03/18/2023, 16:22. [facility], CR, XR CHEST 2V, 03/16/2023, 13:32. FINDINGS: Surgical changes and devices: None. Lungs and pleura: Lungs are clear. No pleural effusions or pneumothorax. Mediastinum: Mediastinal contours appear normal. Heart size is normal. Bones and chest wall: No suspicious bony lesions. Overlying soft tissues appear unremarkable. IMPRESSION: No acute cardiopulmonary abnormality is seen. Dictated by: Red Munoz M.D. on 06/02/2024 at 23:03 Approved by: Red Munoz M.D. on 06/02/2024 at 23:03
[2024-06-02 22:32] VITALS: PULSE 63; RESP 14; O2SAT 99
[2024-06-02 22:38] LABS: INR 0.8 (0.9-1.3); Prothrombin Time 9.7 SECONDS (9.4-12.5)
[2024-06-02 22:39] LABS: Add Manual Diff / Slide Review NO; Basophils Absolute Auto 100 /uL (0-100); Basophils Percent Auto 0.6 % (0-2); Eosinophils Absolute Auto 500 /uL (0-450); Eosinophils Percent Auto 3.9 % (2-4); Hematocrit 36.9 % (36-46); Hemoglobin 12.7 g/dL (12.0-16.0); Lymphocytes Absolute Auto 3000 /uL (1100-4500); Lymphocytes Percent Auto 22.8 % (25-40); Mean Corpuscular HGB Conc 34.4 % (30-36); Mean Corpuscular Hemoglobin 30.2 PG (26-34); Mean Corpuscular Volume 87.7 fL (80-100); Monocytes Absolute Auto 900 /uL (0-900); Monocytes Percent Auto 6.6 % (3-14); Neutrophils Absolute Auto 8600 /uL (1500-7000); Neutrophils Percent Auto 66.1 % (50-75); Platelet Count 326 X10^3/uL (150-400); Red Blood Cell Count 4.21 X10^6/uL (4.0-5.2); Red Cell Distribution Width 13.5 % (11.6-14.8)
[2024-06-02 22:40] LABS: PTT Partial Thromboplastin Tim 32 SECONDS (25.1-36.5)
[2024-06-02 22:43] LABS: Alanine Aminotransferase 16 IU/L (<35); Albumin 4.2 g/dL (3.5-5.0); Albumin Globulin Ratio 1.5 (1.0-2.8); Alkaline Phosphatase 92 U/L (38-126); Aspartate Aminotransferase 21 IU/L (14-36); BUN Creatinine Ratio 15.5 (6-22); Bilirubin Total 0.4 mg/dL (0.2-1.3); Blood Urea Nitrogen 9 mg/dL (7-17); Calcium 9.6 mg/dL (8.4-10.2); Carbon Dioxide 22 mmol/L (22-32); Chloride 105 mmol/L (98-107); Creatine Kinase 64 U/L (30-135); Estimated Glomerular Filt Rate > 60 mL/min (>60); Globulin 2.8 g/dL (1.7-4.1); Glucose 84 mg/dL (70-100); HEMOLYSIS < 15 (0-50); Lipase 120 U/L (23-300); Potassium 3.5 mmol/L (3.4-5.1); Sodium 134 mmol/L (137-145)
[2024-06-02 22:45] VITALS: BP 126/72; PULSE 77; RESP 20; O2SAT 99
[2024-06-02 22:55] LABS: NT-proBNP (BNP-Adult 18+) 52 pg/mL (<125); Troponin I < 0.012 ng/mL (0.01-0.034)
[2024-06-02 23:00] VITALS: BP 124/70; PULSE 78; RESP 16; O2SAT 98
--- NOTE | 2024-06-02 23:28 | EKG_ITS ---
[address] [address] Test Date: 2024-06-02 Pat Name: Adeline Zuleta Department: [facility] Room: Gender: Female Hims Coder: MALATHI : 2005 Requested By: Order Number: [id number] Reading MD: Cosmo Elizabeth MD Measurements Intervals [place] Rate: 65 P: 58 ND: 166 QRS: 74 QRSD: 80 T: 39 QT: 430 QTc: 447 Interpretive Statements Normal sinus rhythm with sinus arrhythmia Anterior infarct , age undetermined Electronically Signed On 06-03-2024 7:38:48 PDT by Cosmo Elizabeth MD
[2024-06-02 23:30] VITALS: PULSE 79; RESP 16
[2024-06-02 23:53] VITALS: BP 110/57; PULSE 76; RESP 17; O2SAT 98
[2024-06-03] VITALS: BP 112/59; PULSE 82; RESP 17; O2SAT 98
[2024-06-03 00:30] VITALS: BP 108/56; PULSE 67; RESP 18; O2SAT 98
--- NOTE | 2024-06-03 00:34 | PC.NURSE ---
Patient states she would like to go home. Patient suggested to stay and be seen and assessed by provider. Patient states I'm sure since she hasn't been in, everythiing must be fine. Patient educated on risks of leaving, patient refuses to stay and states she will follow-up with OB in the morning. Patient instructed to return with worsening symptoms or concerns, patient verbalizes understanding.
--- NOTE | 2024-06-03 04:15 | ED_ITS ---
HPI - Chest Pain General Chief Complaint: Chest Pain Stated Complaint: 13 weeks , chest tightness, sob Time Seen by Provider: 06/03/24 01:16 Source: patient Mode of arrival: Ambulatory Limitations: no limitations Related Data Previous Rx's Medication Instructions Recorded doxylamine succinate 25 mg tablet 25 mg PO BEDTIME PRN nausea #30 04/21/24 tabs ondansetron 4 mg disintegrating 4 mg PO Q8H PRN nausea and 04/21/24 tablet vomiting #30 tabs pyridoxine (vitamin B6) 50 mg 50 mg PO BID-QID #90 tabs 04/21/24 tablet metoclopramide HCl 10 mg tablet 10 mg PO Q6H PRN nausea and 04/27/24 (Reglan) vomiting #30 tabs promethazine 25 mg rectal 25 mg MO Q6H PRN nausea and 05/06/24 suppository vomiting #12 ea folic acid 400 mcg tablet 0.4 mg PO DAILY #90 tabs 05/18/24 elizabeth (Zingiber officinalis) 500 500 mg PO BID #60 caps 05/18/24 mg capsule Allergies Allergy/AdvReac Type Severity Reaction Status Date / Time diphenhydramine Allergy Severe ITCHING Verified 05/18/24 12:22 [From Benadryl] lactose Allergy Intermediate Hives/Nause Verified 05/18/24 12:22 a morphine Allergy Intermediate Rash Verified 05/18/24 12:22 doxycycline AdvReac Intermediate vomitt Verified 05/18/24 12:22 amoxicillin AdvReac Vomiting Verified 05/18/24 12:22 Patient History Medical History Bordetella parapertussis infection Acute pancreatitis Candidal vaginitis Chronic salpingitis Painful menstrual periods (~2020) Irregular menstrual cycle (~2020) Heavy menstrual period (~2018) Ovarian cyst Endometriosis (~2020) Chlamydia infection (~2020) Surgical History Lymphangioma Hx of laparoscopy (07/11/22) Anesthesia S/P ACL reconstruction (~09/11/21) TOA (tubo-ovarian abscess) (~10/01/21) Family History Granddaughter Colon cancer Diabetes mellitus Grandmother Breast cancer Grandmother Endometriosis H/O oophorectomy Congestive heart failure Melanoma Stroke Uncle Diabetes mellitus Down syndrome Mother Skin cancer Social History marital status: number of children: 0 household members: spouse lives independently: Yes caregiver/support person: No housing: house pets and animals: Yes (dog) education level: vocational occupational status: employed and student current occupational exposures/hazards: Yes ([employer]) special amber needs: No travel history: recent (domestic only) seatbelt use: always helmet use: Yes water heater temp set < 120 deg: Yes working smoke detector in home: Yes fire extinguisher in home: Yes carbon monox detector in home: Yes firearms in home: No do you feel safe at home: Yes Smoking Status: Never smoker second hand exposure: No alcohol intake: former (occasional glass wine when not ) substance use type: marijuana (counseled not to use while /) during the past year weight has: other (lost ~35 lb w/ pancreatitis last year, back to normal weight) well-balanced diet: daily or most days daily servings fruits/ve or more times/day caffeine: Yes (aware of 200mg limit) Type(s) of exercise: none Smoking Status: Never smoker tobacco type: vaping alcohol intake frequency: holidays/special occasions only Alcohol type: other Substance Use Type: does not use Exam Initial Vital Signs Initial Vital Signs: Vital Signs Temperature 97.9 F 06/02/24 22:01 Pulse Rate 82 06/02/24 22:01 Respiratory Rate 14 06/02/24 22:01 Blood Pressure 125/69 06/02/24 22:01 Pulse Oximetry 99 06/02/24 22:01 Oxygen Delivery Method Room Air 06/02/24 22:01 Course Orders Ordered: ED Orders 06/02/24 20:10 Complete Blood Count AUTO DIFF Stat Comprehensive Metabolic Panel Stat Lipase Stat Magnesium Stat NT-proBNP (BNP-Adult 18+) Stat PTT Partial Thromboplastin Alex Stat Prothrombin Time INR Stat Troponin & CK Cardiac Panel Stat 06/02/24 22:20 XR chest 1V Stat EKG-12 Lead Stat 06/02/24 23:24 EKG-12 Lead Stat Discontinued Medications Aspirin (Aspirin 81 Mg Chew Tab) 324 mg PO NOW ONE Stop: 06/02/24 22:21 Last Admin: 06/02/24 22:41 Dose: Not Given Documented By: Sodium Chloride (Normal Saline 0.9%) 1,000 mls @ 1,000 mls/hr IV BOLUS ONE Stop: 06/02/24 23:21 Vital Signs Vital signs: Vital Signs - 8 hr 06/02/24 22:01 06/02/24 22:32 06/02/24 22:45 Temperature 97.9 F Pulse Rate 82 63 77 Respiratory Rate 14 14 20 Blood Pressure 125/69 Pulse Oximetry 99 99 99 Oxygen Delivery Method Room Air 06/02/24 22:45 06/02/24 23:00 06/02/24 23:00 Temperature Pulse Rate 78 Respiratory Rate 16 Blood Pressure 126/72 124/70 Pulse Oximetry 98 Oxygen Delivery Method 06/02/24 23:30 06/02/24 23:53 06/02/24 23:53 Temperature Pulse Rate 79 76 Respiratory Rate 16 17 Blood Pressure 110/57 L Pulse Oximetry 98 Oxygen Delivery Method 06/03/24 00:00 06/03/24 00:00 06/03/24 00:30 Temperature Pulse Rate 82 67 Respiratory Rate 17 18 Blood Pressure 112/59 L Pulse Oximetry 98 98 Oxygen Delivery Method 06/03/24 00:30 Temperature Pulse Rate Respiratory Rate Blood Pressure 108/56 L Pulse Oximetry Oxygen Delivery Method MDM - Chest Pain Lab Data 06/02/24 20:10 06/02/24 20:10 Labs: Lab Results 06/02/24 Range/Units 20:10 WBC 13.0 H (4.5-11.0) X10^3/uL RBC 4.21 (4.0-5.2) X10^6/uL Hgb 12.7 (12.0-16.0) g/dL Hct 36.9 (36-46) % MCV 87.7 (80-100) fL MCH 30.2 (26-34) PG MCHC 34.4 (30-36) % RDW 13.5 (11.6-14.8) % Plt Count 326 (150-400) X10^3/uL Neut % (Auto) 66.1 (50-75) % Lymph % (Auto) 22.8 L (25-40) % [place] % (Auto) 6.6 (3-14) % Eos % (Auto) 3.9 (2-4) % Baso % (Auto) 0.6 (0-2) % Neut # (Auto) 8600 H (5634-8126) /uL Lymph # (Auto) 3000 (1265-0587) /uL [place] # (Auto) 900 (0-900) /uL Eos # (Auto) 500 H (0-450) /uL Baso # (Auto) 100 (0-100) /uL PT 9.7 (9.4-12.5) SECONDS INR 0.8 L (0.9-1.3) APTT 32 (25.1-36.5) SECONDS Sodium 134 L (137-145) mmol/L Potassium 3.5 (3.4-5.1) mmol/L Chloride 105 (98-107) mmol/L Carbon Dioxide 22 (22-32) mmol/L BUN 9 (7-17) mg/dL Creatinine 0.58 (0.52-1.04) mg/dL Estimated GFR > 60 (>60) mL/min BUN/Creatinine Ratio 15.5 (6-22) Glucose 84 (70-100) mg/dL Calcium 9.6 (8.4-10.2) mg/dL Magnesium 2.0 (1.6-2.3) mg/dL Total Bilirubin 0.4 (0.2-1.3) mg/dL AST 21 (14-36) IU/L ALT 16 (<35) IU/L Alkaline Phosphatase 92 (38-126) U/L Total Creatine Kinase 64 (30-135) U/L Troponin I < 0.012 (0.01-0.034) ng/mL NT-Pro-B Natriuret Pep 52 (<125) pg/mL Total Protein 7.0 (6.3-8.2) g/dL Albumin 4.2 (3.5-5.0) g/dL Globulin 2.8 (1.7-4.1) g/dL Albumin/Globulin Ratio 1.5 (1.0-2.8) Lipase 120 (23-300) U/L Imaging Data Chest x-ray: Radiologist's Impression: [address] [address] XRay Report Signed Patient: Adeline Zuleta MR#: [id number] : 2005 Acct:[id number] Age/Sex: 19 / F Date of Service: 06/02/24 Loc: ED Accession Number: [id number] Procedure: XR chest 1V Ordering Provider: Tory Edgar D.O. PROCEDURE: XR CHEST 1V INDICATIONS: chest pain TECHNIQUE: One view of the chest was acquired. COMPARISON: [facility], CR, XR CHEST 2V, 03/18/2023, 16:22. [facility], CR, XR CHEST 2V, 03/16/2023, 13:32. FINDINGS: Surgical changes and devices: None. Lungs and pleura: Lungs are clear. No pleural effusions or pneumothorax. Mediastinum: Mediastinal contours appear normal. Heart size is normal. Bones and chest wall: No suspicious bony lesions. Overlying soft tissues appear unremarkable. IMPRESSION: No acute cardiopulmonary abnormality is seen. Dictated by: Red Munoz M.D. on 06/02/2024 at 23:03 Approved by: Red Munoz M.D. on 06/02/2024 at 23:03 ECG Data Attestation: I personally reviewed and interpreted this ECG as follows: Interpretation: Sinus rhythm sinus rhythm rate of 65 MO 166 QRS 80 QTC 424, no prior for comparison. EKG 2. Sinus rhythm sinus arrhythmia, rate of 65 MO 166 QRS 80 QTC 447. Patient appears to have some motion artifact in V3 otherwise similar appearing to prior EKG Discharge Plan Departure Patient Disposition: Left Without Being Seen Clinical Impression: Patient left without being seen Prescriptions: No Action ondansetron 4 mg tablet,disintegrating 4 mg PO Q8H PRN (Reason: nausea and vomiting) Qty: 30 2RF pyridoxine (vitamin B6) 50 mg tablet 50 mg PO BID-QID Qty: 90 2RF doxylamine succinate 25 mg tablet 25 mg PO BEDTIME PRN (Reason: nausea) Qty: 30 2RF elizabeth (Zingiber officinalis) 500 mg capsule 500 mg PO BID Qty: 60 2RF folic acid 400 mcg tablet 0.4 mg PO DAILY Qty: 90 2RF promethazine 25 mg suppository 25 mg MO Q6H PRN (Reason: nausea and vomiting) Qty: 12 0RF metoclopramide HCl [Reglan] 10 mg tablet 10 mg PO Q6H PRN (Reason: nausea and vomiting) Qty: 30 0RF
== END 2024-06-03 01:16 | disposition left against medical advice (07) ==
PROVIDERS: Emergency Provider Emergency Medicine
DX: R07.9 Chest pain, unspecified (principal); Z3A.13 13 weeks gestation of pregnancy
CPT/HCPCS: 36415; 71045; 80053; 82550; 83690; 83735; 83880; 84484; 85025; 85610; 85730; 93005; 93010; 99284

== ENCOUNTER → 2024-07-07 09:24 | Outpatient (CLI) | payer OTHER, SELFPAY ==
[2024-06-10 16:01] VITALS: BMI 28.3
[2024-07-11 11:38] LABS: Chlamydia trachomatis Negative (Negative); Mycoplasma genitalium Negative (Negative); Neisseria gonorrhoeae Negative (Negative)
== END ==
PROVIDERS: Referring Provider Family Medicine; Visit Provider Family Medicine
DX: O26.899 Other specified pregnancy related conditions, unspecified trimester (principal); N89.8 Other specified noninflammatory disorders of vagina
CPT/HCPCS: 87210; 87491; 87563; 87591

== ENCOUNTER → 2024-07-09 13:05 | Outpatient (CLI) | payer OTHER, SELFPAY ==
[2024-06-10 16:01] VITALS: BMI 28.3
[2024-07-09 13:46] LABS: Appearance Urine UA CLEAR; Bilirubin Urine UA NEGATIVE (NEGATIVE); Color Urine UA YELLOW; Glucose Urine UA NEGATIVE (Negative); Ketones Urine UA NEGATIVE (NEGATIVE); Leukocyte Esterase Urine UA NEGATIVE (NEGATIVE); Nitrite Urine UA NEGATIVE (Negative); Occult Blood Urine UA NEGATIVE (Negative); Protein Urine UA NEGATIVE (Negative); Urobilinogen Urine UA 0.2 E.U./dL (0.2)
[2024-07-09 13:57] LABS: pH Urine UA 6.5 (4.5-8.0)
[2024-07-09 14:04] LABS: Amorphous Sediment Urine 3+; Bacteria Urine None Seen; Culture Indicated Urine Cult Not Indicated; RBC Urine None Seen (0-5/HPF); Squamous Epithelial Cell Urine 1-5 /HPF (0-5/HPF); Urine Volume 10mL (spun); WBC Urine 1-5/HPF (0-5/HPF)
== END ==
PROVIDERS: Referring Provider Family Medicine; Visit Provider Family Medicine
DX: O26.892 Other specified pregnancy related conditions, second trimester (principal); N89.8 Other specified noninflammatory disorders of vagina; O26.899 Other specified pregnancy related conditions, unspecified trimester; R10.2 Pelvic and perineal pain
CPT/HCPCS: 81001

== ENCOUNTER → 2024-08-04 06:43 | Outpatient (CLI) | payer OTHER, SELFPAY ==
[2024-06-10 16:01] VITALS: BMI 28.3
--- NOTE | 2024-08-04 06:44 | DI.US.S_ITS ---
PROCEDURE: US OB >= 14 WEEKS FETUS INDICATIONS: anatomy OUTSIDE/PRIOR DATING DATA: Last menstrual period (LMP): Unknown. LMP-based estimated date of delivery (FREDRICK): Unknown. First dating scan (date and location): 04/21/2024. Estimated date of delivery (FREDRICK) from first dating scan: 12/07/2024. The calculations are made using the ultrasound FREDRICK of 12/07/2024. TECHNIQUE: Real-time scanning was performed of the fetus, with image documentation and biometric measurements. COMPARISON: None. FINDINGS: General: A single living intrauterine gestation is present. Presentation: Vertex. Placenta: Placental position is posterior , without previa. Amniotic fluid index: 16.8 cm, normal range is 5-24 cm. Single deepest vertical pocket is 4.8 cm. heart rate: 132 beats per minute. Maternal cervical canal: 4.9 cm long. Normal lower limit is 2.5 cm. biometrics: Biparietal diameter: 5.5 cm 22 weeks 6 days Head circumference: 20.9 cm 23 weeks 0 days Abdominal circumference: 18.0 cm 22 weeks 6 days Femur length: 3.9 cm 22 weeks 3 days Clinically estimated gestational age: 22 weeks 1 day Composite gestational age from present scan: 22 weeks 6 days Estimated weight and percentile: 527 g 73rd percentile Anatomic survey: Neuro: Ventricles are non-dilated at less than 10 mm. Cisterna magna is normal at 3-11 mm. Cerebellum is normal in size and morphology. Nuchal skin fold: Normal at less than 6 mm between 14-21 weeks gestational age. Face: Nose and lips, facial profile are normal. Spine: No evidence for spina bifida. Heart: 4-chambered heart is present, with normal ventricular outflow tracts. Diaphragm: Diaphragm is intact. Stomach: Left-sided stomach is present. Kidneys: No hydronephrosis. Normal is less than 5 mm in 2nd trimester, less than 7 mm in 3rd trimester. Cord: 3-vessel cord has orthotopic insertion. Bladder: Normal in size. Extremities: All 4 extremities identified. IMPRESSION: Single live intrauterine with gestational age today of 22 weeks 5 days. Anatomy is within normal limits. We strive to produce accurate, complete, and clear reports of imaging services. To assist us in improving patient care, this report was composed using standard report templates and voice recognition software. Therefore, it may contain abnormal punctuation, insertions and/or omissions. Occasional wrong-word or sound-alike substitutions may occur. Though we review the report and make efforts to correct it, we do recommend that the report be read carefully in proper context to recognize any text inaccuracies. Dictated by: Bree Andre M.D. on 08/04/2024 at 13:52 Approved by: Bree Andre M.D. on 08/04/2024 at 13:54
== END ==
LOC: US 06:43
PROVIDERS: Referring Provider Family Medicine; Visit Provider Family Medicine
DX: Z34.02 Encounter for supervision of normal first pregnancy, second trimester (principal); Z3A.22 22 weeks gestation of pregnancy
CPT/HCPCS: 76811

== ENCOUNTER 2024-08-13 14:18 | Outpatient (CLI) | payer OTHER, SELFPAY ==
[2024-06-10 16:01] VITALS: BMI 28.3
[2024-08-13 14:50] LABS: Appearance Urine UA CLEAR; Bilirubin Urine UA NEGATIVE (NEGATIVE); Color Urine UA YELLOW; Glucose Urine UA NEGATIVE (Negative); Ketones Urine UA NEGATIVE (NEGATIVE); Leukocyte Esterase Urine UA NEGATIVE (NEGATIVE); Nitrite Urine UA NEGATIVE (Negative); Occult Blood Urine UA NEGATIVE (Negative); Protein Urine UA NEGATIVE (Negative); Specific Gravity Urine UA 1.015 (1.000-1.035); Urobilinogen Urine UA 0.2 E.U./dL (0.2)
[2024-08-13 15:09] LABS: Bacteria Urine None Seen; RBC Urine 0-1/HPF (0-5/HPF); Urine Volume 10mL (spun); WBC Urine None Seen (0-5/HPF)
[2024-08-13 15:10] LABS: Amorphous Sediment Urine 2+; Culture Indicated Urine Specimen Cultured; Squamous Epithelial Cell Urine 5-10 /HPF (0-5/HPF)
--- NOTE | 2024-08-13 17:18 | P.TNLD_ITS ---
Visit Information Visit Information Date of evaluation: 08/13/24 Primary OB Provider: Narinder Omalley Reason for Evaluation: Yes rule out labor Comments/Additional reasons for admission: 19-year-old at [place] 23+3 weeks presenting to L&D with complaint of pelvic cramping throughout the day. 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 Endorses normal movement, denies vaginal bleeding or leakage of fluid. medically uncomplicated. [facility] Medical History Bordetella parapertussis infection Acute pancreatitis Candidal vaginitis Chronic salpingitis Painful menstrual periods (~2020) Irregular menstrual cycle (~2020) Heavy menstrual period (~2018) Ovarian cyst Endometriosis (~2020) Chlamydia infection (~2020) Surgical History Lymphangioma Hx of laparoscopy (07/11/22) Anesthesia S/P ACL reconstruction (~09/11/21) TOA (tubo-ovarian abscess) (~10/01/21) Family History Granddaughter Colon cancer Diabetes mellitus Grandmother Breast cancer Grandmother Endometriosis H/O oophorectomy Congestive heart failure Melanoma Stroke Uncle Diabetes mellitus Down syndrome Mother Skin cancer Social History marital status: number of children: 0 household members: spouse lives independently: Yes caregiver/support person: No housing: house pets and animals: Yes (dog) education level: vocational occupational status: employed and student current occupational exposures/hazards: Yes ([employer]) special amber needs: No travel history: recent seatbelt use: always helmet use: Yes water heater temp set < 120 deg: Yes working smoke detector in home: Yes fire extinguisher in home: Yes carbon monox detector in home: Yes firearms in home: No do you feel safe at home: Yes Smoking Status: Never smoker second hand exposure: No alcohol intake: former substance use type: marijuana during the past year weight has: other well-balanced diet: daily or most days daily servings fruits/ve or more times/day caffeine: Yes (aware of 200mg limit) Type(s) of exercise: none Objective Labs Labs: Laboratory Results - last 24 hr 08/13/24 14:30 Urine Color Yellow Urine Appearance Clear Urine pH 7.0 Ur Specific [place] 1.015 Urine Protein Negative Urine Glucose (UA) Negative Urine Ketones Negative Urine Occult Blood Negative Urine Nitrate Negative Urine Bilirubin Negative Urine Urobilinogen 0.2 Ur Leukocyte Esterase Negative Urine RBC 0-1/hpf Urine WBC None seen Ur Squamous Epith Cells 5-10 /hpf H Amorphous Sediment 2+ Urine Bacteria None seen Ur Culture Indicated? Specimen cultured Vol Urine Centrifuged 10ml (spun) Evaluation Evaluation Baseline heart rate: 140 Contraction Frequency (minutes): 30 Uterine Contraction Intensity: Mild Diagnosis, Plan/Disposition Final Diagnosis (1) Abdominal cramping affecting : Status: Acute (2) 23 weeks gestation of : Status: Acute Plan/Disposition Plan: 19-year-old at [place] 23+3 weeks here with pelvic cramping. Normal FHR on Doppler, too early gestation for NST. UA unremarkable. Cramping improved with rest and oral hydration. No bleeding or leakage of fluid to indicate abruption or labor. Discharge home with return precautions. Follow-up at scheduled OB visit. OB Disposition: home
== END 2024-08-13 16:08 | disposition home or self-care (01) ==
LOC: LABOR 14:33 → OB 08-16 10:33
PROVIDERS: Referring Provider Family Medicine; Visit Provider Student in an Organized Health Care Education/Training Program
DX: O26.892 Other specified pregnancy related conditions, second trimester (principal); R10.9 Unspecified abdominal pain; Z3A.23 23 weeks gestation of pregnancy
CPT/HCPCS: 59025; 81001; 87086; G0378; G0379

== ENCOUNTER → 2024-09-02 14:01 | Outpatient (CLI) | payer OTHER, SELFPAY ==
[2024-06-10 16:01] VITALS: BMI 28.3
[2024-09-02 16:24] LABS: GTT (PREG) 1 Hour PP 50gm Dose 108 mg/dL (76-139)
== END ==
LOC: LAB 14:02
PROVIDERS: Referring Provider Family Medicine; Visit Provider Family Medicine
DX: Z34.00 Encounter for supervision of normal first pregnancy, unspecified trimester (principal); Z3A.22 22 weeks gestation of pregnancy
CPT/HCPCS: 36415; 82950

== ENCOUNTER 2024-09-14 12:30 | Outpatient (CLI) | payer OTHER, SELFPAY ==
[2024-09-02 15:51] VITALS: BMI 28.3
--- NOTE | 2024-09-14 13:29 | P.TNLD_ITS ---
Visit Information Visit Information Date of evaluation: 09/14/24 Primary OB Provider: Narinder Omalley On-call OB Provider: Rei Hahn Comments/Additional reasons for admission: Patient is a 28 week primigravida who earlier today while at work experienced an episode of chills and dizziness associated with nausea and vomiting. The chills and nausea have subsided but she remains slightly dizzy. She presents today for evaluation. [facility] Medical History Bordetella parapertussis infection Acute pancreatitis Candidal vaginitis Chronic salpingitis Painful menstrual periods (~2020) Irregular menstrual cycle (~2020) Heavy menstrual period (~2018) Ovarian cyst Endometriosis (~2020) Chlamydia infection (~2020) Surgical History Lymphangioma Hx of laparoscopy (07/11/22) Anesthesia S/P ACL reconstruction (~09/11/21) TOA (tubo-ovarian abscess) (~10/01/21) Family History Granddaughter Colon cancer Diabetes mellitus Grandmother Breast cancer Grandmother Endometriosis H/O oophorectomy Congestive heart failure Melanoma Stroke Uncle Diabetes mellitus Down syndrome Mother Skin cancer Social History marital status: number of children: 0 household members: spouse lives independently: Yes caregiver/support person: No housing: house pets and animals: Yes (dog) education level: vocational occupational status: employed and student current occupational exposures/hazards: Yes ([employer]) special amber needs: No travel history: recent seatbelt use: always helmet use: Yes water heater temp set < 120 deg: Yes working smoke detector in home: Yes fire extinguisher in home: Yes carbon monox detector in home: Yes firearms in home: No do you feel safe at home: Yes Smoking Status: Never smoker second hand exposure: No alcohol intake: former substance use type: marijuana during the past year weight has: other well-balanced diet: daily or most days daily servings fruits/ve or more times/day caffeine: Yes (aware of 200mg limit) Type(s) of exercise: none Exam Const General: cooperative and comfortable Nutritional Appearance: average body habitus Orientation: alert, awake and oriented x3 HENMT Head: normal to inspection, normocephalic and atraumatic Ears: hearing grossly normal bilaterally Eyes General: appearance normal, both eyes and all related structures Conjunctivae: conjunctivae normal Sclera: sclerae normal EOM: EOM intact bilaterally Neck Neck: normal visual inspection Resp Effort & Inspection: normal respiratory effort and able to speak in complete sentences GI Inspection: normal to inspection Palpation: soft, no hepatosplenomegaly and tender (Minimal abdominal wall tenderness, epigastrium) Uterus Location (Fundal Height): 28 (Fundus is soft and nontender. movement palpable.) Evaluation Evaluation Baseline heart rate: 130 Variability: Moderate (11-25) monitor accelerations: Present Monitor Decelerations: Absent Status: Category l Diagnosis, Plan/Disposition Final Diagnosis (1) Nausea/vomiting in : Status: Acute (2) Acid reflux: Status: Acute Plan/Disposition Plan: The cause of the patient's episode of dizziness, nausea and vomiting, and chills is uncertain. The episode may have been associated with hypoglycemia or may possibly be part of a viral prodrome. At present however the patient is not having any significant nausea or vomiting and her dizziness is minimal. Epigastric discomfort is superficial and musculoskeletal. Will address her persistent reflux symptoms despite famotidine by switching her to omeprazole 40 mg extended release twice daily. She has Zofran available at home and advised to use as needed should nausea persist. Hydration with fluids and electrolytes encouraged. Patient provided with discharge instructions and will follow-up closely with her primary obstetrical provider on an as needed basis. OB Disposition: home
== END 2024-09-14 13:29 | disposition home or self-care (01) ==
LOC: LABOR 13:28 → OB 09-19 09:28
PROVIDERS: Referring Provider Family Medicine; Visit Provider Family Medicine
DX: O26.893 Other specified pregnancy related conditions, third trimester (principal); R11.2 Nausea with vomiting, unspecified; K21.9 Gastro-esophageal reflux disease without esophagitis; Z3A.28 28 weeks gestation of pregnancy
CPT/HCPCS: 59025; G0378; G0379

== ENCOUNTER 2024-10-22 22:49 | Observation (INO) | payer OTHER, SELFPAY ==
[2024-09-02 15:51] VITALS: BMI 28.3
[2024-10-23 00:37] LABS: Appearance Urine UA CLEAR; Bilirubin Urine UA NEGATIVE (NEGATIVE); Color Urine UA YELLOW; Glucose Urine UA NEGATIVE (Negative); Ketones Urine UA NEGATIVE (NEGATIVE); Leukocyte Esterase Urine UA NEGATIVE (NEGATIVE); Nitrite Urine UA NEGATIVE (Negative); Occult Blood Urine UA NEGATIVE (Negative); Protein Urine UA NEGATIVE (Negative); Specific Gravity Urine UA <=1.005 (1.000-1.035); Urobilinogen Urine UA 0.2 E.U./dL (0.2)
[2024-10-23 00:39] LABS: Add Manual Diff / Slide Review NO; Basophils Absolute Auto 100 /uL (0-100); Basophils Percent Auto 0.4 % (0-2); Eosinophils Absolute Auto 200 /uL (0-450); Hematocrit 30.6 % (36-46); Hemoglobin 10.4 g/dL (12.0-16.0); Lymphocytes Absolute Auto 2100 /uL (1100-4500); Lymphocytes Percent Auto 16.7 % (25-40); Mean Corpuscular HGB Conc 33.8 % (30-36); Mean Corpuscular Hemoglobin 27.5 PG (26-34); Mean Corpuscular Volume 81.5 fL (80-100); Monocytes Absolute Auto 1100 /uL (0-900); Monocytes Percent Auto 8.9 % (3-14); Neutrophils Absolute Auto 8900 /uL (1500-7000); Platelet Count 306 X10^3/uL (150-400); Red Blood Cell Count 3.76 X10^6/uL (4.0-5.2); Red Cell Distribution Width 13.3 % (11.6-14.8); White Blood Cell Count 12.3 X10^3/uL (4.5-11.0)
[2024-10-23 00:47] LABS: Alanine Aminotransferase 18 IU/L (<35); Albumin 3.8 g/dL (3.5-5.0); Albumin Globulin Ratio 1.3 (1.0-2.8); Alkaline Phosphatase 187 U/L (38-126); Aspartate Aminotransferase 24 IU/L (14-36); BUN Creatinine Ratio 5.7 (6-22); Bilirubin Total 0.4 mg/dL (0.2-1.3); Bilirubin Unconjugated 0.2 mg/dL (0.0-1.1); Blood Urea Nitrogen 3 mg/dL (7-17); Calcium 8.8 mg/dL (8.4-10.2); Carbon Dioxide 19 mmol/L (22-32); Chloride 107 mmol/L (98-107); Creatinine Urine Random 21.82 mg/dL; Estimated Glomerular Filt Rate > 60 mL/min (>60); Globulin 2.9 g/dL (1.7-4.1); Glucose 91 mg/dL (70-100); HEMOLYSIS < 15 (0-50); Potassium 3.6 mmol/L (3.4-5.1); Protein (Total) Urine Random 14 mg/dL (0-12); Protein Creatinine Ratio Urine 0.64 GRAM/24H; Sodium 134 mmol/L (137-145); Total Protein 6.7 g/dL (6.3-8.2); Uric Acid 2.8 mg/dL (2.5-6.2)
[2024-10-23 00:52] LABS: pH Urine UA 6.5 (4.5-8.0)
[2024-10-23 00:53] LABS: Bacteria Urine Few (2-10); RBC Urine None Seen (0-5/HPF); Squamous Epithelial Cell Urine 1-5 /HPF (0-5/HPF); Urine Volume 10mL (spun); WBC Urine None Seen (0-5/HPF)
[2024-10-23 00:54] LABS: Culture Indicated Urine Cult Not Indicated
[2024-10-23 01:20] VITALS: BP 120/66; PULSE 66; RESP 18; TEMP 36.7
[2024-10-23] MEDS: BUTALB/APAP/CAFFEINE 50/325/40 TABLET 1 EACH PO (01:31)
--- NOTE | 2024-10-23 10:24 | P.TNLD_ITS ---
Visit Information Visit Information Date of evaluation: 10/22/24 Primary OB Provider: Narinder Omalley On-call OB Provider: Gely Concepcion Comments/Additional reasons for admission: r/o PIH, 3d severe VELEZ with visual aura, subjective peripheral edema, R sided rib pain, symptomatic urinary frequency with mild dysuria Vital Signs Vital Signs: maternal VSS/afebrile per review in OBIX, normotensive throughout serial monitoring PFSH Medical History Bordetella parapertussis infection Acute pancreatitis Candidal vaginitis Chronic salpingitis Painful menstrual periods (~2020) Irregular menstrual cycle (~2020) Heavy menstrual period (~2018) Ovarian cyst Endometriosis (~2020) Chlamydia infection (~2020) Surgical History Lymphangioma Hx of laparoscopy (07/11/22) Anesthesia S/P ACL reconstruction (~09/11/21) TOA (tubo-ovarian abscess) (~10/01/21) Family History Granddaughter Colon cancer Diabetes mellitus Grandmother Breast cancer Grandmother Endometriosis H/O oophorectomy Congestive heart failure Melanoma Stroke Uncle Diabetes mellitus Down syndrome Mother Skin cancer Social History marital status: number of children: 0 household members: spouse lives independently: Yes caregiver/support person: No housing: house pets and animals: Yes (dog) education level: vocational occupational status: employed and student current occupational exposures/hazards: Yes ([employer]) special amber needs: No travel history: recent seatbelt use: always helmet use: Yes water heater temp set < 120 deg: Yes working smoke detector in home: Yes fire extinguisher in home: Yes carbon monox detector in home: Yes firearms in home: No do you feel safe at home: Yes Smoking Status: Never smoker second hand exposure: No alcohol intake: former substance use type: marijuana during the past year weight has: other well-balanced diet: daily or most days daily servings fruits/ve or more times/day caffeine: Yes (aware of 200mg limit) Type(s) of exercise: none Objective Labs 10/22/24 23:15 10/22/24 23:15 Labs: Laboratory Results - last 24 hr 10/22/24 23:15 WBC 12.3 H RBC 3.76 L Hgb 10.4 L Hct 30.6 L MCV 81.5 MCH 27.5 MCHC 33.8 RDW 13.3 Plt Count 306 Neut % (Auto) 72.0 Lymph % (Auto) 16.7 L [place] % (Auto) 8.9 Eos % (Auto) 2.0 Baso % (Auto) 0.4 Neut # (Auto) 8900 H Lymph # (Auto) 2100 [place] # (Auto) 1100 H Eos # (Auto) 200 Baso # (Auto) 100 Sodium 134 L Potassium 3.6 Chloride 107 Carbon Dioxide 19 L BUN 3 L Creatinine 0.53 Estimated GFR > 60 BUN/Creatinine Ratio 5.7 L Glucose 91 Uric Acid 2.8 Calcium 8.8 Total Bilirubin 0.4 Conjugated Bilirubin 0.0 Unconjugated Bilirubin 0.2 AST 24 ALT 18 Alkaline Phosphatase 187 H Total Protein 6.7 Albumin 3.8 Globulin 2.9 Albumin/Globulin Ratio 1.3 Urine Color Yellow Urine Appearance Clear Urine pH 6.5 Ur Specific [place] <=1.005 Urine Protein Negative Urine Glucose (UA) Negative Urine Ketones Negative Urine Occult Blood Negative Urine Nitrate Negative Urine Bilirubin Negative Urine Urobilinogen 0.2 Ur Leukocyte Esterase Negative Urine RBC None seen Urine WBC None seen Ur Squamous Epith Cells 1-5 /hpf Urine Bacteria Few (2-10) H Ur Culture Indicated? Cult not indicated Vol Urine Centrifuged 10ml (spun) U Random Total Protein 14 H Urine Creatinine 21.82 Protein/Creatinin Ratio 0.64 Diagnosis, Plan/Disposition Plan/Disposition Plan: normotensive, PIH labs negative with exception of elevated Pr/Cr 0.67 empiric treatment of presumed UTI, +bacteria (clean catch), however not sent for culture per lab --> rx for macrobid BID x5d sent 10/23/24 to pt pharmacy pt instructed to start 24h urine collection AM 1/4, return 1/5 for interval NST VELEZ improved wtih PO fioricet strict PIH precautions OB Disposition: home
== END 2024-10-23 01:33 | disposition home or self-care (01) ==
PROVIDERS: Obstetrics & Gynecology; Admitting Provider Family Medicine; Referring Provider Family Medicine; Visit Provider Family Medicine
DX: O26.893 Other specified pregnancy related conditions, third trimester (principal); R51.9 Headache, unspecified; O12.03 Gestational edema, third trimester; H53.8 Other visual disturbances; R07.81 Pleurodynia; R35.0 Frequency of micturition; R30.0 Dysuria; Z3A.33 33 weeks gestation of pregnancy
CPT/HCPCS: 36415; 59025; 80053; 80076; 81001; 84550; 85025; G0378; G0379

== ENCOUNTER 2024-10-25 08:23 | Observation (INO) | payer OTHER, SELFPAY ==
[2024-09-02 15:51] VITALS: BMI 28.3
[2024-10-25] MEDS: ACETAMINOPHEN 325 MG TABLET 650 MG PO (09:05)
--- NOTE | 2024-10-25 09:05 | PM.OBTRLD ---
Visit Information Visit Information Date of evaluation: 10/25/24 Primary OB Provider: Narinder Omalley On-call OB Provider: Esme Decker Reason for Evaluation: Yes other Comments/Additional reasons for admission: 19 yo G1 at 33w6d here with concerns of pre-eclampsia. She reports headache and RUQ pain. She was seen Friday for similar complaints and was found to have elevated p/c ratio. She has been normotensive but reports elevated pressures into the 140s at home. Vital Signs Vital Signs: BP 118/73, P 92. [facility] Medical History Bordetella parapertussis infection Acute pancreatitis Candidal vaginitis Chronic salpingitis Painful menstrual periods (~2020) Irregular menstrual cycle (~2020) Heavy menstrual period (~2018) Ovarian cyst Endometriosis (~2020) Chlamydia infection (~2020) Surgical History Lymphangioma Hx of laparoscopy (07/11/22) Anesthesia S/P ACL reconstruction (~09/11/21) TOA (tubo-ovarian abscess) (~10/01/21) Family History Granddaughter Colon cancer Diabetes mellitus Grandmother Breast cancer Grandmother Endometriosis H/O oophorectomy Congestive heart failure Melanoma Stroke Uncle Diabetes mellitus Down syndrome Mother Skin cancer Social History marital status: number of children: 0 household members: spouse lives independently: Yes caregiver/support person: No housing: house pets and animals: Yes (dog) education level: vocational occupational status: employed 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) special amber needs: No travel history: recent seatbelt use: always helmet use: Yes water heater temp set < 120 deg: Yes working smoke detector in home: Yes fire extinguisher in home: Yes carbon monox detector in home: Yes firearms in home: No do you feel safe at home: Yes Smoking Status: Never smoker second hand exposure: No alcohol intake: former substance use type: marijuana during the past year weight has: other well-balanced diet: daily or most days daily servings fruits/ve or more times/day caffeine: Yes (aware of 200mg limit) Type(s) of exercise: none Exam Narrative Exam Narrative: NAD, resting comfortably in bed. Objective Labs 10/25/24 08:44 10/25/24 08:44 Evaluation Evaluation Baseline heart rate: 125 Variability: Average (6-10) monitor accelerations: Present Monitor Decelerations: Absent Category of Tracing: Reactive Diagnosis, Plan/Disposition Plan/Disposition Plan: 19 yo G1 at 33w6d here for PIH rule out. Headache decreased with tylenol and fiorecet. CBC/CMP reassuring. 24 hour protein returned but in wrong container and will need to be redone. All blood pressures normal. Follow up with primary OB. OB Disposition: home
[2024-10-25 09:20] LABS: Add Manual Diff / Slide Review NO; Basophils Absolute Auto 0 /uL (0-100); Basophils Percent Auto 0.4 % (0-2); Eosinophils Absolute Auto 100 /uL (0-450); Eosinophils Percent Auto 1.3 % (2-4); Hematocrit 31.4 % (36-46); Hemoglobin 10.5 g/dL (12.0-16.0); Lymphocytes Absolute Auto 1500 /uL (1100-4500); Lymphocytes Percent Auto 13.8 % (25-40); Mean Corpuscular HGB Conc 33.4 % (30-36); Mean Corpuscular Hemoglobin 27.6 PG (26-34); Mean Corpuscular Volume 82.6 fL (80-100); Monocytes Absolute Auto 900 /uL (0-900); Monocytes Percent Auto 8.3 % (3-14); Neutrophils Absolute Auto 8300 /uL (1500-7000); Neutrophils Percent Auto 76.2 % (50-75); Platelet Count 267 X10^3/uL (150-400); Red Cell Distribution Width 13.5 % (11.6-14.8); White Blood Cell Count 10.9 X10^3/uL (4.5-11.0)
[2024-10-25 09:24] LABS: Alanine Aminotransferase 18 IU/L (<35); Albumin 3.6 g/dL (3.5-5.0); Albumin Globulin Ratio 1.3 (1.0-2.8); Alkaline Phosphatase 175 U/L (38-126); Aspartate Aminotransferase 25 IU/L (14-36); BUN Creatinine Ratio 13.2 (6-22); Bilirubin Total 0.5 mg/dL (0.2-1.3); Blood Urea Nitrogen 7 mg/dL (7-17); Calcium 8.9 mg/dL (8.4-10.2); Carbon Dioxide 20 mmol/L (22-32); Chloride 106 mmol/L (98-107); Estimated Glomerular Filt Rate > 60 mL/min (>60); Globulin 2.8 g/dL (1.7-4.1); Glucose 91 mg/dL (70-100); HEMOLYSIS < 15 (0-50); Potassium 3.9 mmol/L (3.4-5.1); Sodium 132 mmol/L (137-145); Total Protein 6.4 g/dL (6.3-8.2)
[2024-10-25] MEDS: BUTALB/APAP/CAFFEINE 50/325/40 TABLET 1 EACH PO (09:51)
== END 2024-10-25 10:00 | disposition home or self-care (01) ==
PROVIDERS: Admitting Provider Student in an Organized Health Care Education/Training Program; Referring Provider Student in an Organized Health Care Education/Training Program; Visit Provider Student in an Organized Health Care Education/Training Program
DX: O26.893 Other specified pregnancy related conditions, third trimester (principal); R51.9 Headache, unspecified; R10.11 Right upper quadrant pain; Z3A.33 33 weeks gestation of pregnancy
CPT/HCPCS: 36415; 59025; 80053; 85025; G0378; G0379

== ENCOUNTER → 2024-11-12 14:58 | Outpatient (CLI) | payer OTHER, SELFPAY ==
[2024-09-02 15:51] VITALS: BMI 28.3
[2024-11-13 11:59] LABS: Strep Grp B PCR NEG for Grp B Strep
== END ==
PROVIDERS: Visit Provider Family Medicine
DX: Z34.93 Encounter for supervision of normal pregnancy, unspecified, third trimester (principal); Z3A.36 36 weeks gestation of pregnancy
CPT/HCPCS: 87653

== ENCOUNTER 2024-11-27 20:28 | Outpatient (CLI) | payer OTHER, SELFPAY ==
[2024-09-02 15:51] VITALS: BMI 28.3
== END 2024-11-27 21:30 | disposition home or self-care (01) ==
LOC: OB 11-29 12:26
PROVIDERS: Referring Provider Obstetrics & Gynecology; Visit Provider Obstetrics & Gynecology
DX: O47.1 False labor at or after 37 completed weeks of gestation (principal); Z03.71 Encounter for suspected problem with amniotic cavity and membrane ruled out; O23.43 Unspecified infection of urinary tract in pregnancy, third trimester; N39.0 Urinary tract infection, site not specified; Z3A.38 38 weeks gestation of pregnancy
CPT/HCPCS: 59025; 84112; G0378; G0379

== ENCOUNTER 2024-11-30 20:41 | Outpatient (CLI) | payer OTHER, SELFPAY ==
[2024-09-02 15:51] VITALS: BMI 28.3
--- NOTE | 2024-11-30 21:55 | PM.OBTRLD ---
Visit Information Visit Information Date of evaluation: 11/30/24 Primary OB Provider: Narinder Omalley On-call OB Provider: Karin Live Reason for Evaluation: Yes rule out labor Vital Signs Vital Signs: reviewed in OBIX, within normal parameters PFSH Medical History Bordetella parapertussis infection Acute pancreatitis Candidal vaginitis Chronic salpingitis Painful menstrual periods (~2020) Irregular menstrual cycle (~2020) Heavy menstrual period (~2018) Ovarian cyst Endometriosis (~2020) Chlamydia infection (~2020) Surgical History Lymphangioma Hx of laparoscopy (07/11/22) Anesthesia S/P ACL reconstruction (~09/11/21) TOA (tubo-ovarian abscess) (~10/01/21) Family History Granddaughter Colon cancer Diabetes mellitus Grandmother Breast cancer Grandmother Endometriosis H/O oophorectomy Congestive heart failure Melanoma Stroke Uncle Diabetes mellitus Down syndrome Mother Skin cancer Social History marital status: number of children: 0 household members: spouse lives independently: Yes caregiver/support person: No housing: house pets and animals: Yes (dog) education level: vocational occupational status: employed 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) special amber needs: No travel history: recent seatbelt use: always helmet use: Yes water heater temp set < 120 deg: Yes working smoke detector in home: Yes fire extinguisher in home: Yes carbon monox detector in home: Yes firearms in home: No do you feel safe at home: Yes Smoking Status: Never smoker second hand exposure: No alcohol intake: former substance use type: marijuana during the past year weight has: other well-balanced diet: daily or most days daily servings fruits/ve or more times/day caffeine: Yes (aware of 200mg limit) Type(s) of exercise: none Evaluation Evaluation Baseline heart rate: 130 Variability: Moderate (11-25) monitor accelerations: Present Monitor Decelerations: Absent Contraction Frequency (minutes): 7 Uterine Contraction Intensity: Mild Status: Category l Cervical dilation (cm): 1 Cervical effacement (%): 50 station: -3 Diagnosis, Plan/Disposition Final Diagnosis (1) Pain during labor: Status: Acute (2) 39 weeks gestation of : Status: Acute Plan/Disposition Plan: 19yo at 39+0wks presented for labor check. In latent labor, with category I tracing. Reviewed pain management options, including IV analgesia or sleep aid for home. Patient desires to try ambien at home. -given 5mg ambien to take -pt to f/u if her ctx worsen, or she feels leaking fluid, vaginal bleeding, or decreased FM OB Disposition: home
[2024-11-30] MEDS: ZOLPIDEM 5 MG TABLET PO (22:06)
== END 2024-11-30 22:08 | disposition home or self-care (01) ==
LOC: OB 12-01 06:32
PROVIDERS: Referring Provider Family Medicine; Visit Provider Student in an Organized Health Care Education/Training Program
DX: O47.1 False labor at or after 37 completed weeks of gestation (principal); Z3A.39 39 weeks gestation of pregnancy
CPT/HCPCS: 59025; G0378; G0379

== ENCOUNTER 2024-12-01 14:26 | Inpatient (IN) | payer OTHER, SELFPAY ==
[2024-09-02 15:51] VITALS: BMI 28.3
[2024-12-01 15:41] LABS: Add Manual Diff / Slide Review NO; Basophils Absolute Auto 0 /uL (0-100); Basophils Percent Auto 0.3 % (0-2); Eosinophils Absolute Auto 100 /uL (0-450); Eosinophils Percent Auto 0.7 % (2-4); Hematocrit 31.8 % (36-46); Hemoglobin 10.5 g/dL (12.0-16.0); Lymphocytes Absolute Auto 1300 /uL (1100-4500); Lymphocytes Percent Auto 13.1 % (25-40); Mean Corpuscular HGB Conc 33.1 % (30-36); Mean Corpuscular Hemoglobin 25.7 PG (26-34); Mean Corpuscular Volume 77.8 fL (80-100); Monocytes Absolute Auto 600 /uL (0-900); Monocytes Percent Auto 6.1 % (3-14); Neutrophils Absolute Auto 8200 /uL (1500-7000); Neutrophils Percent Auto 79.8 % (50-75); Platelet Count 309 X10^3/uL (150-400); Red Blood Cell Count 4.09 X10^6/uL (4.0-5.2); Red Cell Distribution Width 16.1 % (11.6-14.8); White Blood Cell Count 10.3 X10^3/uL (4.5-11.0)
[2024-12-01] MEDS: miSOPROStoL 25 MCG TABLET 50 MCG PO (15:49)
[2024-12-01 15:59] VITALS: BP 130/72
[2024-12-01] MEDS: LACTATED RINGERS 1,000 ML 100 ML IV (17:59)
--- NOTE | 2024-12-01 18:25 | PM.OBHP.IH.1 ---
OB HPI History of Present Condition Chief complaint: INDUCTION FREDRICK Calculator Estimated Delivery Date Method Current WG Current Estimate 12/07/24 Ultrasound #1 39w 1d Other Estimates 11/26/24 LMP (Uncertain) 40w 5d Estimated Gestational Age (weeks): 39 : 1 Para: 0 Narrative: 19-year-old at GA 39+1 weeks presenting for eIOL. Endorses normal movement. Denies vaginal bleeding or denies leakage of fluid. course notable for TB exposure prior to , QuantiFERON gold test negative. care: good care Dating criteria OB: based on 1st trimester US only Ultrasounds: normal 1st trimester US and normal mid trimester US Obstetrical complications: none Medical complications OB: none Preadmission Labs Last OB Lab Results: Blood Type A Positive 12/01/24 14:52 Antibody Screen Negative 12/01/24 14:52 Hct 31.8 % (36-46) L 12/01/24 14:52 Hgb 10.5 g/dL (12.0-16.0) L 12/01/24 14:52 Hep Bs Antigen Negative s/c (NEGATIVE) 04/21/24 14:38 Hepatitis C Antibody Negative s/c (NEGATIVE) 04/21/24 14:38 Rubella Antibody 17.1 IU/mL (>15) 04/21/24 14:38 VZV IgG Antibody 342 index (Immune >165) 04/21/24 14:38 Glucose 1 Hr 50 gm 108 mg/dL (76-139) 09/02/24 14:05 Group B Strep (PCR) Neg for grp b strep 11/12/24 14:58 -: Chlamydia screen: negative and Gonorrhea screen: negative Genetic Screens: Cell-free DNA: Normal Evaluation Evaluation Baseline heart rate: 140 Variability: Moderate (11-25) monitor accelerations: Present Monitor Decelerations: Prolonged (2 min to 130 bpm w/good variability and recovery) and Variable Uterine Contraction Intensity: Mild Category of Tracing: Reactive Status: Category ll Dilation: 1-2 cm Effacement: 40-50% station: -3 Position of cervix: mid Consistency: soft Recinos score: 5 Comments: Exam per L&D RN [facility] Medical History Bordetella parapertussis infection Acute pancreatitis Candidal vaginitis Chronic salpingitis Painful menstrual periods (~2020) Irregular menstrual cycle (~2020) Heavy menstrual period (~2018) Ovarian cyst Endometriosis (~2020) Chlamydia infection (~2020) Surgical History Lymphangioma Hx of laparoscopy (07/11/22) Anesthesia S/P ACL reconstruction (~09/11/21) TOA (tubo-ovarian abscess) (~10/01/21) Family History Granddaughter Colon cancer Diabetes mellitus Grandmother Breast cancer Grandmother Endometriosis H/O oophorectomy Congestive heart failure Melanoma Stroke Uncle Diabetes mellitus Down syndrome Mother Skin cancer Social History marital status: number of children: 0 household members: spouse lives independently: Yes caregiver/support person: No housing: house pets and animals: Yes (dog) education level: vocational occupational status: employed 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) special amber needs: No travel history: recent seatbelt use: always helmet use: Yes water heater temp set < 120 deg: Yes working smoke detector in home: Yes fire extinguisher in home: Yes carbon monox detector in home: Yes firearms in home: No do you feel safe at home: Yes Smoking Status: Never smoker second hand exposure: No alcohol intake: former substance use type: marijuana during the past year weight has: other well-balanced diet: daily or most days daily servings fruits/ve or more times/day caffeine: Yes (aware of 200mg limit) Type(s) of exercise: none Meds Home Medications and Allergies Home Medications Medication Instructions Recorded Confirmed Type folic acid 400 mcg tablet 0.4 mg PO DAILY #90 tabs 05/18/24 12/01/24 Rx omeprazole 40 mg capsule,delayed 40 mg PO BID #60 caps 09/14/24 12/01/24 Rx release ferrous sulfate 325 mg (65 mg 325 mg PO DAILY #30 tabs 10/29/24 12/01/24 Rx iron) tablet Daily 1 tab PO DAILY 11/27/24 12/01/24 History Allergies Allergy/AdvReac Type Severity Reaction Status Date / Time diphenhydramine Allergy Severe ITCHING Verified 10/15/24 16:29 [From Benadryl] lactose Allergy Intermediate Hives/Nause Verified 10/15/24 16:29 a morphine Allergy Intermediate Rash Verified 10/15/24 16:29 doxycycline AdvReac Intermediate vomitt Verified 10/15/24 16:29 amoxicillin AdvReac Vomiting Verified 10/15/24 16:29 OB Exam Narrative Exam Narrative: General: Well-nourished, no distress HEENT: NC/AT, EOMI, moist mucous membranes CV: RRR, normal S1 S2, no m/g/r Resp: CTAB Abd: Gravid, soft, NTND, +BS Ext: Full ROM, no edema Skin: No rash or lesions Neuro: A&O x3, normal tone, no focal deficits Objective Labs 12/01/24 14:52 Labs: Laboratory Results - last 24 hr 12/01/24 14:52 WBC 10.3 RBC 4.09 Hgb 10.5 L Hct 31.8 L MCV 77.8 L MCH 25.7 L MCHC 33.1 RDW 16.1 H Plt Count 309 Neut % (Auto) 79.8 H Lymph % (Auto) 13.[address] [place] % (Auto) 6.1 Eos % (Auto) 0.7 L Baso % (Auto) 0.3 Neut # (Auto) 8200 H Lymph # (Auto) [address] [place] # (Auto) 600 Eos # (Auto) 100 Baso # (Auto) 0 Blood Type A Positive Antibody Screen Negative Assessment and Plan Assessment and Plan Assessment and Plan narrative: 19-year-old at GA 39+1 weeks presenting for eIOL. -admit to L&D -cervical ripening with misoprostol q4h -GBS neg, ppx not indicated -pain control prn if desired by patient -PPH risk low -VTE risk low, SCDs with epidural -anticipate vaginal delivery Time-Based Coding :: 30 spent with patient and on the chart (including review of chart, obtaining history, exam, reviewing outside data, placing orders, documenting exam and treatment plan, and counseling patient) on 12/01/2024.
[2024-12-01] MEDS: DINOPROSTONE VAG (CERVIDIL) 10 MG VAG (21:37)
[2024-12-01] MEDS: LACTATED RINGERS 1,000 ML 999 ML IV (22:59)
[2024-12-02] MEDS: fentaNYL 100 MCG/2 ML INJ 50 MCG IV (00:21)
--- NOTE | 2024-12-02 05:19 | PM.AN.REGBLK ---
[facility] <Eleno Hamm CRNA - Last Filed: 12/02/24 05:31> Pre-procedure Procedure: Continuous Lumbar Epidural for L&D Attending OB provider: Narinder Omalley PMH/ROS narrative: here for eIOL requests epidural for labor pain. PSH/Anesthesia history narrative: See pre-anesthesia note ASA Class: II Labs: Hct 31.8 % (36-46) L 12/01/24 14:52 Plt Count 309 X10^3/uL (150-400) 12/01/24 14:52 Medications: Current Medications Generic Name Dose Route Start Last Admin Trade Name Freq PRN Reason Stop Dose Admin Calcium Carbonate 1,000 mg 12/01/24 15:11 Calcium Carbonate 500 Mg Tab PO Q2HR PRN Dyspepsia Carboprost Tromethamine 250 mcg 12/01/24 15:11 Carboprost 250 Mcg/Ml Ampul IM Q90M PRN Bleeding Diphenhydramine HCl 25 mg 12/02/24 04:06 Diphenhydramine 50 Mg/Ml Vial IV Q10M PRN Pruritis Ephedrine Sulfate 10 mg 12/02/24 04:06 Ephedrine 50 Mg/Ml Vial IV Q5M PRN Blood pressure decrease more than 20% of baseline. Fentanyl 50 mcg 12/01/24 15:11 12/02/24 00:21 Fentanyl 100 Mcg/2 Ml Inj IV 50 mcg Q1H PRN Administration Pain, Moderate (4-6) Oxytocin/Lactated Ringer's 30 unit in 500 mls @ 200 mls/hr 12/01/24 15:11 Oxytocin Premix IV CONT PRN Bleeding Protocol Tranexamic Acid 1,000 mg/ 100 mls @ 600 mls/hr 12/01/24 15:11 Sodium Chloride IV NOW PRN Bleeding FENT 2MCG/ML BUPIV 0.125% EPI 200 mcg in 100 mls @ 6 mls/hr 12/02/24 04:15 Fentanyl/Bupiv/Ns 2mcg/Ml - 0.125% EPIDURAL CONT SAQIB Lidocaine HCl 20 ml 12/01/24 15:11 Lidocaine 1% 20 Ml INJ INTRA-OP PRN Post Delivery Methylergonovine Maleate 0.2 mg 12/01/24 15:11 Methylergonovine 0.2 Mg Tablet PO Q6HR PRN Heavy Bleeding Methylergonovine Maleate 0.2 mg 12/01/24 15:11 Methylergonovine 0.2 Mg/Ml Vial IM NOW PRN Bleeding Mineral Oil 30 ml 12/01/24 15:11 Mineral Oil 30 Ml Udc TOP PRN PRN Version Misoprostol 800 mcg 12/01/24 15:11 Misoprostol 200 Mcg Tablet DC NOW PRN Bleeding Misoprostol 400 mcg 12/01/24 15:11 Misoprostol 200 Mcg Tablet SL NOW PRN Bleeding Misoprostol 50 mcg 12/01/24 15:11 12/01/24 15:49 Misoprostol 25 Mcg Tablet PO 50 mcg Q4H PRN Administration cervical ripening Nalbuphine HCl 2.5 mg 12/02/24 04:06 Nalbuphine 20 Mg/Ml Ampul IV Q10M PRN Pruritis Naloxone HCl 0.2 mg 12/01/24 15:11 Naloxone 0.4 Mg/Ml Vial IV Q2MIN PRN Opiate Reversal Ondansetron HCl 4 mg 12/01/24 15:11 Ondansetron 4 Mg/2 Ml Inj IV Q4HR PRN Nausea And Vomiting Oxytocin 10 unit 12/01/24 15:11 Oxytocin 10 Unit/Ml Vial IM NOW PRN Bleeding Zolpidem Tartrate 5 mg 12/01/24 19:04 Zolpidem 5 Mg Tablet PO BEDTIME PRN Sleep Allergies: Allergies Allergy/AdvReac Type Severity Reaction Status Date / Time diphenhydramine Allergy Severe ITCHING Verified 10/15/24 16:29 [From Benadryl] lactose Allergy Intermediate Hives/Nause Verified 10/15/24 16:29 a morphine Allergy Intermediate Rash Verified 10/15/24 16:29 doxycycline AdvReac Intermediate vomitt Verified 10/15/24 16:29 amoxicillin AdvReac Vomiting Verified 10/15/24 16:29 --: Epidural first placed at L4-L5, DARCY with saline, CSF visualized in spinal needle with DP. 50mcg fentanyl injected into intrathecal space. Catheter threaded smoothly but blood aspirated before giving TD. Catheter removed and replaced at L3-L4 with DARCY (saline) at 6cm. Catheter again threaded smoothly, no blood aspirated, TD negative. Procedure Insertion date: 12/02/24 Insertion time: 04:30 Prep/Local: 1% lidocaine (Chlorhexadine prep) Interspace: L3-L4 Patient position: sitting Needle: 17 gauge Tuohy (27ga spinal needle for CSE) Loss of resistance with: saline DARCY at (cm): 6 Catheter placed at SKIN (cm): 15 Catheter in SPACE (cm): 9 Sensory level: t10 Insertion: Yes CSF, No Blood, No Paresthesia with insertion, No Paresthesia with injection and No Test dose reaction Initial Medications TEST DOSE time: 04:53 TEST DOSE: 1.5% lidocaine with epinephrine 1:200k (mL): 3 BOLUS DOSE time: 04:55 BOLUS DOSE (mL): 5 BOLUS DOSE med: other (50mcg fentanyl, 3ml 1% lidocaine, 5ml saline into epidural space. (Previously 50mcg fentanyl into intrathecal space)) Infusion INFUSION: 0.125% bupivacaine and with fentanyl 2 mcg/mL Initial rate (mL/hr): 6 (4ml PCEA dose q15min) Post-procedure Anesthesia date START: 12/02/24 Anesthesia time START: 04:13 <Narda Neff CRNA - Last Filed: 12/02/24 11:12> Post-procedure Anesthesia date END: 12/02/24 Anesthesia time END: 07:33 Post-procedure Anesthesia Assessment: Yes CV function: HR/BP stable, Yes Resp function: RR/sat/airway adequate, Yes Post-op hydration adequate, Yes Pain control adequate, Yes Nausea & vomiting absent, Yes Temperature > 36 C, Yes Mental status appropriate and Yes Anesthesia complications
[2024-12-02] MEDS: TERBUTALINE 1 MG/ML VIAL 0.25 MG SUBCUT (05:49)
[2024-12-02] MEDS: FAMOTIDINE 20 MG/2 ML VIAL IV (06:14)
[2024-12-02] MEDS: METOCLOPRAMIDE 10 MG/2 ML INJ IV (06:14)
--- NOTE | 2024-12-02 06:26 | P.PNOB_ITS ---
Date/Time Date Patient Seen: 12/02/24 Time Patient Seen: 06:05 Pain Control Pain control: epidural Comments: Notified by RN of nonreassuring heart tracing. Patient resting comfortably epidural in place reports she can feel her toes. Pelvic Exam Dilation (cm): 3 Effacement (%): 80 station: -1 Amniotic membrane status: Bulging Contractions Monitor mode: External Contraction frequency (min): 2 Contraction duration (min): 1 Contraction pattern: Irregular Contraction intensity: Moderate Status status: Category ll Heart Rate Baseline: 135 Monitor Accelerations: Absent Monitor Decelerations: Recurrent and Variable Monitor Variability: Minimal Comments: Tracing notable for periods of minimal variability with intermittent variables and decelerations. Contraction pattern irregular with friends of tachysystole leading to recurrent deep variables. Assessment and Plan Assessment: active labor Plan: Comments: 19-year-old G1 GA 39+2 weeks. MWB: Comfortable with epidural place, states she can her toes. Normotensive until the last 30 minutes, suspect elevated pressures due to shaking. No symptoms of preeclampsia. FWB: Category 2 FHT with minimal variability and recurrent deep variables during runs of tachysystole. Plan: IOL initially started with Cytotec x1 before transition to Cervidil due to decelerations contractions. Cervidil removed after 3 hours due to recurrent variables with irregular contraction pattern. Continued demonstration of intolerance of labor during runs of tachy systole despite repositioning and terbutaline x1. Discussed with patient and that is unlikely baby will able tolerate labor to complete and pushing given she is remote from delivery. Recommend delivery, to which patient is agreeable. Consent form for section was reviewed with the patient. Risk of reaction to medication or anesthesia, risk of bleeding enough to require blood transfusion which she is agreeable to, risk of infection, risk of damage to internal structures such as bowel, bladder, ureters that could require additional surgery to repair. Consent form signed and questions answered. Pre- op instructions reviewed. Precautions reviewed.
[2024-12-02] MEDS: CITRIC ACID/SODIUM CITRATE 15 ML SOLUTION 30 ML PO (06:28)
[2024-12-02] MEDS: CEFAZOLIN 2 GM/100 ML PREMIX 100 ML IV (07:11)
--- NOTE | 2024-12-02 07:27 | SUR.OPER ---
Supine on Padded OR bed, head on pillow, safety belt at thigh, arms secured on padded arm boards at <90 degrees abduction. Bump under right buttock. Legs uncrossed with pillow under knees, gel pad to heels, tape over blanket to lower legs.
--- NOTE | 2024-12-02 07:47 | SUR.OPER ---
Pre-procedure FHT= 140BPM. Viable baby born at 0733. Placenta and cord blood given to OB RN.
[2024-12-02] MEDS: LACTATED RINGERS 1,000 ML 42 ML IV (08:06)
[2024-12-02 08:29] VITALS: BP 105/54; PULSE 71; RESP 16; TEMP 36.4; O2SAT 100
[2024-12-02 08:32] VITALS: BP 105/54; PULSE 70; RESP 16; O2SAT 99
--- NOTE | 2024-12-02 08:37 | PM.OBCS.1 ---
Operative Date/Time/Diagnoses Date of procedure: 12/02/24 Time of procedure: 07:25 Pre-op diagnosis: intolerance of labor Post-op diagnosis: same Procedure & Clinicians Procedure: Primary Low Transverse Section Same procedure as scheduled: Yes Indications: inolerance of labor remote from delivery Surgeon: Narinder Omalley Click Yes if Unassisted: No Skilled Nursing Facilities Professional: Gely Concepcion Reason for Skilled Nursing Facilities Professional: Skilled Nursing Facilities Professional required for the safe, effective, and timely completion of this surgery. The cardiology physician assistant was necessary to retract upon entry into the abdomen and uterus. Assisted with delivery of the infant with fundal pressure. Assisted with closure with retraction, clipping of suture, and closure of the contralateral fascia. Anesthesia Type: Epidural Operative Notes Findings: Viable male in cephalic position. Normal-appearing left fallopian tube and ovary, normal-appearing right ovary s/p salpingectomy. Closure Type: primary Specimen(s): cord blood Intraoperative meds administered: Duramorph and Pitocin Applied: Catheter Estimated Blood Loss (mL): 750 Blood products transfused: none Procedure in detail: Patient was taken to the operating room where epidural anesthesia was found to be adequate. She was then prepared and draped in the usual sterile fashion in the dorsal supine position with a leftward tilt. A Pfannenstiel incision was then made with a scalpel and carried through to the underlying layer of fascia with the Bovie. The fascia was nicked in the midline, and the incision extended laterally with Agarwal scissors. The superior aspect of the fascial incision was then grasped with Kami clamps, elevated, and the underlying rectus muscles dissected off bluntly. Attention was then turned to the inferior aspect of the incision which, in similar fashion, was grasped, tented up with Kami clamps, and rectus muscles dissected off bluntly. The rectus muscles were then in the midline, and peritoneum identified, tented up, and entered bluntly. The peritoneal opening was then extended superiorly and inferiorly with good visualization of the bladder. The bladder blade was then inserted and the vesicouterine peritoneum identified, grasped with pickups, and entered sharply with Metzenbaum scissors. This incision was then extended laterally and the bladder flap created digitally. The bladder blade was then reinserted and the lower uterine segment incised in a transverse fashion with the scalpel. The uterine incision was then extended laterally with blunt traction. Upon entering the amniotic sac there was moderate amount of clear amniotic fluid. The bladder blade was removed and the head delivered atraumatically. The nose and mouth were suctioned with bulb suction, and the remainder of the body delivered without difficulty. The cord was clamped and cut, and the was handed off to the waiting care team. Cord blood was collected and sent. The placenta was then removed by manual expression; the uterus was exteriorized and cleared of all clots and debris. The uterine incision was repaired with 0 Vicryl in a running, locked fashion. A second layer of same suture was used to obtain excellent hemostasis. Tubes and ovaries were examined and were found to be normal, and the uterus returned to the abdomen. The gutters were cleared of all clots. The fascia was reapproximated with 1-0 Vicryl in a running fashion. The subcutaneous layer was copiously irrigated with warm normal saline. The subcutaneous fat was reapproximated with 3-0 Vicryl. The skin was closed with 3-0 Monocryl. Steri-Strips were applied to the incision and a pressure dressing was placed. The uterus was expressed of a small amount of old blood. Sponge, lap, and needle counts were correct x2. The patient tolerated the procedure well and was taken to the recovery room in stable condition. Complications: none Benld Baby 1: Delivery Date: 12/02/24 Delivery Time: 07:33 Gender: Male Presentation: vertex Position: Left Occiput Transverse Details: back down Placental Delivery Description: Expressed Cord Vessel Description: 3 Vessels score (1 min): 6 score (5 min): 9 weight: 6 lb 5.272 oz Post-operative Condition: stable Disposition: PACU Aftercare: routine postop
[2024-12-02 08:38] VITALS: BP 95/57; PULSE 72; RESP 14; O2SAT 100
[2024-12-02 08:44] VITALS: BP 109/62; PULSE 70; RESP 16; TEMP 36.6; O2SAT 99
[2024-12-02] MEDS: ACETAMINOPHEN IV 1,000 MG/100 ML VIAL 400 MG IV (08:51)
[2024-12-02] MEDS: OXYCODONE IR 5 MG TABLET PO (09:05)
[2024-12-02] MEDS: KETOROLAC 30 MG/ML VIAL IV ×3 (09:05→21:01)
[2024-12-02] MEDS: HYDROMORPHONE 0.5 MG INJ IV ×7 (09:14→22:51)
[2024-12-02] MEDS: OXYCODONE IR 10 MG TABLET PO ×3 (12:12→19:58)
[2024-12-02] MEDS: ACETAMINOPHEN 325 MG TABLET 650 MG PO ×2 (16:07→22:51)
[2024-12-02] MEDS: ZOLPIDEM 5 MG TABLET PO (22:51)
[2024-12-02] MEDS: polyethylene glycoL 3350 17 GM POWD.PACK PO (22:51)
[2024-12-02] MEDS: LANOLIN OINT 7 GM 1 APPLIC TOP (22:53)
[2024-12-03] MEDS: HYDROMORPHONE 0.5 MG INJ IV ×9 (01:36→23:41)
[2024-12-03] MEDS: OXYCODONE IR 10 MG TABLET PO ×3 (01:36→23:41)
[2024-12-03] MEDS: KETOROLAC 30 MG/ML VIAL IV (02:48)
[2024-12-03] MEDS: ACETAMINOPHEN 325 MG TABLET 650 MG PO ×4 (04:59→23:41)
[2024-12-03] MEDS: OXYCODONE IR 5 MG TABLET PO ×3 (06:24→15:28)
[2024-12-03 06:38] LABS: Add Manual Diff / Slide Review NO; Basophils Absolute Auto 0 /uL (0-100); Basophils Percent Auto 0.3 % (0-2); Eosinophils Absolute Auto 100 /uL (0-450); Eosinophils Percent Auto 0.4 % (2-4); Hemoglobin 9.3 g/dL (12.0-16.0); Lymphocytes Absolute Auto 1000 /uL (1100-4500); Lymphocytes Percent Auto 8.7 % (25-40); Mean Corpuscular Hemoglobin 25.1 PG (26-34); Mean Corpuscular Volume 78.3 fL (80-100); Monocytes Absolute Auto 700 /uL (0-900); Monocytes Percent Auto 6.2 % (3-14); Neutrophils Absolute Auto 9700 /uL (1500-7000); Neutrophils Percent Auto 84.4 % (50-75); Platelet Count 252 X10^3/uL (150-400); Red Cell Distribution Width 16.3 % (11.6-14.8); White Blood Cell Count 11.5 X10^3/uL (4.5-11.0)
[2024-12-03] MEDS: DOCUSATE 100 MG CAPSULE PO (09:45)
[2024-12-03] MEDS: PRENATAL VIT,CALC/IRON/FOLIC 1 TABLET 1 TAB PO (09:45)
[2024-12-03] MEDS: FERROUS SULFATE 325 MG TABLET PO (09:45)
[2024-12-03] MEDS: IBUPROFEN 600 MG TABLET PO (09:45)
[2024-12-03] MEDS: PANTOPRAZOLE DR 20 MG TABLET PO (15:28)
[2024-12-03] MEDS: KETOROLAC 10 MG TABLET PO ×2 (15:28→21:34)
--- NOTE | 2024-12-03 17:38 | P.PNOB_ITS ---
Subjective - OB Subjective baby status: doing well and nursing well feeding status: exclusively breast feeding Date Patient Seen: 12/03/24 Time Patient Seen: 12:45 Interval history: Moderate pain, continues to request IV breakthrough medication on top of oral regimen. Valdes discontinued this morning, has some concern due to previous experiences with urinary retention after Valdes removal. Difficulty sleeping at night due to discomfort, Ambien helped. Exam Vital Signs (past 8 hours): Oxygen Delivery Method Room Air Narrative Exam Narrative: General: Well-appearing, well-nourished, no distress HEENT: Moist mucous membranes, no pallor CV: Regular rate and rhythm, no murmur auscultated Resp: CTAB, comfortable work of breathing Abdomen: Soft, bowel sounds present, fundus firm below umbilicus with appropriate tenderness, incision c/d/i Extremities: No edema, no calf tenderness or evidence of DVT Objective Labs 12/03/24 06:30 Labs: Laboratory Results - last 24 hr 12/03/24 06:30 WBC 11.5 H RBC 3.70 L Hgb 9.3 L Hct 29.0 L MCV 78.3 L MCH 25.1 L MCHC 32.0 RDW 16.3 H Plt Count 252 Neut % (Auto) 84.4 H Lymph % (Auto) 8.7 L [place] % (Auto) 6.2 Eos % (Auto) 0.4 L Baso % (Auto) 0.3 Neut # (Auto) 9700 H Lymph # (Auto) 1000 L [place] # (Auto) 700 Eos # (Auto) 100 Baso # (Auto) 0 Assessment & Plan Assessment and Plan (1) delivery delivered: Status: Acute (2) Anemia affecting : Status: Acute (3) Acute postoperative anemia due to expected blood loss: Status: Acute Plan day: 1 plan OB: routine postop care Comments: POD #1 s/p pLTCS Clinically stable, recovering well Pain management as needed support s/p consult Encourage ambulation, flatus/BM prior to discharge Bleeding appropriate for course, monitor Likely discharge home POD #2 Time-Based Coding :: 20 minutes spent with patient and on the chart (including review of chart, obtaining history, exam, reviewing outside data, placing orders, documenting exam and treatment plan, and counseling patient) on 12/03/2024.
[2024-12-04] MEDS: HYDROMORPHONE 0.5 MG INJ IV ×4 (01:40→07:29)
[2024-12-04] MEDS: KETOROLAC 10 MG TABLET PO ×2 (03:22→09:30)
[2024-12-04] MEDS: OXYCODONE IR 10 MG TABLET PO ×3 (03:23→11:16)
[2024-12-04] MEDS: ZOLPIDEM 5 MG TABLET PO (03:23)
[2024-12-04] MEDS: ACETAMINOPHEN 325 MG TABLET 650 MG PO ×2 (05:49→12:23)
[2024-12-04] MEDS: PANTOPRAZOLE DR 20 MG TABLET PO (06:48)
[2024-12-04] MEDS: FERROUS SULFATE 325 MG TABLET PO (09:30)
[2024-12-04] MEDS: DOCUSATE 100 MG CAPSULE PO (09:30)
[2024-12-04] MEDS: PRENATAL VIT,CALC/IRON/FOLIC 1 TABLET 1 TAB PO (09:30)
--- NOTE | 2024-12-04 13:36 | PM.OBDS.1 ---
Discharge Providers Provider Date of admission: 12/01/24 14:26 Discharge Date: 12/04/24 Primary care physician: Felton KAPADIA Provider Consults: 12/01/24 15:11 Consult to Anesthesiology Urgent Comment: Consulting Provider: Eleno Hamm Reason for consultation: Epidural 12/02/24 08:55 Consult to Chemist Physical Routine Comment: Discharge provider: Narinder Omalley MD Summary Hospital Course Date Patient Seen: 12/04/24 Time Patient Seen: 13:38 Diagnoses: #term # delivery delivered #anemia #postoperative anemia Hospital Course: Admitted for eI at [place] 39+2 weeks on 12/01/2024. Progressed to 4 cm dilation ultimately delivered via urgent due to intolerance of labor. She had an uncomplicated CS of a live male infant. Her course was uncomplicated. At discharge patient is ambulating well, tolerating normal diet, breast-feeding without difficulty, and pain is adequately controlled. She reports bleeding is less than normal menses. Peripartum Data Delivery Method: Section Laceration Description: None Procedures: Primary low transverse section complications: none 1: Gender: Male Disposition of : NICU Discharge Diagnosis (1) delivery delivered: Start Date: 12/02/24 Status: Acute (2) Anemia affecting : Status: Acute (3) Acute postoperative anemia due to expected blood loss: Start Date: 12/02/24 Status: Acute Status at Discharge Cognitive/behavioral status at discharge: at baseline, oriented Functional status at discharge: independent ambulation Overall status at discharge: patient is progressing back to baseline Time Spent with Patient Time attestation: Total time spent providing and/or coordinating discharge services: 30 minutes Objective Labs 12/03/24 06:30 Exam Vital Signs (past 8 hours): Oxygen Delivery Method Room Air Narrative Exam Narrative: General: Well-appearing, well-nourished, no distress HEENT: Moist mucous membranes, no pallor CV: Regular rate and rhythm, no murmur auscultated Resp: CTAB, comfortable work of breathing Abdomen: Soft, bowel sounds present, fundus firm below umbilicus with appropriate tenderness, incision c/d/i Extremities: No edema, no calf tenderness or evidence of DVT Discharge Plan Discharge orders & Medications Discharge Orders: Discharge (Order); Ordered 12/04/24 Ordered By: Narinder P Shahram Prescriptions: New acetaminophen 325 mg Tablet 650 mg PO Q6H PRN (Reason: pain) Qty: 90 1RF docusate sodium 100 mg Capsule 100 mg PO DAILY Qty: 60 0RF polyethylene glycol 3350 17 gram/dose powder 17 g PO DAILY Qty: 510 1RF ibuprofen 600 mg Tablet 600 mg PO Q6H Qty: 90 1RF oxycodone 5 mg tablet See Rx Instructions .ROUTE .COMPLEX PRN (Reason: pain) Qty: 20 0RF Rx Instructions: Take 1-2 tabs every 6 hours as needed for moderate to severe pain Continued folic acid 400 mcg tablet 0.4 mg PO DAILY Qty: 90 2RF ferrous sulfate 325 mg (65 mg iron) tablet 325 mg PO DAILY Qty: 30 3RF Patient Comments: Patient takes every other day. omeprazole 40 mg capsule,delayed release(DR/EC) 40 mg PO BID Qty: 60 6RF Daily 1 tab PO DAILY Follow up/Referrals: Narinder Omalley MD [Physician] - (One week incision check with Dr. Omalley on December 09 1:30 pm. Six week follow-up with Dr. Omalley on January 14 at 10:00 am. Esquivel's appts: December 07 at 2:[address] Omalley) Provider,Felton KAPADIA [Primary Care Provider] - Diet/Activity/Treatments Diet: Diet as Tolerated Skin/Wound/Dressing Care Report to your healthcare provider any signs of infection, such as:: chills, fever, night sweats, increased pain, unusual drainage and unusual redness Visit Report/Discharge Packet Stand Alone Forms: Patient Portal/API, Stroke Signs & Symptoms Discharge Data Primary Care Provider: ProviderFelton
== END 2024-12-04 12:55 | disposition home or self-care (01) | DRG 788 ==
PROVIDERS: Admitting Provider Family Medicine; Referring Provider Family Medicine; Visit Provider Family Medicine
PROC: 10D00Z1 Extraction of Products of Conception, Low, Open Approach (ICD-10-PCS; CPT 59514; principal; 2024-12-02 07:00)
DX: O76 Abnormality in fetal heart rate and rhythm complicating labor and delivery (principal); Z3A.39 39 weeks gestation of pregnancy; Z37.0 Single live birth
CPT/HCPCS: 36415; 59050; 59200; 59510; 59514; 85025; 86850; 86900; 86901; G0379; J0131; J0690; J1171; J1885; J2405; J2765; J3010

== ENCOUNTER → 2025-02-21 11:45 | Outpatient (CLI) | payer OTHER, SELFPAY ==
[2024-09-02 15:51] VITALS: BMI 28.3
[2025-02-21 14:20] LABS: COVID-19 CEPHEID 4-PLEX PCR Negative (Negative); Influenza A - CEPHEID Flu A NEGATIVE (NEGATIVE); Influenza B - CEPHEID Flu B NEGATIVE (NEGATIVE); Respiratory Syncytial Virus Negative (Negative)
== END ==
PROVIDERS: Visit Provider Family Medicine
DX: R05.9 Cough, unspecified (principal)
CPT/HCPCS: 0241U

== ENCOUNTER → 2025-03-01 13:56 | Outpatient (CLI) | payer OTHER, SELFPAY ==
[2024-09-02 15:51] VITALS: BMI 28.3
[2025-03-01 14:47] LABS: Hematocrit 35.7 % (36-46); Hemoglobin 11.9 g/dL (12.0-16.0); Mean Corpuscular HGB Conc 33.3 % (30-36); Mean Corpuscular Hemoglobin 25.3 PG (26-34); Mean Corpuscular Volume 76.1 fL (80-100); Platelet Count 472 X10^3/uL (150-400); Red Blood Cell Count 4.69 X10^6/uL (4.0-5.2); Red Cell Distribution Width 17.4 % (11.6-14.8); White Blood Cell Count 7.6 X10^3/uL (4.5-11.0)
[2025-03-01 15:17] LABS: Free T3, Triiodothyronine Free 3.49 pg/mL (2.77-5.27)
[2025-03-01 15:31] LABS: TSH w/ Reflex to FT4 0.67 uIU/mL (0.47-4.68)
[2025-03-01 15:36] LABS: Ferritin 8 ng/mL (6-137)
== END ==
PROVIDERS: Referring Provider Family Medicine; Visit Provider Family Medicine
DX: O99.019 Anemia complicating pregnancy, unspecified trimester (principal); O92.4 Hypogalactia
CPT/HCPCS: 36415; 82728; 84443; 84481; 85027

== ENCOUNTER → 2025-04-25 14:31 | Outpatient (CLI) | payer OTHER, SELFPAY ==
[2024-09-02 15:51] VITALS: BMI 28.3
[2025-04-25 15:56] LABS: Hematocrit 39.2 % (36-46); Hemoglobin 13.3 g/dL (12.0-16.0); Lymphocytes Absolute Auto 1700 /uL (1100-4500); Mean Corpuscular HGB Conc 33.9 % (30-36); Mean Corpuscular Hemoglobin 27.5 PG (26-34); Mean Corpuscular Volume 81.1 fL (80-100); Platelet Count 360 X10^3/uL (150-400)
[2025-04-25 15:59] LABS: Add Manual Diff / Slide Review SLIDE REVIEW
[2025-04-25 16:10] LABS: RBC Morphology Normal Morphology
[2025-04-25 16:44] LABS: HEMOLYSIS < 15 (0-50); Iron 126 ug/dL (37-170)
[2025-04-25 16:47] LABS: Alanine Aminotransferase 24 IU/L (<35); Albumin 4.7 g/dL (3.5-5.0); Albumin Globulin Ratio 2.0 (1.0-2.8); Alkaline Phosphatase 153 U/L (38-126); Blood Urea Nitrogen 11 mg/dL (7-17); Calcium 10.1 mg/dL (8.4-10.2); Carbon Dioxide 27 mmol/L (22-32); Chloride 103 mmol/L (98-107); Estimated Glomerular Filt Rate > 60 mL/min (>60); Globulin 2.4 g/dL (1.7-4.1); Glucose 76 mg/dL (70-99); HEMOLYSIS < 15 (0-50); Potassium 4.5 mmol/L (3.4-5.1); Sodium 138 mmol/L (137-145); Total Protein 7.1 g/dL (6.3-8.2)
[2025-04-25 16:57] LABS: Percent Iron Saturation 30 % (15-50); Total Iron Binding Capacity 421 ug/dL (265-497); Transferrin 361 mg/dL (206-381)
[2025-04-25 17:01] LABS: Vitamin D 25 Hydroxy (D3) 22.4 ng/mL (30.0-100.0)
[2025-04-25 17:22] LABS: Ferritin 10 ng/mL (6-137)
== END ==
PROVIDERS: Referring Provider Family Medicine; Visit Provider Family Medicine
DX: D50.9 Iron deficiency anemia, unspecified (principal); R53.83 Other fatigue
CPT/HCPCS: 36415; 80053; 82306; 82728; 83540; 83550; 85025

== ENCOUNTER 2025-10-19 10:39 | Emergency (ER) | payer OTHER, SELFPAY ==
[2024-09-02 15:51] VITALS: BMI 28.3
--- OUTSIDE RECORDS SUMMARY | 2025-10-19 10:43 | XMS_ITS | Encounter Summary ---
Author Organization [facility] Address [address] [place] [address] Care Team Providers Care Executive Officer Special Warfare Team Name Role Phone Pcp, None Selected Primary Care Provider Unavail able Encounter Details Date Type Department Care Team (Latest Contact Info) Description 06/06/2023 Orders Only [facility] [place] [address] [place] [address] Jon Foote MD [address] [address] Acute pancreatitis, unspecified complication status, unspecified pancreatitis type (Primary Dx) Social History Tobacco Use Types Packs/Day Years Used Date Smoking Tobacco: Never Assessed Comments No Sex and Gender Information Value Date Recorded Sex Assigned at Female 06/06/2023 1:49 AM PDT Legal Sex Female 1:30 PM PDT Gender Identity Female 06/06/2023 1:49 AM PDT Sexual Orientation Not on file documented as of this encounter Plan of Treatment Not on file documented as of this encounter Visit Diagnoses Diagnosis Acute pancreatitis, unspecified complication status, unspecified pancreatitis type- Primary documented in this encounter Additional Health Concerns Infection Onset Date Last Indicated Resolved Time R/O Gastroenteritis 09/22/2023 09/22/2023 09/22/20 8:21 AM PST documented as of this encounter Care Teams Executive Officer Special Warfare Team Relationship Specialty Start Date End Date Pcp, None Selected PCP - General 02/03/25 documented as of this encounter
[2025-10-19 11:07] VITALS: BP 155/65; PULSE 73; RESP 16; TEMP 36.6; O2SAT 100; BMI 23.1
--- NOTE | 2025-10-19 11:15 | ED_ITS ---
HPI - URI/Sore Throat <Kristen Castañeda PA-C - Last Filed: 10/20/25 10:12> General Chief Complaint: Upper Respiratory Symptoms Stated Complaint: sick for 1 week , possible Laryngitis Time Seen by Provider: 10/19/25 11:05 Source: patient Mode of arrival: Ambulatory History of Present Illness HPI Narrative: Ms. Zuleta is a pleasant 20-year-old female, 10 months currently , who presents to the emergency department for ?cold-like symptoms? x1 week and weight loss x3 months. Patient states her and her [id number] developed cold-like symptoms 1 week ago however her baby's symptoms only lasted 2 days and her symptoms have persisted and are not getting better. She reports having generalized body aches, neck pain, chills, sinus congestion, nasal drainage, headache, dry cough, mild sore throat and mild ear congestion in the left side. She is also having some dysuria. She denies chest pain, shortness of breath, productive cough, abdominal pain, nausea, vomiting, diarrhea, constipation. Patient states that she has also been losing weight over the last 3 months without trying to and she has also been extremely fatigued. She took Mucinex prior to arrival. She did not receive the flu vaccine. No daily prescription medications. Related Data Home Medications ?Medication ?Instructions ?Recorded ?Confirmed Daily 1 tab PO DAILY 11/27/2403/21 Previous Rx's ?Medication ?Instructions ?Recorded omeprazole 40 mg capsule,delayed 40 mg PO BID #60 caps 09/14/24 release ferrous sulfate 325 mg (65 mg 325 mg PO DAILY #30 tabs 10/29/24 iron) tablet acetaminophen 325 mg tablet 650 mg (2 x 325 mg) PO Q6H PRN 12/04/24 pain #90 tabs polyethylene glycol 3350 17 17 g PO DAILY #510 grams 0 12/04/24 gram/dose oral powder bupropion HCl 150 mg 24 hr tablet, 150 mg PO QAM #30 t abs 03/26/25 extended release (Wellbutrin XL) cefdinir 300 mg capsule 600 mg (2 x 300 mg) PO DAILY 7 10/19/25 days #7 caps ketorolac 10 mg tablet 10 mg PO Q8H PRN pain #14 ta bs 10/19/25 Allergies Allergy/AdvReac Type Severity Reaction Status Date / Time diphenhydramine (From Allergy Severe ITCHING Verified 10/19/25 11:07 Benadryl) lactose Allergy Intermediate Hives/Nause Verified 10/19/25 11:07 a morphine Allergy Intermediate Rash Verified 10/19/25 11:07 doxycycline AdvReac Intermediate vomitt Verified 10/19/25 11:07 amoxicillin AdvReac Vomiting Verified 10/19/25 11:07 Review of Systems <Kristen Castañeda PA-C - Last Filed: 10/20/25 10:12> Review of Systems ROS Unobtainable: All systems reviewed & are unremarkable except as noted in HPI and below Patient History <Kristen Castañeda PA-C - Last Filed: 10/20/25 10:12> Medical History delivery delivered Bordetella parapertussis infection Acute pancreatitis Candidal vaginitis Chronic salpingitis Painful menstrual periods (~2020) Irregular menstrual cycle (~2020) Heavy menstrual period (~2018) Ovarian cyst Endometriosis (~2020) Chlamydia infection (~2020) Surgical History Lymphangioma Hx of laparoscopy (07/11/22) History of unilateral salpingectomy (07/11/22) Anesthesia S/P ACL reconstruction (~09/11/21) TOA (tubo-ovarian abscess) (~10/01/21) Family History Granddaughter Colon cancer Diabetes mellitus Grandmother Breast cancer Grandmother Endometriosis H/O oophorectomy Congestive heart failure Melanoma Stroke Uncle Diabetes mellitus Down syndrome Mother Skin cancer Social History marital status: number of children: 0 household members: spouse lives independently: Yes caregiver/support person: No housing: house pets and animals: Yes (dog) education level: vocational occupational status: employed 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) special amber needs: No travel history: recent seatbelt use: always helmet use: Yes water heater temp set < 120 deg: Yes working smoke detector in home: Yes fire extinguisher in home: Yes carbon monox detector in home: Yes firearms in home: No do you feel safe at home: Yes Smoking Status: Current some day smoker second hand exposure: No alcohol intake: former substance use type: marijuana during the past year weight has: other well-balanced diet: daily or most days daily servings fruits/ve or more times/day caffeine: Yes (aware of 200mg limit) Type(s) of exercise: none Smoking Status: Current some day smoker tobacco type: vaping alcohol intake frequency: holidays/special occasions only Alcohol type: other Exam <Kristen Castañeda PA-C - Last Filed: 10/20/25 10:12> Narrative Exam Narrative: GENERAL: 20 year old patient appears stated age. Well-developed patient, in no acute distress. HEAD: Atraumatic. Normocephalic. EYES: PERRL. Extraocular motions intact. No scleral icterus. No injection or drainage. ENT: Bilateral ear canals clear. Right TM with posterior fusion. Left TM also with effusion and about 25% of the TM does have erythema. No bulging. Nasal congestion present. There is posterior oropharyngeal erythema but no tonsillar hypertrophy exudates. Uvula is midline. Airway patent. NECK: Trachea midline. Cervical ROM intact. No palpable lymphadenopathy. CARDIOVASCULAR: Regular rate and rhythm. RESPIRATORY: ?Nonlabored respirations. ?Speaking in clear, full sentences. ?Clear to auscultation. Breath sounds equal bilaterally. No wheezes, rales, or rhonchi. ? NEURO: AOx3. ?Clear speech. ?Moves all 4 extremities appropriately. SKIN: No rash or erythema of visible areas Initial Vital Signs Initial Vital Signs: Vital Signs Temperature 97.8 F 10/19/25 11:07 Pulse Rate 73 10/19/25 11:07 Respiratory Rate 16 10/19/25 11:07 Blood Pressure 155/65 H 10/19/25 11:07 Pulse Oximetry 100 10/19/25 11:07 Oxygen Delivery Method Room Air 10/19/25 11:07 <Patti Mcgraw MD - Last Filed: 10/20/25 23:54> Initial Vital Signs Initial Vital Signs: Vital Signs Temperature 97.8 F 10/19/25 11:07 Pulse Rate 73 10/19/25 11:07 Respiratory Rate 16 10/19/25 11:07 Blood Pressure 155/65 H 10/19/25 11:07 Pulse Oximetry 100 10/19/25 11:07 Oxygen Delivery Method Room Air 10/19/25 11:07 Course <Kristen Castañeda PA-C - Last Filed: 10/20/25 10:12> Orders Ordered: Discontinued Medications Sodium Chloride (Normal Saline 0.9%) 1,000 mls @ 1,000 mls/hr IV BOLUS ONE Stop: 10/19/25 12:13 Last Infusion: 10/19/25 12:58 Dose: Infused Documented By: Admin: 10/19/25 11:59 Dose: 1,000 mls/hr Documented By: KHADIJAH Ketorolac Tromethamine (Ketorolac 30 Mg/Ml Vial) 15 mg IV NOW ONE Stop: 10/19/25 11:15 Last Admin: 10/19/25 11:59 Dose: 15 mg Documented By: BS Vital Signs Vital signs: Vital Signs - 8 hr 10/19/25 11:07 Temperature 97.8 F Pulse Rate 73 Respiratory Rate 16 Blood Pressure 155/65 H Pulse Oximetry 100 Oxygen Delivery Method Room Air <Patti Mcgraw MD - Last Filed: 10/20/25 23:54> Orders Ordered: Discontinued Medications Sodium Chloride (Normal Saline 0.9%) 1,000 mls @ 1,000 mls/hr IV BOLUS ONE Stop: 10/19/25 12:13 Last Infusion: 10/19/25 12:58 Dose: Infused Documented By: Admin: 10/19/25 11:59 Dose: 1,000 mls/hr Documented By: KHADIJAH Ketorolac Tromethamine (Ketorolac 30 Mg/Ml Vial) 15 mg IV NOW ONE Stop: 10/19/25 11:15 Last Admin: 10/19/25 11:59 Dose: 15 mg Documented By: BS Vital Signs Vital signs: Vital Signs - 8 hr 10/19/25 11:07 Temperature 97.8 F Pulse Rate 73 Respiratory Rate 16 Blood Pressure 155/65 H Pulse Oximetry 100 Oxygen Delivery Method Room Air MDM - URI/Sore Throat <Kristen Castañeda PA-C - Last Filed: 10/20/25 10:12> Medical Records Attestation: I reviewed the patient's medical records. Lab Data 10/19/25 11:35 10/19/25 11:35 Labs: Lab Results 10/19/25 10/19/25 10/19/25 Range/Units 11:12 11:19 11:35 WBC 10.0 (4.5-11.0) X10^3/uL RBC 4.80 (4.0-5.2) X10^6/uL Hgb 14.2 (12.0-16.0) g/dL Hct 41.8 (36-46) % MCV 87.1 (80-100) fL MCH 29.6 (26-34) PG MCHC 34.0 (30-36) % RDW 13.1 (11.6-14.8) % Plt Count 321 (150-400) X10^3/uL Neut % (Auto) 80.2 H (50-75) % Lymph % (Auto) 10.3 L (25-40) % [place] % (Auto) 6.6 (3-14) % Eos % (Auto) 2.5 (2-4) % Baso % (Auto) 0.4 (0-2) % Neut # (Auto) 8000 H (1781-3354) /uL Lymph # (Auto) 1000 L (5289-7756) /uL [place] # (Auto) 700 (0-900) /uL Eos # (Auto) 200 (0-450) /uL Baso # (Auto) 0 (0-100) /uL Sodium 140 (137-145) mmol/L Potassium 3.7 (3.4-5.1) mmol/L Chloride 104 (98-107) mmol/L Carbon Dioxide 24 (22-32) mmol/L BUN 5 L (7-17) mg/dL Creatinine 0.70 (0.52-1.04) mg/dL Estimated GFR > 60 (>60) mL/min BUN/Creatinine Ratio 7.1 (6-22) Glucose 87 (70-99) mg/dL Calcium 9.2 (8.4-10.2) mg/dL Total Bilirubin 1.1 (0.2-1.3) mg/dL AST 25 (14-36) IU/L ALT 16 (<35) IU/L Alkaline Phosphatase 122 (38-126) U/L Total Protein 7.7 (6.3-8.2) g/dL Albumin 5.0 (3.5-5.0) g/dL Globulin 2.7 (1.7-4.1) g/dL Albumin/Globulin Ratio 1.9 (1.0-2.8) SARS-CoV-2 (PCR) Negative (Negative) Influenza A (RT-PCR) Flu a negative (NEGATIVE) Influenza B (RT-PCR) Flu b negative (NEGATIVE) RSV (PCR) Negative (Negative) Group A Strep (PCR) Negative (Negative) Point of Care Testing Test Results Negative Urine Dip Bedside Urine Glucose Negative Bedside Urine Bilirubin - Negative Bedside Urine Ketone - Negative Urine Specific [place] 1.000 Bedside Urine Occult Blood - Negative Bedside Urine pH 6.0 Bedside Urine Protein - Negative Bedside Urine Urobilinogen - Negative Bedside Urine Nitrite - Negative Bedside Urine Leukocytes - Negative Esterase MDM Narrative Medical decision making narrative: 20-year-old female, 10 months currently , who presents to the emergency department for ?cold-like symptoms? x1 week and weight loss x3 months. Differential diagnosis includes but is not limited to viral syndrome, sinusitis, pharyngitis, acute otitis media, anemia, electrolyte derangement, UTI, etc. On exam the patient is in no acute distress, nontoxic-appearing, all vital signs within normal limits. She has been having cold-like symptoms for 1 week and weight loss and fatigue for 3 months. Physical exam reveals mild posterior oropharyngeal erythema mild erythema of the left TM and nasal congestion. Lungs are clear to auscultation. We will obtain viral swab, strep swab, baseline CBC, CMP, treat with IV fluids, IV Toradol and obtain urinalysis and test. Patient denies concerned for current as her menstrual period was 1 week ago however she reports that it was late. Point of care urinalysis negative. test negative. Labs overall reassuring with normal WBC count 10.0, hemoglobin 14.2 hematocrit 41.8. Platelets 321. Slight elevation neutrophil percentage 80.2. Normal sodium 140, potassium 3.7, BUN 5 creatinine 0.70. Normal LFTs. Negative viral swab swab. Patient feeling better after fluids, still has head pressure. We will treat with cefdinir 600 mg p.o. once daily x7 days for sinusitis and developing left otitis media, appropriate for use during . She was also prescribed ketorolac to help with body aches, [id number] Tylenol and she already has prescription for Zofran. Discussed supportive care. Discussed PCP follow up and strict ER return precautions. Patient verbalized understanding all information agreeable with the plan. She is stable for discharge home. <Patti Mcgraw MD - Last Filed: 10/20/25 23:54> Lab Data Labs: Lab Results 10/19/25 10/19/25 10/19/25 Range/Units 11:12 11:19 11:35 WBC 10.0 (4.5-11.0) X10^3/uL RBC 4.80 (4.0-5.2) X10^6/uL Hgb 14.2 (12.0-16.0) g/dL Hct 41.8 (36-46) % MCV 87.1 (80-100) fL MCH 29.6 (26-34) PG MCHC 34.0 (30-36) % RDW 13.1 (11.6-14.8) % Plt Count 321 (150-400) X10^3/uL Neut % (Auto) 80.2 H (50-75) % Lymph % (Auto) 10.3 L (25-40) % [place] % (Auto) 6.6 (3-14) % Eos % (Auto) 2.5 (2-4) % Baso % (Auto) 0.4 (0-2) % Neut # (Auto) 8000 H (6266-0551) /uL Lymph # (Auto) 1000 L (1670-0039) /uL [place] # (Auto) 700 (0-900) /uL Eos # (Auto) 200 (0-450) /uL Baso # (Auto) 0 (0-100) /uL Sodium 140 (137-145) mmol/L Potassium 3.7 (3.4-5.1) mmol/L Chloride 104 (98-107) mmol/L Carbon Dioxide 24 (22-32) mmol/L BUN 5 L (7-17) mg/dL Creatinine 0.70 (0.52-1.04) mg/dL Estimated GFR > 60 (>60) mL/min BUN/Creatinine Ratio 7.1 (6-22) Glucose 87 (70-99) mg/dL Calcium 9.2 (8.4-10.2) mg/dL Total Bilirubin 1.1 (0.2-1.3) mg/dL AST 25 (14-36) IU/L ALT 16 (<35) IU/L Alkaline Phosphatase 122 (38-126) U/L Total Protein 7.7 (6.3-8.2) g/dL Albumin 5.0 (3.5-5.0) g/dL Globulin 2.7 (1.7-4.1) g/dL Albumin/Globulin Ratio 1.9 (1.0-2.8) SARS-CoV-2 (PCR) Negative (Negative) Influenza A (RT-PCR) Flu a negative (NEGATIVE) Influenza B (RT-PCR) Flu b negative (NEGATIVE) RSV (PCR) Negative (Negative) Group A Strep (PCR) Negative (Negative) Point of Care Testing Test Results Negative Urine Dip Bedside Urine Glucose Negative Bedside Urine Bilirubin - Negative Bedside Urine Ketone - Negative Urine Specific [place] 1.000 Bedside Urine Occult Blood - Negative Bedside Urine pH 6.0 Bedside Urine Protein - Negative Bedside Urine Urobilinogen - Negative Bedside Urine Nitrite - Negative Bedside Urine Leukocytes - Negative Esterase Discharge Plan Departure Patient Disposition: Home Clinical Impression: Sinusitis Qualifiers: Sinusitis location: unspecified location Chronicity: acute Recurrence: non- recurrent Qualified Code(s): J01.90 - Acute sinusitis, unspecified URI (upper respiratory infection) Qualifiers: URI type: unspecified URI Qualified Code(s): J06.9 - Acute upper respiratory infection, unspecified Instructions: Middle Ear Infection, DI for Sinusitis Activity Restrictions/Additional Instructions: Dear Ms. Zuleta, Thank you for coming to the emergency department. I am sorry that you have been feeling sick for the last week. Today your blood work was overall reassuring and your urine test did not reveal signs of an infection and your test was negative. You tested negative for strep, COVID, flu, RSV. At this time I am treating you with antibiotics for so a sinus and developing left ear infection. Please complete the full 7 day course. You may also use the prescribed pain medication in addition to Tylenol. Please rest, increase hydration with electrolyte fluids follow up with the primary care doctor and return to the ER if develop any new or worsening symptoms. Please follow up with your primary care doctor within the next 2-3 days for ER follow-up. (If you do not have a PCP you can call [phone]. ?to schedule an appointment with an [facility] Primary Care Provider) IF YOU DEVELOP ANY NEW OR WORSENING SYMPTOMS, RETURN TO THE ER! Please read the attached instructions, they highlight more specific treatments and interventions for you at home. Thank you for letting me participate in your care, Kristen Castañeda PA-C Prescriptions: New cefdinir 300 mg capsule 600 mg PO DAILY 7 Days Qty: 7 0RF ketorolac 10 mg tablet 10 mg PO Q8H PRN (Reason: pain) Qty: 14 0RF Rx Instructions: maximum total duration of 5 days from all oral, intranasal, or parenteral formulations No Action ferrous sulfate 325 mg (65 mg iron) tablet 325 mg PO DAILY Qty: 30 3RF Patient Comments: Patient takes every other day. bupropion HCl [Wellbutrin XL] 150 mg tablet extended release 24 hr 150 mg PO QAM Qty: 30 3RF omeprazole 40 mg capsule,delayed release(DR/EC) 40 mg PO BID Qty: 60 6RF acetaminophen 325 mg Tablet 650 mg PO Q6H PRN (Reason: pain) Qty: 90 1RF polyethylene glycol 3350 17 gram/dose powder 17 g PO DAILY Qty: 510 1RF Daily 1 tab PO DAILY Referrals: Narinder Omalley MD [Primary Care Provider, Family Practice] Stand Alone Forms: Patient Portal/API ED Sign-out <Patti Mcgraw MD - Last Filed: 10/20/25 23:54> [facility] Attestation: I did not personally see or examine the patient but was available for consultation and supervision throughout the encounter. I reviewed the documentation and agree with the assessment and plan as written. Patti Mcgraw MD Emergency Medicine
[2025-10-19 11:40] LABS: Strep Grp A by PCR Rapid Negative (Negative)
[2025-10-19 11:46] LABS: Add Manual Diff / Slide Review NO; Hematocrit 41.8 % (36-46); Hemoglobin 14.2 g/dL (12.0-16.0); Lymphocytes Absolute Auto 1000 /uL (1100-4500); Mean Corpuscular HGB Conc 34.0 % (30-36); Mean Corpuscular Hemoglobin 29.6 PG (26-34); Mean Corpuscular Volume 87.1 fL (80-100); Platelet Count 321 X10^3/uL (150-400)
[2025-10-19 11:57] LABS: Alanine Aminotransferase 16 IU/L (<35); Albumin 5.0 g/dL (3.5-5.0); Albumin Globulin Ratio 1.9 (1.0-2.8); Alkaline Phosphatase 122 U/L (38-126); Blood Urea Nitrogen 5 mg/dL (7-17); Calcium 9.2 mg/dL (8.4-10.2); Carbon Dioxide 24 mmol/L (22-32); Chloride 104 mmol/L (98-107); Estimated Glomerular Filt Rate > 60 mL/min (>60); Globulin 2.7 g/dL (1.7-4.1); Glucose 87 mg/dL (70-99); HEMOLYSIS < 15 (0-50); Potassium 3.7 mmol/L (3.4-5.1); Sodium 140 mmol/L (137-145); Total Protein 7.7 g/dL (6.3-8.2)
[2025-10-19] MEDS: SODIUM CHLORIDE 0.9% 1,000 ML 1000 ML IV (11:59)
[2025-10-19] MEDS: KETOROLAC 30 MG/ML VIAL 15 MG IV (11:59)
[2025-10-19 12:11] LABS: Influenza A - CEPHEID Flu A NEGATIVE (NEGATIVE); Influenza B - CEPHEID Flu B NEGATIVE (NEGATIVE)
[2025-10-19 12:16] LABS: COVID-19 CEPHEID 4-PLEX PCR Negative (Negative)
[2025-10-19 14:27] VITALS: O2SAT 97
[2025-10-19 14:28] VITALS: BP 111/70; PULSE 80; RESP 18; O2SAT 97
== END 2025-10-19 14:33 | disposition home or self-care (01) ==
PROVIDERS: Emergency Provider Physician Assistant; PCP Family Medicine
DX: J01.90 Acute sinusitis, unspecified (principal); J06.9 Acute upper respiratory infection, unspecified; R63.4 Abnormal weight loss; Z68.23 Body mass index [BMI] 23.0-23.9, adult; F17.200 Nicotine dependence, unspecified, uncomplicated
CPT/HCPCS: 80053; 81003; 81025; 85025; 87637; 87651; 96374; 99283; 99284; J1885; J7030